=== PATIENT | female | born 1945 | race Caucasian/White ===

== ENCOUNTER 2017-05-07 08:05 | Inpatient (IN) | payer MEDICARE, BC ==
[~2017-05-07 08:05] MED LIST: LACTATED RINGERS 1,000 ML IV SCH; SODIUM CHLORIDE 0.9% 1,000 ML IV SCH
[2017-05-07] MEDS ORDERED: PROTAMINE SULFATE 10 MG/ML 5 ML VIAL IV ONE ×2 (09:32→13:15)
[2017-05-07] MEDS ORDERED: PROPOFOL 10 MG/ML 20 ML VIAL IV ONE (09:32)
[2017-05-07] MEDS ORDERED: HEPARIN SODIUM,PORCINE 10,000 UNIT/ML 1 ML VIAL ONE (09:32)
[2017-05-07] MEDS ORDERED: LIDOCAINE 1% INJ 10MG/ML (20 ML MDV) ONE (09:32)
[2017-05-07] MEDS ORDERED: SUCCINYLCHOLINE CHLORIDE VIAL 200 MG/10 ML VIAL IV ONE (09:32)
[2017-05-07] MEDS ORDERED: PHENYLEPHRINE-0.9% NACL SYG 1 MG/10 ML SYRINGE ONE (09:32)
[2017-05-07] MEDS ORDERED: ISOPROTERENOL 250 MCG/1.25 ML SYR IV ONE (09:32)
[2017-05-07] MEDS ORDERED: MIDAZOLAM 2 MG/2 ML VIAL ONE (09:32)
[2017-05-07] MEDS ORDERED: fentaNYL (PF) 50 MCG/ML 2 ML AMP ONE (09:32)
[2017-05-07] MEDS ORDERED: FUROSEMIDE 10 MG/ML 2 ML VIAL ONE (09:32)
[2017-05-07] MEDS ORDERED: LIDOCAINE 2% INJ 20 MG/ML SQ ONE (10:26)
[2017-05-07] MEDS ORDERED: HEPARIN SODIUM,PORCINE/D5W PMX 25,000 UNIT in DEXTROSE/WATER 1 500ML.BAG IV ONE (10:43)
[2017-05-07] MEDS ORDERED: ACETAMINOPHEN TAB 325 MG TAB PO PRN (13:10)
[2017-05-07] MEDS ORDERED: IOHEXOL 350 MG/ML 100 ML BOTTLE INJ ONE ×2 (13:19)
--- NOTE | 2017-05-07 13:22 | P.PCN ---
Preoperative Diagnosis: Procedures performed ([facility] - CRYO Ablation) Invasive hemodynamic monitoring while general anesthesia, right femoral arterial line for monitoring and sampling Comprehensive diagnostic EP study with attempted arrhythmia induction CS pacing and recording Drug infusion Catheter the mapping of the tachycardia (NOT 3D mapping) Intracardiac echocardiography Pulmonary vein isolation with transseptal and comprehensive EPS, [id number] Procedure details Patient was brought to the EP lab in a fasting state. Written informed consent was obtained prior to the procedure. Procedure performed under general anesthesia After initial muscle relaxant use, muscle relaxants were not given thereafter in order to assess phrenic nerve during procedure Patient prepped and draped as per protocol Full cryo-set up with standard preparation of the cryoablation tools done Femoral Venous access obtained on the right and left groins Sheaths placed Diagnostic catheters for the high right atrium, phrenic nerve stimulation and pacing, His bundle, RV and coronary sinus placed Intracardiac echo catheter placed Long sheath placed in the right atrium Left and right transseptal catheterization performed under intracardiac echo guidance Intravenous heparin with aCT above 300 Later, catheter positioning and balloon positioning under intracardiac echo Baseline measurements Sinus cycle length 880 ms, VA interval 176 ms, QRS 76, AH 120 ms, HV 52 ms Comprehensive diagnostic EP study with drug infusion Atrial pacing performed from the high right atrium and the coronary sinus Sinus node recovery time at 600 ms was 1113 ms. Corresponding corrected sinus node recovery time was within normal limits. AV node Wenckebach block 390 ms. VA Wenckebach block greater than 700 ms. AV node Wenckebach block from the Morales sinus 420 ms. Extra stimulation from the coronary sinus 600/310 ms, AV node ERP. No atrial fibrillation induced with Isuprel infusion. No other SVT was induced Transseptal catheterization performed RA pressure 11/5/9 LA pressure is 20/7/9 Transseptal catheterization performed with standard sheath. The cryoablation sheath was then placed with an over the wire exchange without any acute complications. All 4 pulmonary veins were isolated in the following sequence: Left superior followed by left inferior followed by right superior followed by right inferior The cryo-ablation balloon was placed at the os of each vein 1.5 mL of IV dye was injected to confirm an occluded vein Goal during cryoablation was to achieve -30C in the first 30 seconds. If not the balloon was repositioned to obtain this result After completion of Cryoblation with durations from 180-240 seconds, entrance block was confirmed with the Attain circular catheter in a roving fashion around the antrum of the pulmonary veins Phrenic nerve pacing was performed from the SVC, right innominate vein area and diaphragm voltage was monitored as well as manually Left superior pulmonary vein Successful isolation, to cry lesions 3 minutes each Left inferior pulmonary vein Successful isolation to cry lesions 3 minutes each Right superior pulmonary vein, during phrenic nerve pacing 1 cryoablation of 3 minutes complete isolation Right inferior pulmonary vein, during phrenic nerve pacing Total of 5 minutes of cryo, complete isolation, os of the right inferior vein very close to the superior vein but separate. 1 cryoablation was prematurely terminated at 95 seconds because of esophageal cooling down to 27.5C. Quick recovery. Inferior vein completely isolated At the end of the procedure the Achieve catheter was once again used to check for entrance block Phrenic nerve stimulation was performed to confirm diaphragmatic stimulation the end of the procedure Cine fluoroscopy was performed at the very end of the procedure to confirm movement of both diaphragms with inspiration and expiration At the end of the procedure the patient was extubated Heparin was reversed Venous sheaths were removed and hemostasis assured Result Successful pulmonary vein isolation using cryo-ablation Complete entrance block in all 4 veins confirmed No evidence for phrenic nerve injury Anesthesia: GETA Condition: stable Disposition: floor
[2017-05-07] MEDS ORDERED: SODIUM CHLORIDE 0.9% 1,000 ML IV ONE (13:28)
[2017-05-07] MEDS ORDERED: LACTATED RINGERS 1,000 ML IV ONE (13:28)
[2017-05-07] MEDS ORDERED: ACETAMINOPHEN IV (For NPO) 1,000 MG in EMPTY BAG 1 BAG IVPB ONE (14:00)
[2017-05-07 16:17] VITALS: BMI 30.8
[2017-05-07] MEDS: HYDROcodone/APAP 5-325MG 1 EACH TAB PO PRN (20:25)
[2017-05-07] MEDS ORDERED: ONDANSETRON 4 MG/2 ML VIAL IVP PRN (20:44)
[2017-05-07] MEDS: ATORVASTATIN 20 MG TAB PO SCH (21:24)
[2017-05-07] MEDS: RIVAROXABAN 10 MG TAB PO SCH (21:25)
[2017-05-07] MEDS: DULoxetine HCL 30 MG CAPSULE.DR PO SCH (21:25)
[2017-05-07] MEDS: TEMAZEPAM 15 MG CAP PO PRN (21:32)
[2017-05-07] MEDS: HYDROmorphone 1 MG/ML 1 ML SYRINGE IVP PRN (21:42)
[2017-05-08 05:51] LABS: Basophils % (A) 0 %; CH 31.2; CHCM 31.8; Eosinophils # (A) 0.2 k/uL (0-0.7); Eosinophils % (A) 2 %; HCT 37.7 % (34.0-46.0); HGB 12.2 gm/dL (11.4-16.0); Luc # (Auto) 0.28; Luc % (Auto) 3; Lymphocytes # (A) 0.8 k/uL (1.0-4.8); Lymphocytes % (A) 7 %; MCH 31.8 pg (25.0-35.0); MCHC 32.4 g/dL (31.0-37.0); MCV 98.3 fL (80.0-100.0); Mean Platelet Volume 7.6; Monocytes # (A) 0.7 k/uL (0-1.0); Monocytes % (A) 6 %; Neutrophils # (A) 9.5 k/uL (1.3-7.7); Neutrophils % (A) 83 %; RBC 3.83 m/uL (3.80-5.40); RDW 13.4 % (11.5-15.5); WBC 11.5 k/uL (3.8-10.6); WBC (Perox) 11.47
[2017-05-08 06:09] LABS: Calcium 9.1 mg/dL (8.4-10.2); Potassium 4.1 mmol/L (3.5-5.1)
[2017-05-08] MEDS: LEVOTHYROXINE 75 MCG TAB PO SCH (06:34)
[2017-05-08] MEDS: METOPROLOL SUCCINATE (ER) 50 MG TAB.ER.24H PO SCH (08:01)
[2017-05-08] MEDS: LISINOPRIL 2.5 MG TAB PO SCH (08:01)
[2017-05-08] MEDS: HYDROcodone/APAP 5-325MG 1 EACH TAB PO PRN ×2 (08:34→19:00)
[2017-05-08] MEDS ORDERED: FAMOTIDINE 20 MG TAB PO STA (15:11)
--- NOTE | 2017-05-08 20:33 | P.PN ---
Subjective Patient underwent cryoablation of the pulmonary veins successfully yesterday. Initially her groins are stable however at night last night she did have oozing and bleeding from the right groin but after holding manual compression and a FemoStop for a few hours she settled down and this morning she was ablating the hallways and a groin is fine without any hematoma or any further bleeding. She did complain of some pleuritic chest discomfort started her on colchicine 0.6 g twice daily along with Pepcid and no dizziness no lightheadedness she remains in sinus rhythm On examination, blood pressure is 132/58 mmHg and 120/50. His mercury heart rates in the 80s in the 1980s and 90s he is afebrile 97.9F Breath sounds are normal no rhonchi no crackles Heart sounds S1 and S2 are normal there is no rub no murmur Abdomen is soft nontender Extremities are warm no edema in the groins of healed well this no hematoma Impression Paroxysmal atrial fibrillation Status post pulmonary vein isolation Pleuritic chest discomfort, being treated with colchicine Dyslipidemia on statins Hypothyroidism on levothyroxine Hypertension on Zestril Plan Continue anticoagulation with Xarelto continue all other medications and discharge planning for tomorrow Labs are reviewed hemoglobin 12.2 electrolytes and normal BUN 19 creatinine 1.5 Objective - Vital Signs Vital signs: Vital Signs Temp 97.9 F 05/08/17 15:53 Pulse 90 05/08/17 15:59 Resp 18 05/08/17 15:59 BP 132/58 05/08/17 15:53 Pulse Ox 94 L 05/08/17 15:53 Intake & Output 05/08/17 05/08/17 05/09/17 06:59 18:59 06:59 Intake Total 1200 Output Total 1310 0 Balance -1310 1200 Weight 89.6 kg Intake: Oral 1200 Output: Urine 1310 0 Other: Voiding Method Indwelling Catheter # Voids 0 - Labs CBC & Chem 7: 05/08/17 05:37 05/08/17 05:37 Labs: Abnormal Lab Results - Last 24 Hours (Table) 05/08/17 05/08/17 Range/Units 05:37 05:37 WBC 11.5 H (3.8-10.6) k/uL Neutrophils # 9.5 H (1.3-7.7) k/uL Lymphocytes # 0.8 L (1.0-4.8) k/uL BUN 19 H (7-17) mg/dL Creatinine 1.50 H (0.52-1.04) mg/dL Glucose 127 H (74-99) mg/dL
[2017-05-08] MEDS: DULoxetine HCL 30 MG CAPSULE.DR PO SCH (21:15)
[2017-05-08] MEDS: ATORVASTATIN 20 MG TAB PO SCH (21:15)
[2017-05-08] MEDS: COLCHICINE 0.6 MG TAB PO SCH (21:16)
[2017-05-08] MEDS: RIVAROXABAN 10 MG TAB PO SCH (21:16)
[2017-05-08] MEDS: TEMAZEPAM 15 MG CAP PO PRN (21:29)
[2017-05-08] MEDS: HYDROmorphone 1 MG/ML 1 ML SYRINGE IVP PRN (21:29)
[2017-05-09 03:51] LABS: Glucose,Whole Blood 148 mg/dL (75-99)
--- NOTE | 2017-05-09 04:21 | CT ---
EXAM: CT Head Without Intravenous Contrast CLINICAL HISTORY: Reason: Stroke Symptoms TECHNIQUE: Axial computed tomography images of the head/brain without intravenous contrast. DLP is 1081.60 mGy-cm. This CT exam was performed using one or more of the following dose reduction techniques: automated exposure control, adjustment of the mA and/or kV according to patient size, and/or use of iterative reconstruction technique. COMPARISON: No relevant prior studies available. FINDINGS: Brain: Unremarkable. No hemorrhage. Minimal microangiopathy is likely present. No edema. Ventricles: Unremarkable. No ventriculomegaly. Bones/joints: Mild hyperostosis frontalis interna is seen. No acute fracture. Soft tissues: Unremarkable. Vasculature: Calcifications involving the bilateral carotid siphons are noted. Sinuses: 0.6 cm cyst mucous retention cyst versus polyp partially visualized involving the anterior right maxillary sinus. Mastoid air cells: Unremarkable as visualized. No mastoid effusion. IMPRESSION: No evidence of acute transcortical infarct or acute intracranial hemorrhage. Probable minimal microangiopathy. If there is further clinical concern, short-term interval repeat CT of the head versus MRI of the brain is recommended for follow-up. [employer] 05/09/17 04:23 Call Doctor Regarding Stroke, called Dr. Shah on 05/09 04:22 (-04:00)
[2017-05-09] MEDS ORDERED: SODIUM CHLORIDE 0.9% 250 ML IV ONE (04:51)
[2017-05-09 04:52] LABS: CH 31.2; CHCM 31.8; HDW 2.13; HGB 10.9 gm/dL (11.4-16.0); MCH 32.5 pg (25.0-35.0); MCHC 32.9 g/dL (31.0-37.0); MCV 98.7 fL (80.0-100.0); Mean Platelet Volume 7.7; RBC 3.34 m/uL (3.80-5.40); RDW 13.2 % (11.5-15.5)
[2017-05-09] MEDS ORDERED: SODIUM CHLORIDE 0.9% 1,000 ML IV SCH (05:00)
[2017-05-09 05:04] LABS: INR 1.3 (<1.2); Prothrombin Time 12.5 sec (9.0-12.0)
[2017-05-09 05:07] LABS: Potassium 3.7 mmol/L (3.5-5.1)
[2017-05-09] MEDS: LEVOTHYROXINE 75 MCG TAB PO SCH (06:06)
[2017-05-09] MEDS: METOPROLOL SUCCINATE (ER) 50 MG TAB.ER.24H PO SCH (08:19)
[2017-05-09] MEDS: COLCHICINE 0.6 MG TAB PO SCH (08:19)
[2017-05-09] MEDS: LISINOPRIL 2.5 MG TAB PO SCH (08:19)
[2017-05-09] MEDS ORDERED: FAMOTIDINE 20 MG TAB PO SCH (09:00)
[2017-05-09 09:24] VITALS: RESP 18
[2017-05-09] MEDS: HYDROcodone/APAP 5-325MG 1 EACH TAB PO PRN (10:26)
[2017-05-09 11:15] VITALS: PULSE 94; TEMP 96.9
[2017-05-09 11:44] VITALS: BP 98/54
--- NOTE | 2017-05-09 13:11 | P.DS ---
Providers Date of admission: 05/09/17 10:14 Attending physician: Lui Shah Primary care physician: Kylie Morrow [facility] Course: Patient is doing well. Last night she felt nauseous and sweaty and collapsed while coming out of the bathroom and it was thought that she may have had some left-sided weakness. Computed tomography scan did not show any abnormalities. I spoke to the radiologist. She received IV fluids and improved significantly. This morning she is doing well. I saw her early in the morning and then make him walk around. Stop IV fluids, got out of bed, incentive spirometry given did patient feels well now she really was to go home. She denies any chest discomfort no dizziness lightheadedness she does not feel weak when she is walking around. She does have a pruritic sensation of pain in the chest and I' m treating her with colchicine. She will continue all her medications as before without any changes including anticoagulation. I'm giving her colchicine and Pepcid for 3 days. I'm also giving her Saragosa for 5 days for pain control Vitals are stable blood pressure is normal she's afebrile 96.9F blood pressure is 98/54 mmHg and therefore I'm asking the patient to hold lisinopril to lisinopril again on the Breath sounds are reduced bilaterally but no rhonchi no crackles Heart sounds are normal normal S1 normal S2 no murmurs no gallops no rub Abdomen is soft nontender Extent is warm no edema Groin is healed well no hematoma mildly tender Impression Paroxysmal atrial fibrillation with RVR status post cryoablation Plan Continue anticoagulation Stop lisinopril until I see her continue all other medications as prescribed White count was reviewed she is afebrile now and if she has any problems she will call me. She is post ablation and low-grade fever and an mildly elevated white count is not uncommon on day 2 Patient Condition at Discharge: Stable Plan - Discharge Summary New Discharge Prescriptions: New Famotidine [Pepcid] 20 mg PO DAILY #7 tablet Colchicine [Colcrys] 0.6 mg PO BID #6 tablet HYDROcodone/APAP 5-325MG [Saragosa 5-325] 1 tab PO Q8H #15 tab No Action Raloxifene [Evista] 60 mg PO DAILY Levothyroxine Sodium [Synthroid] 150 mcg PO DAILY Multivitamins, Thera [Multivitamin (formulary)] 1 tab PO DAILY Cyanocobalamin [Vitamin B-12] 1,000 mcg PO DAILY Cholecalciferol [Vitamin D3] 2,000 unit PO DAILY DULoxetine HCL [Cymbalta] 90 mg PO HS Fiber Advance 2 cap PO DAILY Lisinopril [Zestril] 2.5 mg PO DAILY #30 tab Atorvastatin [Lipitor] 20 mg PO HS Folic Acid 1 mg PO DAILY@1200 #30 tab Metoprolol Succinate (ER) [Toprol XL] 50 mg PO DAILY Magnesium Chloride [Slow-Mag] 128 mg PO DAILY Rivaroxaban [Xarelto] 20 mg PO HS Discharge Medication List Raloxifene [Evista] 60 mg PO DAILY 02/27/15 [History] Cholecalciferol [Vitamin D3] 2,000 unit PO DAILY 06/26/15 [History] Cyanocobalamin [Vitamin B-12] 1,000 mcg PO DAILY 06/26/15 [History] DULoxetine HCL [Cymbalta] 90 mg PO HS 06/26/15 [History] Fiber Advance 2 cap PO DAILY 06/26/15 [History] Levothyroxine Sodium [Synthroid] 150 mcg PO DAILY 06/26/15 [History] Multivitamins, Thera [Multivitamin (formulary)] 1 tab PO DAILY 06/26/15 [History ] Lisinopril [Zestril] 2.5 mg PO DAILY #30 tab 07/03/15 [Rx] Atorvastatin [Lipitor] 20 mg PO HS 10/18/15 [History] Folic Acid 1 mg PO DAILY@1200 #30 tab 10/22/15 [Rx] Magnesium Chloride [Slow-Mag] 128 mg PO DAILY 05/04/17 [History] Metoprolol Succinate (ER) [Toprol XL] 50 mg PO DAILY 05/04/17 [History] Rivaroxaban [Xarelto] 20 mg PO HS 05/04/17 [History] Colchicine [Colcrys] 0.6 mg PO BID #6 tablet 05/09/17 [Rx] Famotidine [Pepcid] 20 mg PO DAILY #7 tablet 05/09/17 [Rx] HYDROcodone/APAP 5-325MG [Saragosa 5-325] 1 tab PO Q8H #15 tab 05/09/17 [Rx] Follow up Appointment(s)/Referral(s): Lui Shah MD [STAFF PHYSICIAN] - 05/16/17 6:30 pm Patient Instructions/Handouts: *Surgery [facility] - After Heart Catheterization - Tool Design Engineer Instructions, Atrial Fibrillation (DC), Cardiac Ablation (DC)
== END 2017-05-09 13:25 | disposition home or self-care (01) | DRG 274 ==
LOC: CATHEP 08:05 → 6SEL 13:16 → CATHEP 05-09 10:16
PROVIDERS: ADMIT Internal Medicine Clinical Cardiac Electrophysiology; ATTEND Internal Medicine Clinical Cardiac Electrophysiology
PROC: 4A023FZ Measurement of Cardiac Rhythm, Percutaneous Approach (ICD-10-PCS; principal; 2017-05-09)
PROC: 4A0234Z Measurement of Cardiac Electrical Activity, Percutaneous Approach (ICD-10-PCS; 2017-05-09)
DX: I48.0 Paroxysmal atrial fibrillation (principal); I10 Essential (primary) hypertension; E78.5 Hyperlipidemia, unspecified; E03.9 Hypothyroidism, unspecified; Z79.01 Long term (current) use of anticoagulants
CPT/HCPCS: 70450; 80048; 80051; 80061; 82550; 82565; 82947; 84520; 85025; 85027; 85347; 85610; 85730; 93609; 93623; 93656; 93662

== ENCOUNTER 2017-05-18 07:45 | Inpatient (IN) | payer MEDICARE, BC ==
[2017-05-18] MEDS ORDERED: SODIUM CHLORIDE 0.9% 1,000 ML IV STA (08:07)
[2017-05-18] MEDS ORDERED: ONDANSETRON 4 MG/2 ML VIAL IVP STA (08:07)
[2017-05-18] MEDS ORDERED: HYDROmorphone 1 MG/ML 1 ML SYRINGE IVP STA (08:07)
[2017-05-18] MEDS ORDERED: RX INFO: IV CONTRAST WAS GIVEN 1 EACH MISC MISCELLANE PRN ×2 (08:08→08:39)
--- NOTE | 2017-05-18 08:30 | ED ---
General Adult HPI <Merlin Guerra - Last Filed: 05/18/17 11:52> - General Source: patient, RN notes reviewed Mode of arrival: wheelchair Limitations: no limitations <Juliana Martinez - Last Filed: 05/18/17 12:05> - General Chief complaint: Recheck/Abnormal Lab/Rx Stated complaint: post op pain Time Seen by Provider: 05/18/17 08:00 - History of Present Illness Initial comments: 72-year-old female presents to the emergency department with a chief complaint of pain across the lower rib cage. Patient underwent an ablation a week ago Sunday. Patient states that she developed this pain on Sunday. Only 2 days ago. Patient states she did start taking those. Patient states that she has had no nausea or vomiting. The pain does radiate into the abdomen. It is just this constant pain. Patient states it hurts to touch her abdomen. Patient denies nausea vomiting or diarrhea. Patient is unable to characterize pain in any other way and states that she's not having any other symptoms with this.Patient denies any recent fever, chills, shortness of breath, chest pain, back pain, nausea vomiting, numbness or tingling, dysuria or hematuria, constipation or diarrhea, headaches or visual changes, or any other current symptoms. (Juliana Martinez) - Related Data Home Medications Medication Instructions Recorded Confirmed Raloxifene [Evista] 60 mg PO DAILY 02/27/15 05/18/17 Cholecalciferol [Vitamin D3] 2,000 unit PO DAILY 06/26/15 05/18/17 Cyanocobalamin [Vitamin B-12] 1,000 mcg PO DAILY 06/26/15 05/18/17 DULoxetine HCL [Cymbalta] 90 mg PO HS 06/26/15 05/18/17 Fiber Advance 2 cap PO DAILY 06/26/15 05/18/17 Levothyroxine Sodium [Synthroid] 150 mcg PO DAILY 06/26/15 05/18/17 Multivitamins, Thera [Multivitamin 1 tab PO DAILY 06/26/15 05/18/17 (formulary)] Atorvastatin [Lipitor] 20 mg PO HS 10/18/15 05/18/17 Magnesium Chloride [Slow-Mag] 128 mg PO DAILY 05/04/17 05/18/17 Rivaroxaban [Xarelto] 20 mg PO HS 05/04/17 05/18/17 Metoprolol Succinate [Toprol XL] 25 mg PO DAILY 05/18/17 05/18/17 Previous Rx's Medication Instructions Recorded Lisinopril [Zestril] 2.5 mg PO DAILY #30 tab 07/03/15 Folic Acid 1 mg PO DAILY@1200 #30 tab 10/22/15 Colchicine [Colcrys] 0.6 mg PO BID #6 tablet 05/09/17 Famotidine [Pepcid] 20 mg PO DAILY #7 tablet 05/09/17 HYDROcodone/APAP 5-325MG [[place]utton 1 tab PO Q8H #15 tab 05/09/17 5-325] Allergies Allergy/AdvReac Type Severity Reaction Status Date / Time paroxetine HCl [From Paxil] Allergy Hallucinati Verified 05/18/17 08:01 ons pregabalin [From Lyrica] Allergy Hallucinati Verified 05/18/17 08:01 ons Review of Systems ROS Other: All systems not noted in ROS Statement are negative. <Merlin Guerra - Last Filed: 05/18/17 11:52> ROS Other: All systems not noted in ROS Statement are negative. <Juliana Martinez - Last Filed: 05/18/17 12:05> ROS Statement: Those systems with pertinent positive or pertinent negative responses have been documented in the HPI. Past Medical History Past Medical History: Atrial Fibrillation, Cancer, Fibromyalgia, Hyperlipidemia , Hypertension, Thyroid Disorder Additional Past Medical History / Comment(s): lymphoma diagnosed fall 2014 with last chemo completed 05/21/15, systolic dysfunction-EF 40%,shingles fall 2014, anemia. History of Any Multi-Drug Resistant Organisms: None Reported Past Surgical History: Tonsillectomy Additional Past Surgical History / Comment(s): lymph node bx-forehead, hemorrhoids, left carotid endartectomy 2004, bilateral cataracts removed. COLONOSCOPY Past Anesthesia/Blood Transfusion Reactions: Previous Problems w/ Anesthesia Additional Past Anesthesia/Blood Transfusion Reaction / Comment(s): Patient states that anaesthesia wears off very slowly and she is drowsy for a while. Past Psychological History: No Psychological Hx Reported Smoking Status: Never smoker Past Alcohol Use History: None Reported Past Drug Use History: None Reported - Past Family History Sister(s) Family Medical History: Cancer Mother Family Medical History: Congestive Heart Failure (CHF), Coronary Artery Disease (CAD) Additional Family Medical History / Comment(s): Mother smoked. She at age 75 yrs. Father Family Medical History: Congestive Heart Failure (CHF), Coronary Artery Disease (CAD), Dementia Additional Family Medical History / Comment(s): Father smoked. He at age 75 yrs. <Juliana Martinez - Last Filed: 05/18/17 12:05> General Exam <Merlin Guerra - Last Filed: 05/18/17 11:52> Limitations: no limitations <Juliana Martinez - Last Filed: 05/18/17 12:05> - General Exam Comments Initial Comments: General: The patient is awake and alert, in no distress, and does not appear acutely ill. Eye: Pupils are equal, round and reactive to light, extra-ocular movements are intact; there is normal conjunctiva bilaterally. No signs of icterus. Ears, nose, mouth and throat: There are moist mucous membranes and no oral lesions. Neck: The neck is supple, there is no tenderness. Cardiovascular: There is a regular rate and rhythm. No murmur, rub or gallop is appreciated. Respiratory: Lungs are clear to auscultation, respirations are non-labored, breath sounds are equal. No wheezes, stridor, rales, or rhonchi. Gastrointestinal: Soft, distended, diffusely mildly tender abdomen without masses or organomegaly noted. There is no rebound or guarding present. No CVA tenderness. Bowel sounds are unremarkable. Back: There is no tenderness to palpation in the midline. There is no obvious deformity. No rashes noted. Musculoskeletal: Normal ROM, no tenderness, There is no pedal edema. There is no calf tenderness or swelling. Sensation intact. Pulses equal bilaterally 2+. Neurological: CN II-XII intact, There are no obvious motor or sensory deficits. Coordination appears grossly intact. Speech is normal. Skin: Skin is warm and dry and no rashes or lesions are noted. Psychiatric: Cooperative, appropriate mood & affect, normal judgment. (Juliana Martinez) Course <Merlin Guerra - Last Filed: 05/18/17 11:52> <Juliana Martinez - Last Filed: 05/18/17 12:05> Vital Signs 05/18/17 05/18/1705/18/17 07:49 08:49 11:06 Temperature 98.1 F 98.2 F Pulse Rate 108 H 114 H 113 H Respiratory 20 22 20 Rate Blood Pressure 108/52 133/60 143/60 O2 Sat by Pulse 95 90 L 90 L Oximetry 05/18/17 11:54 Temperature Pulse Rate 114 H Respiratory 18 Rate Blood Pressure 126/65 O2 Sat by Pulse 93 L Oximetry - Reevaluation(s) Reevaluation #1: 05/18/17 08:52 PA supervision: I did personally do a [id number] evaluation the patient she does demonstrate tenderness palpation over the abdomen in all quadrants. She also has increased tympany and percussion of the abdomen. She does states she did have diarrhea recently and is still passing flatus. She denies any fevers chills or sweats but she states she does have abdominal pain and right upper quadrant pain as well as right lower rib pain. The workup is in progress at this time. I do agree with the current assessment and plan. 05/18/17 11:25 Reassessment of the patient she still is awake alert oriented. She does have diminished breath sounds and somewhat distant heart sounds no JVD is noted. I did discuss the findings with her. (Merlin Guerra) Reevaluation #2: 05/18/17 11:53 I did discuss the case with Dr. Madeleine Monique and Dr. Galeas. The patient will be admitted to the telemetry floor reevaluation is awake alert oriented 3 in no distress at this time. She appears be hemodynamically stable. (Merlin Guerra) EKG Findings - EKG Comments: EKG Findings:: Sinus tachycardia with occasional premature ventricular complexes , 111 bpm, normal axis, no atopy, no S-T depressions or elevations, <Juliana Martinez - Last Filed: 05/18/17 12:05> Medical Decision Making - Lab Data Result diagrams: 05/18/17 08:40 05/18/17 08:40 <Merlin Guerra - Last Filed: 05/18/17 11:52> - Lab Data Result diagrams: 05/18/17 08:40 05/18/17 08:40 - Radiology Data Radiology results: report reviewed, image reviewed <Juliana Martinez - Last Filed: 09/29/17 12:05> - Medical Decision Making 72-year-old female presents for pain in the abdomen. Patient did have an ablation done about 9 days ago. At this time patient's lab work has been reviewed. At this time is that the leukocytosis is most likely reactive in her lactic is elevated due to fluid depletion. Patient's was given a liter to help correct this. Troponin is elevated however this could be related to the recent ablation. We will trend her troponins out. At this time we contacted cardiology as well as pulmonology regarding the patient's case. At this time we will admit the patient we did order an echo that they will follow up on. We did discuss this with the patient who is in agreement with this plan. (Juliana Martinez) - Lab Data Lab Results 05/18/17 05/18/17 05/18/17 Range/Units 08:40 08:40 08:40 WBC 21.3 H (3.8-10.6) k/uL RBC 3.35 L (3.80-5.40) m/uL Hgb 10.5 L (11.4-16.0) gm/dL Hct 32.8 L (34.0-46.0) % MCV 98.0 (80.0-100.0) fL MCH 31.3 (25.0-35.0) pg MCHC 31.9 (31.0-37.0) g/dL RDW 13.5 (11.5-15.5) % Plt Count 645 H D (150-450) k/uL Neutrophils % 93 % Lymphocytes % 3 % Monocytes % 3 % Eosinophils % 1 % Basophils % 0 % Neutrophils # 19.9 H (1.3-7.7) k/uL Lymphocytes # 0.5 L (1.0-4.8) k/uL Monocytes # 0.6 (0-1.0) k/uL Eosinophils # 0.2 (0-0.7) k/uL Basophils # 0.0 (0-0.2) k/uL PT (9.0-12.0) sec INR (<1.2) APTT (22.0-30.0) sec Sodium 136 L (137-145) mmol/L Potassium 3.4 L (3.5-5.1) mmol/L Chloride 98 (98-107) mmol/L Carbon Dioxide 25 (22-30) mmol/L Anion Gap 13 mmol/L BUN 12 (7-17) mg/dL Creatinine 1.00 (0.52-1.04) mg/dL Est GFR (MDRD) Af Amer >60 (>60 ml/min/1.73 sqM) Est GFR (MDRD) Non-Af 55 (>60 ml/min/1.73 sqM) Glucose 141 H (74-99) mg/dL Plasma Lactic Acid Brett (0.7-2.0) mmol/L Calcium 9.3 (8.4-10.2) mg/dL Phosphorus 3.9 (2.5-4.5) mg/dL Magnesium 1.7 (1.6-2.3) mg/dL Total Bilirubin 0.8 (0.2-1.3) mg/dL AST 23 (14-36) U/L ALT 35 (9-52) U/L Alkaline Phosphatase 126 (38-126) U/L Total Creatine Kinase (30-135) U/L Total Protein 5.6 L (6.3-8.2) g/dL Albumin 2.7 L (3.5-5.0) g/dL Amylase 30 (30-110) U/L Lipase 47 (23-300) U/L Urine Color Urine Appearance (Clear) Urine pH (5.0-8.0) Ur Specific [place] (1.001-1.035) Urine Protein (Negative) Urine Glucose (UA) (Negative) Urine Ketones (Negative) Urine Blood (Negative) Urine Nitrite (Negative) Urine Bilirubin (Negative) Urine Urobilinogen (<2.0) mg/dL Ur Leukocyte Esterase (Negative) Urine WBC (0-5) /hpf Ur Squamous Epith Cells (0-4) /hpf Hyaline Casts (0-2) /lpf Urine Mucus (None) /hpf 05/18/17 05/18/17 05/18/17 Range/Units 08:40 08:40 08:40 WBC (3.8-10.6) k/uL RBC (3.80-5.40) m/uL Hgb (11.4-16.0) gm/dL Hct (34.0-46.0) % MCV (80.0-100.0) fL MCH (25.0-35.0) pg MCHC (31.0-37.0) g/dL RDW (11.5-15.5) % Plt Count (150-450) k/uL Neutrophils % % Lymphocytes % % Monocytes % % Eosinophils % % Basophils % % Neutrophils # (1.3-7.7) k/uL Lymphocytes # (1.0-4.8) k/uL Monocytes # (0-1.0) k/uL Eosinophils # (0-0.7) k/uL Basophils # (0-0.2) k/uL PT 14.2 H (9.0-12.0) sec INR 1.5 H (<1.2) APTT 29.6 (22.0-30.0) sec Sodium (137-145) mmol/L Potassium (3.5-5.1) mmol/L Chloride (98-107) mmol/L Carbon Dioxide (22-30) mmol/L Anion Gap mmol/L BUN (7-17) mg/dL Creatinine (0.52-1.04) mg/dL Est GFR (MDRD) Af Amer (>60 ml/min/1.73 sqM) Est GFR (MDRD) Non-Af (>60 ml/min/1.73 sqM) Glucose (74-99) mg/dL Plasma Lactic Acid Brett 2.3 H* (0.7-2.0) mmol/L Calcium (8.4-10.2) mg/dL Phosphorus (2.5-4.5) mg/dL Magnesium (1.6-2.3) mg/dL Total Bilirubin (0.2-1.3) mg/dL AST (14-36) U/L ALT (9-52) U/L Alkaline Phosphatase (38-126) U/L Total Creatine Kinase (30-135) U/L Total Protein (6.3-8.2) g/dL Albumin (3.5-5.0) g/dL Amylase (30-110) U/L Lipase (23-300) U/L Urine Color Yellow Urine Appearance Cloudy H (Clear) Urine pH 5.5 (5.0-8.0) Ur Specific [place] 1.018 (1.001-1.035) Urine Protein 1+ H (Negative) Urine Glucose (UA) Negative (Negative) Urine Ketones Negative (Negative) Urine Blood Negative (Negative) Urine Nitrite Negative (Negative) Urine Bilirubin Negative (Negative) Urine Urobilinogen 2.0 (<2.0) mg/dL Ur Leukocyte Esterase Moderate H (Negative) Urine WBC 27 H (0-5) /hpf Ur Squamous Epith Cells 10 H (0-4) /hpf Hyaline Casts 14 H (0-2) /lpf Urine Mucus Occasional H (None) /hpf 05/18/17 Range/Units 08:40 WBC (3.8-10.6) k/uL RBC (3.80-5.40) m/uL Hgb (11.4-16.0) gm/dL Hct (34.0-46.0) % MCV (80.0-100.0) fL MCH (25.0-35.0) pg MCHC (31.0-37.0) g/dL RDW (11.5-15.5) % Plt Count (150-450) k/uL Neutrophils % % Lymphocytes % % Monocytes % % Eosinophils % % Basophils % % Neutrophils # (1.3-7.7) k/uL Lymphocytes # (1.0-4.8) k/uL Monocytes # (0-1.0) k/uL Eosinophils # (0-0.7) k/uL Basophils # (0-0.2) k/uL PT (9.0-12.0) sec INR (<1.2) APTT (22.0-30.0) sec Sodium (137-145) mmol/L Potassium (3.5-5.1) mmol/L Chloride (98-107) mmol/L Carbon Dioxide (22-30) mmol/L Anion Gap mmol/L BUN (7-17) mg/dL Creatinine (0.52-1.04) mg/dL Est GFR (MDRD) Af Amer (>60 ml/min/1.73 sqM) Est GFR (MDRD) Non-Af (>60 ml/min/1.73 sqM) Glucose (74-99) mg/dL Plasma Lactic Acid Brett (0.7-2.0) mmol/L Calcium (8.4-10.2) mg/dL Phosphorus (2.5-4.5) mg/dL Magnesium (1.6-2.3) mg/dL Total Bilirubin (0.2-1.3) mg/dL AST (14-36) U/L ALT (9-52) U/L Alkaline Phosphatase (38-126) U/L Total Creatine Kinase 37 (30-135) U/L Total Protein (6.3-8.2) g/dL Albumin (3.5-5.0) g/dL Amylase (30-110) U/L Lipase (23-300) U/L Urine Color Urine Appearance (Clear) Urine pH (5.0-8.0) Ur Specific [place] (1.001-1.035) Urine Protein (Negative) Urine Glucose (UA) (Negative) Urine Ketones (Negative) Urine Blood (Negative) Urine Nitrite (Negative) Urine Bilirubin (Negative) Urine Urobilinogen (<2.0) mg/dL Ur Leukocyte Esterase (Negative) Urine WBC (0-5) /hpf Ur Squamous Epith Cells (0-4) /hpf Hyaline Casts (0-2) /lpf Urine Mucus (None) /hpf Disposition <Merlin Guerra - Last Filed: 05/18/17 11:52> Decision Date: 05/18/17 Decision Time: 12:05 <Juliana Martinez - Last Filed: 05/18/17 12:05> Clinical Impression: Pleural effusion, Pericardial effusion, Dehydration, Elevated troponin Disposition: ADMITTED IP TO THIS [facility] Condition: Fair Referrals: Kylie Bernal III, MD [Primary Care Provider] - 1-2 days
[2017-05-18 09:00] LABS: Magnesium 1.7 mg/dL (1.6-2.3); Phosphorus 3.9 mg/dL (2.5-4.5)
[2017-05-18 09:15] LABS: Appearance,Urine Cloudy (Clear); Basophils % (A) 0 %; Bilirubin,Urine Negative (Negative); CH 31.2; Eosinophils # (A) 0.2 k/uL (0-0.7); Eosinophils % (A) 1 %; Glucose,Urine (UA) Negative (Negative); HCT 32.8 % (34.0-46.0); HDW 2.36; HGB 10.5 gm/dL (11.4-16.0); Ketones,Urine Negative (Negative); Leukocyte Esterase,Urine Moderate (Negative); Luc # (Auto) 0.15; Luc % (Auto) 1; Lymphocytes # (A) 0.5 k/uL (1.0-4.8); Lymphocytes % (A) 3 %; MCH 31.3 pg (25.0-35.0); MCHC 31.9 g/dL (31.0-37.0); Mean Platelet Volume 7.3; Monocytes # (A) 0.6 k/uL (0-1.0); Monocytes % (A) 3 %; Mucus,Urine Occasional /hpf; Neutrophils # (A) 19.9 k/uL (1.3-7.7); Neutrophils % (A) 93 %; Nitrite,Urine Negative (Negative); PH, Urine 5.5 (5.0-8.0); Particle Count 12000; Protein,Urine 1+ (Negative); RBC 3.35 m/uL (3.80-5.40); RDW 13.5 % (11.5-15.5); Specific Gravity,Urine 1.018 (1.001-1.035); Squamous Epithelial Cell,Urine 10 /hpf (0-4); UA Billing (MACRO vs. MICRO) MICRO; WBC 21.3 k/uL (3.8-10.6); WBC (Perox) 21.63; WBC,Urine 27 /hpf (0-5)
[2017-05-18 09:19] LABS: INR 1.5 (<1.2); Partial Thromboplastin Time 29.6 sec (22.0-30.0); Prothrombin Time 14.2 sec (9.0-12.0)
[2017-05-18 09:44] LABS: ALT 35 U/L (9-52); AST 23 U/L (14-36); Alkaline Phosphatase 126 U/L (38-126); Amylase 30 U/L (30-110); Anion Gap 13 mmol/L; Blood Urea Nitrogen 12 mg/dL (7-17); Calcium 9.3 mg/dL (8.4-10.2); Carbon Dioxide 25 mmol/L (22-30); Chloride 98 mmol/L (98-107); Glucose 141 mg/dL (74-99); Non-African American GFR(MDRD) 55 (>60 ml/min/1.73 sqM); Potassium 3.4 mmol/L (3.5-5.1); Sodium 136 mmol/L (137-145); Total Bilirubin 0.8 mg/dL (0.2-1.3); Total Protein 5.6 g/dL (6.3-8.2)
--- NOTE | 2017-05-18 11:02 | CT ---
CT CHEST FOR PULMONARY EMBOLISM. EXAMINATION TYPE: CT angio chest DATE OF EXAM: 05/18/2017 INDICATION: cardiac ablation this wk. pain rt side ribs/sob CT DLP: 299.0 mGycm, Automated exposure control for dose reduction was used. CONTRAST: Patient injected with 80 mL of Visipaque 320. COMPARISON: 12/29/2014 TECHNIQUE: CT of the chest is performed on a spiral scan at 2 mm thick sections. Study is performed with intravenous contrast timed for evaluation for pulmonary embolism. This will limit additional po rtions of the evaluation. 3-D MIP images reconstructed by the technologist are reviewed on the compu ter in the coronal and sagittal planes. FINDINGS: No persistent filling defects are evident to suggest an acute pulmonary embolism.. The images are jenny ewhat grainy causing mild limitation. No mediastinal or hilar adenopathy enlarged by CT criteria is evident. The ascending aorta diameter at the level of the main pulmonary artery is 3.4 cm. The main pulmonary artery diameter at the bifur cation is 2.6 cm. There is a moderate left and small right pleural effusion. A moderately large pericardial effusion is present. Compressive atelectasis at the left base with some mild compressive atelectasis at the right base. Very Limited CT section through the upper abdomen are unremarkable. IMPRESSIONS: 1. No acute pulmonary embolism. 2. Moderate left small right pleural effusion. 3. Moderately large pericardial effusion. Report was called to the emergency room physician by Dr. Lee by telephone at the time of interpretation.
--- NOTE | 2017-05-18 11:09 | CT ---
EXAMINATION TYPE: CT abdomen pelvis w con DATE OF EXAM: 05/18/2017 COMPARISON: 05/05/2015 INDICATION: cardiac ablation this wk. pain rt side ribs/sob DLP: 1476.80 mGycm, Automated exposure control for dose reduction was used. CONTRAST: 80 mL of Visipaque 320. Study performed without Oral Contrast TECHNIQUE: Axial images were obtained from above the diaphragm to the pubic rami in the axial plane a t 5 mm thick sections. Reconstructed images are reviewed on the computer in the coronal plane. FINDINGS: Limited CT sections are obtained the lung bases. The pleural effusions and pericardial effusion are again evident. Please see CTA chest of same date. CT ABDOMEN: Liver: Normal Spleen: Calcified splenic granuloma are present. Pancreas: Normal Adrenal glands: The adrenal glands are normal. Gallbladder: Normal Kidneys: No masses are evident. No hydronephrosis is present. No cysts are present. Delayed images were obtained through the kidneys, which remain unremarkable. Aorta: Vascular calcification is within the aorta. Inferior vena cava: Normal. CT PELVIS: Loops of bowel within the abdomen and pelvis are normal. Study is performed without oral contrast . Appendix: Not visualized Urinary bladder: Small amount of air is within urinary bladder. Correlate for recent instrumentation or cystitis. Genitourinary structures: Uterus is unremarkable. Adnexal regions are clear. Osseous structures: No suspicious lytic or sclerotic lesions. Facet degenerative changes are in the l ower lumbar spine. IMPRESSIONS: 1. Bilateral pleural effusions and a moderately large pericardial effusion. 2. Small amount of air within urinary bladder. This could be related to instrumentation or cystitis.
[2017-05-18 11:46] LABS: Creatine Kinase MB 0.4 ng/mL (0.0-2.4)
[2017-05-18] MEDS ORDERED: ONDANSETRON 4 MG/2 ML VIAL IVP PRN (11:48)
[2017-05-18] MEDS ORDERED: NALOXONE 0.4 MG/ML 1 ML VIAL IV PRN (11:48)
[2017-05-18] MEDS ORDERED: COLCHICINE 0.6 MG TAB PO STA (11:58)
[2017-05-18] MEDS ORDERED: [UNRECOGNIZED DRUG - REMARK] MISCELLANE PRN (12:00)
[2017-05-18] MEDS ORDERED: FAMOTIDINE 20 MG TAB PO STA (12:01)
[2017-05-18 12:02] LABS: Troponin I 0.044 ng/mL (0.000-0.034)
--- NOTE | 2017-05-18 12:29 | ECHOF ---
Referral Reason:pericardial effusion MEASUREMENTS -------- HEIGHT: 172.7 cm WEIGHT: 88.5 kg BP: 126/65 RVIDd: 2.7 cm (< 3.3) IVSd: 1.4 cm (0.6 - 1.1) LVIDd: 3.6 cm (3.9 - 5.3) LVPWd: 1.3 cm (0.6 - 1.1) IVSs: 1.7 cm LVIDs: 2.0 cm LVPWs: 1.6 cm LA Diam: 3.4 cm (2.7 - 3.8) LAESV Index (A-L): 18.92 ml/m Ao Diam: 3.8 cm (2.0 - 3.7) AV Cusp: 2.2 cm (1.5 - 2.6) MV EXCURSION: 15.271 mm (> 18.000) MV EF SLOPE: 47 mm/s (70 - 150) EPSS: 0.4 cm MV E Reynaldo: 0.98 m/s MV DecT: 185 ms MV A Reynaldo: 1.08 m/s MV E/A Ratio: 0.91 RAP: 5.00 mmHg RVSP: 51.40 mmHg FINDINGS -------- Resting tachycardia (HR>100bpm). This was a technically adequate study. The left ventricular size is normal. There is moderate concentric left ventricular hypertrophy. Left ventricular systolic function is hyperdynamic with an estimated EF of >70%. There is septal flattening in diastole and systole which is consistent with right ventricular pressure and volume overload. The right ventricle is normal in size. Normal LA size by volume 22+/-6 ml/m2. The right atrium was not well visualized. The aortic valve is trileaflet and appears structurally normal. Mild mitral annular calcification present. Mild tricuspid regurgitation present. There is moderate pulmonary hypertension. The right ventricular systolic pressure, as measured by Doppler, is 51.40mmHg. Trace/mild (physiologic) pulmonic regurgitation. The aortic root size is normal. IVC Not well visulized. There is a moderate pericardial effusion located near the left ventricle. CONCLUSIONS -------- 1. Resting tachycardia (HR>100bpm). 2. The aortic valve is trileaflet and appears structurally normal. 3. Mild mitral annular calcification present. 4. Mild tricuspid regurgitation present. 5. There is moderate pulmonary hypertension. 6. The right ventricular systolic pressure, as measured by Doppler, is 51.40mmHg. 7. Trace/mild (physiologic) pulmonic regurgitation. 8. The aortic root size is normal. 9. IVC Not well visulized. 10. There is a moderate pericardial effusion located near the left ventricle. 11. This was a technically adequate study. 12. The left ventricular size is normal. 13. There is moderate concentric left ventricular hypertrophy. 14. Left ventricular systolic function is hyperdynamic with an estimated EF of >70%. 15. There is septal flattening in diastole and systole which is consistent with right ventricular pressure and volume overload. 16. The right ventricle is normal in size. 17. Normal LA size by volume 22+/-6 ml/m2. 18. The right atrium was not well visualized. AD SETTER: Camille King RDCS
[2017-05-18] MEDS: HYDROcodone/APAP 5-325MG 1 EACH TAB PO SCH ×2 (12:35→21:39)
[2017-05-18] MEDS: SODIUM CHLORIDE 0.9% 1,000 ML IV SCH ×3 (12:41→23:47)
[2017-05-18] MEDS ORDERED: POTASSIUM CHLORIDE ER 20 MEQ TAB.ER PO STA (14:35)
--- NOTE | 2017-05-18 14:57 | P.CRDCN ---
History of Present Illness Consult date: 05/18/17 Chief complaint: Chest discomfort History of present illness: This is a pleasant 72-year-old female patient who sees Dr. Shah in on regular basis who just underwent an A. fib ablation last week and she was discharged from the hospital in stable medical condition and she was seen by Dr. Shah dysplastic used in the office and she was doing well at that time. Over the last 2 days she has been experiencing chest discomfort, in the mid of the chest, as a sharp kind of discomfort clearly worse with deep breath and cough and better with sitting and leaning forward. Denies having any fever or chills. Denies having any recent history of upper respiratory infection. She underwent a computed tomography scan of the chest which showed moderate pericardial effusion I subsequently the echocardiogram showed moderate pericardial effusion without any tamponade physiology. Beside that the WBC came in to be alleviated. The sed rate came in to be elevated as well. It seems that the patient has an acute pericarditis after ablation. She was started on colchicine. She has been maintaining sinus rhythm was sinus tachycardia. Past Medical History Past Medical History: Atrial Fibrillation, Cancer, Fibromyalgia, Hyperlipidemia , Hypertension, Thyroid Disorder Additional Past Medical History / Comment(s): Pt recently admitted to [facility] -had cardiac ablation. Other hx: AFib/RVR/tachycardia, lymphoma diagnosed fall 2014 with with abdominal mass- last chemo completed 05/21/15 and mass is gone per pt, has periods of weakness ever since cancer diagnosis, shingles fall 2014, anemia, essential tremors, hypothyroid, uti, skin cancer with removal. History of Any Multi-Drug Resistant Organisms: None Reported Past Surgical History: Cardiac Ablation, Tonsillectomy Additional Past Surgical History / Comment(s): lymph node bx-forehead, hemorrhoids, left carotid endartectomy 2004, bilateral cataracts removed with lens implants, COLONOSCOPY, basal cell skin cancer removed from abdomin, colonoscopy Past Anesthesia/Blood Transfusion Reactions: Previous Problems w/ Anesthesia Additional Past Anesthesia/Blood Transfusion Reaction / Comment(s): Patient states that anaesthesia wears off very slowly and she is drowsy for a while. Smoking Status: Never smoker - Past Family History Sister(s) Family Medical History: Cancer Mother Family Medical History: Congestive Heart Failure (CHF), Coronary Artery Disease (CAD) Additional Family Medical History / Comment(s): Mother smoked. She at age 75 yrs. Father Family Medical History: Congestive Heart Failure (CHF), Coronary Artery Disease (CAD), Dementia Additional Family Medical History / Comment(s): Father smoked. He at age 75 yrs. Medications and Allergies Home Medications Medication Instructions Recorded Confirmed Type Raloxifene [Evista] 60 mg PO DAILY 02/27/15 05/18/17 History Cholecalciferol [Vitamin D3] 2,000 unit PO DAILY 06/26/15 05/18/17 History Cyanocobalamin [Vitamin B-12] 1,000 mcg PO DAILY 06/26/15 05/18/17 History DULoxetine HCL [Cymbalta] 90 mg PO HS 06/26/15 05/18/17 History Fiber Advance 2 cap PO DAILY 06/26/15 05/18/17 History Levothyroxine Sodium [Synthroid] 150 mcg PO DAILY 06/26/15 05/18/17 History Multivitamins, Thera [Multivitamin 1 tab PO DAILY 06/26/15 05/18/17 History (formulary)] Lisinopril [Zestril] 2.5 mg PO DAILY #30 tab 07/03/15 05/18/17 Rx Atorvastatin [Lipitor] 20 mg PO HS 10/18/15 05/18/17 History Folic Acid 1 mg PO DAILY@1200 #30 tab 10/22/15 05/18/17 Rx Magnesium Chloride [Slow-Mag] 128 mg PO DAILY 05/04/17 05/18/17 History Rivaroxaban [Xarelto] 20 mg PO HS 05/04/17 05/18/17 History Colchicine [Colcrys] 0.6 mg PO BID #6 tablet 05/09/17 05/18/17 Rx Famotidine [Pepcid] 20 mg PO DAILY #7 tablet 05/09/17 05/18/17 Rx HYDROcodone/APAP 5-325MG [[place] 1 tab PO Q8H #15 tab 05/09/17 05/18/17 Rx 5-325] Metoprolol Succinate [Toprol XL] 25 mg PO DAILY 05/18/17 05/18/17 History Allergies Allergy/AdvReac Type Severity Reaction Status Date / Time paroxetine HCl [From Paxil] Allergy Hallucinati Verified 05/18/17 08:01 ons pregabalin [From Lyrica] Allergy Hallucinati Verified 05/18/17 08:01 ons Physical Exam Vitals: Vital Signs Temp Pulse Resp BP Pulse Ox 05/18/17 14:25 98.7 F 108 H 20 138/72 99 05/18/17 13:07 97.4 F L 111 H 17 119/57 96 05/18/17 12:41 116 H 22 142/62 95 05/18/17 11:54 114 H 18 126/65 93 L 05/18/17 11:06 113 H 20 143/60 90 L 05/18/17 08:49 98.2 F 114 H 22 133/60 90 L 05/18/17 07:49 98.1 F 108 H 20 108/52 95 Intake and Output 05/17/17 05/18/17 05/18/17 22:59 06:59 14:59 Other: Weight 88.451 kg Patient Weight 05/19/17 06:59 Weight 88.451 kg - Constitutional General appearance: no acute distress - Respiratory Respiratory: bilateral: CTA - Cardiovascular Rhythm: regular Heart sounds: normal: S1, S2 Results 05/18/17 08:40 05/18/17 08:40 Cardiac Enzymes 05/18/17 05/18/17 Range/Units 08:40 08:40 AST 23 (14-36) U/L CK-MB (CK-2) 0.4 (0.0-2.4) ng/mL Troponin I 0.044 H* (0.000-0.034) ng/mL Coagulation 05/18/17 Range/Units 08:40 PT 14.2 H (9.0-12.0) sec APTT 29.6 (22.0-30.0) sec CBC 05/18/17 Range/Units 08:40 WBC 21.3 H (3.8-10.6) k/uL RBC 3.35 L (3.80-5.40) m/uL Hgb 10.5 L (11.4-16.0) gm/dL Hct 32.8 L (34.0-46.0) % Plt Count 645 H D (150-450) k/uL Comprehensive Metabolic Panel 05/18/17 Range/Units 08:40 Sodium 136 L (137-145) mmol/L Potassium 3.4 L (3.5-5.1) mmol/L Chloride 98 (98-107) mmol/L Carbon Dioxide 25 (22-30) mmol/L BUN 12 (7-17) mg/dL Creatinine 1.00 (0.52-1.04) mg/dL Glucose 141 H (74-99) mg/dL Calcium 9.3 (8.4-10.2) mg/dL AST 23 (14-36) U/L ALT 35 (9-52) U/L Alkaline Phosphatase 126 (38-126) U/L Total Protein 5.6 L (6.3-8.2) g/dL Albumin 2.7 L (3.5-5.0) g/dL Current Medications Generic Name Dose Route Start Last Admin Trade Name Freq PRN Reason Stop Dose Admin Hydrocodone Bitart/Acetaminophen 1 each 05/18/17 12:00 05/18/17 12:35 [place] 5-325 PO 1 each Q8H ASHELY Administration Atorvastatin Calcium 20 mg 05/18/17 21:00 Lipitor PO HS [facility] Cholecalciferol 2,000 unit 05/19/17 09:00 Vitamin D3 PO DAILY [facility] Colchicine 0.6 mg 05/18/17 21:00 Colcrys PO BID [facility] Cyanocobalamin 1,000 mcg 05/19/17 09:00 Vitamin B-12 PO DAILY [facility] Duloxetine HCl 90 mg 05/18/17 21:00 Cymbalta PO HS [facility] Famotidine 20 mg 05/19/17 09:00 Pepcid PO DAILY [facility] Folic Acid 1 mg 05/18/17 14:00 Folic Acid PO DAILY@1200 [facility] Hydromorphone HCl 1 mg 05/18/17 11:48 Dilaudid IV Q3HR PRN Severe Pain Sodium Chloride 1,000 mls @ 80 mls/hr 05/18/17 12:00 05/18/17 12:41 Saline 0.9% IV 80 mls/hr .[id number] ASHELY Administration Levothyroxine Sodium 150 mcg 05/19/17 06:30 Synthroid PO DAILY@0630 [facility] Lisinopril 2.5 mg 05/19/17 09:00 Zestril PO DAILY [facility] Magnesium Oxide 400 mg 05/19/17 09:00 Mag-Ox PO DAILY [facility] Metoprolol Succinate 25 mg 05/19/17 09:00 Toprol Xl PO DAILY [facility] Miscellaneous Information 1 each 05/18/17 08:08 Rx Info: Iv Contrast Was Given MISCELLANE 05/20/17 08:08 DAILY PRN Per Protocol Miscellaneous Information 1 each 05/18/17 08:39 Rx Info: Iv Contrast Was Given MISCELLANE 05/20/17 08:39 DAILY PRN Per Protocol Miscellaneous Information 0 each 05/18/17 12:00 No Steroids MISCELLANE DIRECTED PRN FOR INFORMATION ONLY Multivitamins 1 each 05/19/17 12:00 Theragran PO DAILY@1200 [facility] Naloxone HCl 0.2 mg 05/18/17 11:48 Narcan IV Q2M PRN Opioid Reversal Ondansetron HCl 4 mg 05/18/17 11:48 Zofran IVP Q8HR PRN Nausea And Vomiting Raloxifene HCl 60 mg 05/19/17 09:00 Evista PO DAILY [facility] Rivaroxaban 20 mg 05/19/17 18:00 Xarelto PO DAILY@1800 [facility] Intake and Output 05/17/17 05/18/17 05/18/17 22:59 06:59 14:59 Other: Weight 88.451 kg Patient Weight 05/19/17 06:59 Weight 88.451 kg 05/18/17 08:40 05/18/17 08:40 Assessment and Plan Plan: This is a pleasant 72-year-old female patient was status post A. fib ablation presented to the hospital with pleuritic chest discomfort. The echocardiogram showed moderate pericardial effusion. The sed rate is elevated. We will continue the current medical treatment with colchicine. Probably repeat the echocardiogram in 48-72 hours to see the amount of pericardial effusion. Continue the current medical treatment for the A. fib was beta ashwini and anticoagulation. Follow-up with the patient.
[2017-05-18 15:19] LABS: Creatine Kinase MB 0.5 ng/mL (0.0-2.4)
[2017-05-18] MEDS: FOLIC ACID 1 MG TAB PO SCH (15:33)
[2017-05-18 15:41] LABS: Troponin I 0.037 ng/mL (0.000-0.034)
--- NOTE | 2017-05-18 16:05 | US ---
EXAMINATION TYPE: US chest DATE OF EXAM: 05/18/2017 COMPARISON: CLINICAL HISTORY: bilat pleural effusions. EXAM MEASUREMENTS: Right Pleural Effusion fluid pocket: 5.0 cm Right skin to fluid thickness: 3.2 cm Left Pleural Effusion fluid pocket: 5.2 cm Left skin to fluid thickness: 2.9 cm Right side marked for possible thoracentesis outside the dept. Left side marked for possible thoracentesis outside the dept. Pulmonologists are able to review the images in the patient?s EMR. IMPRESSIONS: 1. Bilateral pleural effusions.
[2017-05-18] MEDS: HYDROmorphone 1 MG/ML 1 ML SYRINGE IV PRN ×2 (17:37→21:52)
[2017-05-18 18:54] LABS: Basophils % (A) 0 %; CH 31.3; CHCM 31.3; Eosinophils # (A) 0.4 k/uL (0-0.7); Eosinophils % (A) 2 %; HGB 9.7 gm/dL (11.4-16.0); Hypochromasia Slight; Luc # (Auto) 0.18; Luc % (Auto) 1; Lymphocytes # (A) 0.6 k/uL (1.0-4.8); Lymphocytes % (A) 3 %; MCH 31.6 pg (25.0-35.0); MCHC 31.5 g/dL (31.0-37.0); MCV 100.4 fL (80.0-100.0); Macrocytosis Slight; Mean Platelet Volume 7.5; Monocytes # (A) 0.7 k/uL (0-1.0); Monocytes % (A) 4 %; Neutrophils # (A) 17.3 k/uL (1.3-7.7); Neutrophils % (A) 90 %; RBC 3.08 m/uL (3.80-5.40); RDW 13.9 % (11.5-15.5); WBC 19.1 k/uL (3.8-10.6); WBC (Perox) 21.03
--- NOTE | 2017-05-18 18:55 | P.CNPUL ---
History of Present Illness Consult date: 05/18/17 Requesting physician: Jun Monique Reason for consult: pleural effusion Chief complaint: Chest pain History of present illness: This is a 72-year-old female who underwent ablation by Dr. Shah and for chronic atrial fibrillation. This was done about a week ago. Sunday. Patient was discharged home from the hospital in stable condition. She was seen in the office on outpatient basis, and she was doing well. However over the last 2 days, the patient has been experiencing chest discomfort in the mid chest area described as sharp kind of discomfort worse on taking a deep breath, and worse with coughing or leaning forward. No fever no chills, no significant shortness of breath. Upon presentation, the patient was noted to have a moderate-sized pericardial effusion, and she was also noted to have bilateral pleural effusions. Her ESR was also noted to be elevated. Patient is now on colchicine, she is being treated for possible pericarditis, after ablation. Patient denies any cough, no wheezing, no fever, no chills, no hemoptysis. Denies any headaches no blurred vision no dizziness. No nausea no vomiting no abdominal pain. No dysuria frequency or urgency. Ultrasound of the chest clearly showed bilateral pleural effusions, in the meantime the patient was just started on colchicine by cardiology today. She is also on beta blockers and anticoagulation therapy, and plans are being made for possibly repeating echocardiogram in the next 24-48 hours. I reviewed the ultrasound of the chest and the CT of the chest, and felt it would be best to wait for now, may have to consider thoracentesis. Review of Systems 14 point review of system that or obtained, please refer to pertinent positives in HPI otherwise remaining systems are negative. Past Medical History Past Medical History: Atrial Fibrillation, Cancer, Fibromyalgia, Hyperlipidemia , Hypertension, Thyroid Disorder Additional Past Medical History / Comment(s): Pt recently admitted to [facility] -had cardiac ablation. Other hx: AFib/RVR/tachycardia, lymphoma diagnosed fall 2014 with with abdominal mass- last chemo completed 05/21/15 and mass is gone per pt, has periods of weakness ever since cancer diagnosis, shingles fall 2014, anemia, essential tremors, hypothyroid, uti, skin cancer with removal. History of Any Multi-Drug Resistant Organisms: None Reported Past Surgical History: Cardiac Ablation, Tonsillectomy Additional Past Surgical History / Comment(s): lymph node bx-forehead, hemorrhoids, left carotid endartectomy 2005, bilateral cataracts removed with lens implants, COLONOSCOPY, basal cell skin cancer removed from abdomin, colonoscopy Past Anesthesia/Blood Transfusion Reactions: Previous Problems w/ Anesthesia Additional Past Anesthesia/Blood Transfusion Reaction / Comment(s): Patient states that anaesthesia wears off very slowly and she is drowsy for a while. Smoking Status: Never smoker - Past Family History Sister(s) Family Medical History: Cancer Mother Family Medical History: Congestive Heart Failure (CHF), Coronary Artery Disease (CAD) Additional Family Medical History / Comment(s): Mother smoked. She at age 75 yrs. Father Family Medical History: Congestive Heart Failure (CHF), Coronary Artery Disease (CAD), Dementia Additional Family Medical History / Comment(s): Father smoked. He at age 75 yrs. Medications and Allergies Home Medications Medication Instructions Recorded Confirmed Type Raloxifene [Evista] 60 mg PO DAILY 02/27/15 05/18/17 History Cholecalciferol [Vitamin D3] 2,000 unit PO DAILY 06/26/15 05/18/17 History Cyanocobalamin [Vitamin B-12] 1,000 mcg PO DAILY 06/26/15 05/18/17 History DULoxetine HCL [Cymbalta] 90 mg PO HS 06/26/15 05/18/17 History Fiber Advance 2 cap PO DAILY 06/26/15 05/18/17 History Levothyroxine Sodium [Synthroid] 150 mcg PO DAILY 06/26/15 05/18/17 History Multivitamins, Thera [Multivitamin 1 tab PO DAILY 06/26/15 05/18/17 History (formulary)] Lisinopril [Zestril] 2.5 mg PO DAILY #30 tab 07/03/15 05/18/17 Rx Atorvastatin [Lipitor] 20 mg PO HS 10/18/15 05/18/17 History Folic Acid 1 mg PO DAILY@1200 #30 tab 10/22/15 05/18/17 Rx Magnesium Chloride [Slow-Mag] 128 mg PO DAILY 05/04/17 05/18/17 History Rivaroxaban [Xarelto] 20 mg PO HS 05/04/17 05/18/17 History Colchicine [Colcrys] 0.6 mg PO BID #6 tablet 05/09/17 05/18/17 Rx Famotidine [Pepcid] 20 mg PO DAILY #7 tablet 05/09/17 05/18/17 Rx HYDROcodone/APAP 5-325MG [[place] 1 tab PO Q8H #15 tab 05/09/17 05/18/17 Rx 5-325] Metoprolol Succinate [Toprol XL] 25 mg PO DAILY 05/18/17 05/18/17 History Allergies Allergy/AdvReac Type Severity Reaction Status Date / Time paroxetine HCl [From Paxil] Allergy Hallucinati Verified 05/18/17 08:01 ons pregabalin [From Lyrica] Allergy Hallucinati Verified 05/18/17 08:01 ons Physical Exam Vitals: Vital Signs Temp Pulse Pulse Resp BP BP Pulse Ox 05/18/17 15:00 97.3 F L 99 18 91/59 93 L 05/18/17 14:25 98.7 F 108 H 20 138/72 99 05/18/17 13:07 97.4 F L 111 H 17 119/57 96 05/18/17 12:41 116 H 22 142/62 95 05/18/17 11:54 114 H 18 126/65 93 L 05/18/17 11:06 113 H 20 143/60 90 L 05/18/17 08:49 98.2 F 114 H 22 133/60 90 L 05/18/17 07:49 98.1 F 108 H 20 108/52 95 Intake and Output 05/18/17 05/18/17 05/18/17 06:59 14:59 22:59 Intake Total 120 Balance 120 Intake: Oral 120 Other: Weight 88.451 kg Patient Weight 05/19/17 06:59 Weight 88.451 kg General: Revealed a 72-year-old female in no distress. Eye: PERRLA, EOMI, no icterus.. Ears, nose, mouth and throat: Moist mucous membranes including nasal mouth and throat no exudates noted.. Neck: No neck masses, neck is supple, no lymphadenopathy no thyromegaly. Cardiovascular: Regular rate and rhythm, no S3 gallop, no rubs appreciated. Respiratory: Diminished breath sounds bilaterally especially at the left base, no crackles or rhonchi or wheezes. Gastrointestinal: Obese, soft, nontender, no megaly, no rebound no guarding. Minimal tenderness noted in the epigastric region and in the left upper quadrant just below the left costal margin. Musculoskeletal: Normal ROM, no tenderness, Extremities: No clubbing edema or cyanosis.. Neurological: CN II-XII intact, no gross focal neurologic deficit Skin: No rashes, no ulcerations. Psychiatric: Normal affect, normal mood. Slightly anxious. Results - Laboratory Findings CBC and BMP: 05/18/17 08:40 05/18/17 08:40 PT/INR, D-dimer PT 14.2 sec (9.0-12.0) H 05/18/17 08:40 INR 1.5 (<1.2) H 05/18/17 08:40 Abnormal lab findings: Abnormal Labs 05/18/17 05/18/17 05/18/17 08:40 08:40 08:40 WBC 21.3 H RBC 3.35 L Hgb 10.5 L Hct 32.8 L Plt Count 645 H D Neutrophils # 19.9 H Lymphocytes # 0.5 L ESR PT 14.2 H INR 1.5 H Sodium 136 L Potassium 3.4 L Glucose 141 H Plasma Lactic Acid Brett Troponin I Total Protein 5.6 L Albumin 2.7 L Urine Appearance Urine Protein Ur Leukocyte Esterase Urine WBC Ur Squamous Epith Cells Hyaline Casts Urine Mucus 05/18/17 05/18/17 05/18/17 08:40 08:40 08:40 WBC RBC Hgb Hct Plt Count Neutrophils # Lymphocytes # ESR PT INR Sodium Potassium Glucose Plasma Lactic Acid Brett 2.3 H* Troponin I 0.044 H* Total Protein Albumin Urine Appearance Cloudy H Urine Protein 1+ H Ur Leukocyte Esterase Moderate H Urine WBC 27 H Ur Squamous Epith Cells 10 H Hyaline Casts 14 H Urine Mucus Occasional H 05/18/17 05/18/17 08:40 14:01 WBC RBC Hgb Hct Plt Count Neutrophils # Lymphocytes # ESR 108 H PT INR Sodium Potassium Glucose Plasma Lactic Acid Brett Troponin I 0.037 H* Total Protein Albumin Urine Appearance Urine Protein Ur Leukocyte Esterase Urine WBC Ur Squamous Epith Cells Hyaline Casts Urine Mucus - Diagnostic Findings Additional studies: Ultrasound of the chest was reviewed. CT of the chest was also reviewed. 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 2 history of atrial fibrillation and recent ablation therapy. 3 history of multiple comorbidities including fibromyalgia hypertension hyperlipidemia hypothyroidism and history of lymphoma, in remission. Recommendation: Continue treatment plan as per cardiology, if her pleural effusion does not improve with colchicine, may consider thoracentesis in the next couple of days. Time with Patient: Greater than 30
[2017-05-18 19:07] LABS: Calcium 8.9 mg/dL (8.4-10.2); Potassium 3.8 mmol/L (3.5-5.1)
[2017-05-18 21:30] LABS: Creatine Kinase MB 0.5 ng/mL (0.0-2.4)
[2017-05-18 21:33] LABS: Troponin I 0.038 ng/mL (0.000-0.034)
[2017-05-18] MEDS: COLCHICINE 0.6 MG TAB PO SCH (21:39)
[2017-05-18] MEDS: ATORVASTATIN 20 MG TAB PO SCH (21:39)
[2017-05-18] MEDS: DULoxetine HCL 30 MG CAPSULE.DR PO SCH (21:42)
--- NOTE | 2017-05-18 21:47 | HP ---
HISTORY AND PHYSICAL DATE OF SERVICE: 05/18/2017 CHIEF COMPLAINT: Chest pain. HISTORY OF PRESENT ILLNESS: This 72-year-old woman with a past medical history of multiple medical problems, including fibromyalgia, hypertension, hyperlipidemia, had a recent cardiac ablation for atrial fibrillation. Patient went home. Patient was doing fine. Patient had a followup appointment also, but subsequently patient was noted to have chest pain with bilateral chest pain, left more than the right; the pain was increasing on inspiration. The patient also had tremors, which worsened. She had shortness of breath and was concerned. The patient came to [facility] and was admitted for further evaluation and treatment. On evaluation, multiple abnormalities were noted. Troponin was 0.044, lactic acid 2.3, and the white count was elevated at 21.3. The patient was admitted for further evaluation and treatment. There is no history of any fever, rigor or chills. No history of headache, loss of consciousness, seizures. CT scan of the abdomen and pelvis was done which showed bilateral pleural effusion and moderately large pericardial effusion. A chest CT was also done which as a part of ruling out pulmonary embolism which confirmed moderate large pericardial effusion, moderate left and small right pleural effusion also. Chest ultrasound was done. Patient was seen by Dr. Solorzano as well as Dr. Galeas. Recommend a conservative line of management. PAST MEDICAL HISTORY: 1. History of recent cardiac ablation. 2. History of fibromyalgia. 3. Hypertension. 4. Hyperlipidemia. HOME MEDICATIONS: 1. Xarelto 20 mg at bedtime. 2. Evista 60 mg p.o. daily. 3. Multivitamins 1 p.o. daily. 4. Toprol XL 25 mg daily. 5. Slow-Mag 128 mg p.o. daily. 6. Zestril 2.5 mg daily. 7. Synthroid 150 mcg p.o. daily. 8. Hydrocodone 5 mg q.8 p.r.n. 9. Folic acid 1 mg daily. 10.Fiber. 11.Pepcid 20 mg p.o. daily. 12.Cymbalta 90 mg at bedtime. 13.Vitamin B12 1000 mcg p.o. daily. 14.Colcrys 0.6 p.o. b.i.d. 15.Vitamin D3 2000 daily. 16.Lipitor 20 mg at bedtime. ALLERGIES: 1. PAXIL. 2. LYRICA. FAMILY HISTORY: 1. History of CHF and CAD. SOCIAL HISTORY: No history of smoking. No history of alcohol. REVIEW OF SYSTEMS: ENT: No diminished hearing. No diminished vision. CARDIOVASCULAR SYSTEM: As mentioned earlier. RESPIRATORY SYSTEM: As mentioned earlier. GI: No nausea, vomiting. : No dysuria or retention. NERVOUS SYSTEM: As mentioned earlier. ALLERGY/IMMUNOLOGY: No asthma, hayfever. MUSCULOSKELETAL: As mentioned earlier. HEMATOLOGY/ONCOLOGY: No history of anemia. ENDOCRINE: Hypothyroidism. CONSTITUTIONAL: As mentioned earlier. DERMATOLOGY: Negative. RHEUMATOLOGY: Gout. PSYCHIATRY: As mentioned earlier. PHYSICAL EXAMINATION: Patient is alert, oriented x3. Pulse 99, blood pressure 91/59, respiration 18, temperature 97.6, pulse ox 97% on 3 L. HEENT: Conjunctivae normal. Oral mucosa moist. NECK: No jugular venous distention. No carotid bruit. No lymph node enlargement. CARDIOVASCULAR: S1, S2 muffled. No S3. No S4. RESPIRATORY: Breath sounds diminished at the bases. A few scattered rhonchi and crackles. ABDOMEN: Soft, nontender. No mass palpable. Mild diffuse distention. LEGS: No edema. No swelling. NERVOUS SYSTEM: Higher functions as mentioned earlier. Moves all 4 limbs. No focal motor or sensory deficit. LYMPHATICS: No lymph node palpable in neck, axillae or groin. SKIN: No ulcer, rash, bleeding. LABS AT THIS TIME: WBC 21.3, hemoglobin 10.5, INR 1.5. Sodium 136, potassium 3.4. Plasma lactic acid was is 2.3, improved to 1.8 after hydration. Troponin 0.044. ASSESSMENT: 1. Bilateral chest pains secondary to pleural effusion and pericardial effusion secondary to cardiac ablation, possibly secondary to pleural pericarditis. 2. Increased white count. 3. Anemia. 4. Increased MCV. 5. Increased platelets. 6. Hyponatremia. 7. Hypokalemia. 8. Increased plasma lactic acid. 9. Troponin 0.044, indeterminate. 10.History of atrial fibrillation. 11.History of fibromyalgia. 12.Hypertension. 13.Hyperlipidemia. 14.Hypothyroidism. 15.History of lymphoma, status post chemotherapy. 16.Familial tremors, history. 17.FULL CODE. RECOMMENDATIONS AND DISCUSSION: In this 72-year-old woman who presented with multiple complex medical issues, we will we will monitor the patient closely, continue the current medications, continue with symptomatic treatment. Resume the home medications. Colchicine has been initiated. Otherwise, continue to monitor along with Dr. Galeas. If the pleural effusion is not improving, recommended pleural tap. Overall prognosis extremely guarded because of multiple complex medical issues. Further recommendations to follow. A copy of this dictation is being forwarded to Dr. Bernal, who is the primary physician. MMODL / IJN: [id number] /
[2017-05-18] MEDS: DILTIAZEM 125 MG in SODIUM CHLORIDE 0.9% 100 ML IV SCH (22:11)
[2017-05-18] MEDS ORDERED: DILTIAZEM 5 MG/ML 5 ML VIAL IVP STA (23:42)
[2017-05-18] MEDS: METOPROLOL TARTRATE 25 MG TAB PO SCH (23:49)
[2017-05-19] MEDS: HYDROcodone/APAP 5-325MG 1 EACH TAB PO SCH ×3 (03:46→20:27)
[2017-05-19] MEDS: LEVOTHYROXINE 75 MCG TAB PO SCH (06:23)
[2017-05-19] MEDS: HYDROmorphone 1 MG/ML 1 ML SYRINGE IV PRN (06:34)
[2017-05-19 06:36] LABS: Basophils % (A) 0 %; CHCM 30.4; Eosinophils # (A) 0.2 k/uL (0-0.7); Eosinophils % (A) 1 %; HCT 31.5 % (34.0-46.0); HGB 9.8 gm/dL (11.4-16.0); Hypochromasia Slight; Luc # (Auto) 0.21; Luc % (Auto) 1; Lymphocytes # (A) 0.4 k/uL (1.0-4.8); Lymphocytes % (A) 2 %; MCHC 31.2 g/dL (31.0-37.0); MCV 102.6 fL (80.0-100.0); Macrocytosis Slight; Mean Platelet Volume 7.5; Monocytes # (A) 0.8 k/uL (0-1.0); Monocytes % (A) 4 %; Neutrophils # (A) 17.7 k/uL (1.3-7.7); Neutrophils % (A) 91 %; RBC 3.07 m/uL (3.80-5.40); RDW 13.9 % (11.5-15.5); WBC 19.3 k/uL (3.8-10.6); WBC (Perox) 20.11
[2017-05-19 06:55] LABS: Potassium 4.3 mmol/L (3.5-5.1)
[2017-05-19] MEDS: CYANOCOBALAMIN 500 MCG TAB PO SCH (08:07)
[2017-05-19] MEDS: FAMOTIDINE 20 MG TAB PO SCH (08:07)
[2017-05-19] MEDS: CHOLECALCIFEROL 1,000 UNIT TAB PO SCH (08:07)
[2017-05-19] MEDS: MAGNESIUM OXIDE 400 MG TAB PO SCH (08:07)
[2017-05-19] MEDS: COLCHICINE 0.6 MG TAB PO SCH ×2 (08:08→20:27)
[2017-05-19] MEDS: RALOXIFENE 60 MG TAB PO SCH (08:11)
--- NOTE | 2017-05-19 08:27 | XR ---
EXAMINATION TYPE: XR chest 1V portable DATE OF EXAM: 05/19/2017 HISTORY: bilat pleural effusions. REFERENCE: Previous study dated 10/22/2014. FINDINGS: The heart is enlarged. There are bilateral effusions. There is associated relaxation atelec tasis or consolidation. Pulmonary vasculature is normal. IMPRESSION: 1. CARDIOMEGALY. 2. BILATERAL EFFUSIONS. 3. BIBASILAR AIRSPACE DISEASE.
[2017-05-19 08:44] LABS: Glucose,Whole Blood 144 mg/dL (75-99)
[2017-05-19] MEDS ORDERED: LISINOPRIL 2.5 MG TAB PO SCH (09:00)
[2017-05-19] MEDS ORDERED: METOPROLOL SUCCINATE (ER) 25 MG TAB.ER.24H PO SCH (09:00)
[2017-05-19] MEDS ORDERED: FUROSEMIDE 10 MG/ML 4 ML VIAL IV STA (10:06)
--- NOTE | 2017-05-19 10:06 | PN ---
PROGRESS NOTE Mrs. Soares is a 72-year-old female who had an atrial fibrillation ablation recently presented with symptoms of progressive dyspnea and lower chest discomfort, was found to have significant pleural and pericardial effusion. During the night, she went into atrial fibrillation and was started on IV Cardizem. She is back in sinus mechanism at this time. She is feeling dyspneic and she is somewhat cold and clammy. She had a transient episode of hypotension that resolved with IV fluids. She had an echocardiogram yesterday that revealed moderate pericardial effusion, but she had no evidence of clear tamponade. She continues to be in sinus mechanism this morning. She continues to be on IV Cardizem, metoprolol tartrate 25 mg twice a day, Xarelto, lisinopril 2.5 mg daily, levothyroxine 0.15 mg daily, Evista and colchicine. PHYSICAL EXAMINATION: Blood pressure 127/80 with a heart rate in 90s. I am unable to evaluate the jugular venous pressure. LUNGS: With decreased breath sounds at the bases. HEART: Regular rate and rhythm. S1, S2. No rub appreciated with a soft systolic murmur, ejection type at the base. ABDOMEN: Soft, nontender. Positive bowel sounds. EXTREMITIES: No edema. LAB DATA: Lab data revealed BUN and creatinine of 22 and 1.83. Her hemoglobin 9.8, white blood cell of 19.3. Her troponin 0.037 and 0.038. Her chest x-ray is consistent with pleural effusion. IMPRESSION: 1. Pericardial and pleural effusion, most likely suggestive of a procedure related complication, most likely a small perforation especially with the patient being on anticoagulation. At this time, she has no clear tamponade, but she is showing signs of hypoperfusion with the worsening of the renal function as well as the fact that she was hypotensive earlier. The fact that she is back in sinus mechanism is a good sign. 2. Atrial fibrillation, back in sinus mechanism. 3. Worsening renal function related to hypoperfusion. 4. History of hypertension. 5. History of hyperlipidemia. RECOMMENDATION: I will stop her anticoagulation and her lisinopril. She will continue on the IV fluid as present. Repeat echocardiogram revealed moderate pericardial effusion. There is no clear evidence of tamponade, but there is what appears to be fibrinous material in the effusion. I discussed her case with Dr. Shah who is her primary hospital social worker and she will be kept n.p.o. for possible pericardiocentesis or pericardial window. I have discussed these findings with the patient and her family. KELLE / YO: [id number] / ALEXANDER
--- NOTE | 2017-05-19 10:17 | ECHOF ---
Referral Reason:pericardial effusion MEASUREMENTS -------- HEIGHT: 172.7 cm WEIGHT: 93.4 kg BP: 127/82 RVIDd: 2.8 cm (< 3.3) RAP: 5.00 mmHg RVSP: 42.91 mmHg FINDINGS -------- Sinus rhythm. Limited Study Overall left ventricular systolic function is normal with, an EF between 65 - 70 %. Mild tricuspid regurgitation present. There is mild pulmonary hypertension. There is a moderate pericardial effusion located near the left ventricle. There is no evidence of cardiac tamponade. CONCLUSIONS -------- 1. Sinus rhythm. 2. Limited Study 3. Overall left ventricular systolic function is normal with, an EF between 65 - 70 %. 4. Mild tricuspid regurgitation present. 5. There is mild pulmonary hypertension. 6. There is a moderate pericardial effusion located near the left ventricle. 7. There is no evidence of cardiac tamponade. RECORD PRESSMAN: Camille King RD
[2017-05-19] MEDS: METOPROLOL TARTRATE 25 MG TAB PO SCH ×2 (10:56→20:27)
[2017-05-19] MEDS: SODIUM CHLORIDE 0.9% 1,000 ML IV SCH ×2 (11:03→20:28)
--- NOTE | 2017-05-19 11:15 | P.PN ---
Subjective Principal diagnosis: Acute pericardial effusion and pleural effusions and left more so than right. This is a 72-year-old female who underwent ablation by Dr. Shah and for chronic atrial fibrillation. This was done about a week ago. Sunday. Patient was discharged home from the hospital in stable condition. She was seen in the office on outpatient basis, and she was doing well. However over the last 2 days, the patient has been experiencing chest discomfort in the mid chest area described as sharp kind of discomfort worse on taking a deep breath, and worse with coughing or leaning forward. No fever no chills, no significant shortness of breath. Upon presentation, the patient was noted to have a moderate-sized pericardial effusion, and she was also noted to have bilateral pleural effusions. Her ESR was also noted to be elevated. Patient is now on colchicine, she is being treated for possible pericarditis, after ablation. Patient denies any cough, no wheezing, no fever, no chills, no hemoptysis. Denies any headaches no blurred vision no dizziness. No nausea no vomiting no abdominal pain. No dysuria frequency or urgency. Ultrasound of the chest clearly showed bilateral pleural effusions, in the meantime the patient was just started on colchicine by cardiology today. She is also on beta blockers and anticoagulation therapy, and plans are being made for possibly repeating echocardiogram in the next 24-48 hours. I reviewed the ultrasound of the chest and the CT of the chest, and felt it would be best to wait for now, may have to consider thoracentesis. Patient was reevaluated today on 05/19/2017, patient is basically about the same as yesterday, her chest x-ray shows worsening left-sided pleural effusion, patient remains on heparin and she seems to be developing slight worsening of shortness of breath. Patient is also on colchicine, pain seems to be a bit improved. However I'm not certain at this point whether her pericardial effusion is getting any worse. Her renal profile seems to be worsening, and her creatinine is up to 1.83 from 1.13 yesterday. After evaluating the patient , I'm almost certain the patient will need to have eventual thoracentesis, however I'm reluctant to hold her anticoagulation therapy which was ordered by cardiology. And they may have to repeat her echocardiogram as her pericardial effusion may be getting worse. And she may need a pericardial window. Considering the worsening of her renal profile, and a bit concerned that she may be hypoperfusing her kidneys. Although her initial echocardiogram showed excellent LV function. The worsening renal function could also be related to nephrotoxicity from colchicine. Objective - Vital Signs Vital signs: Vital Signs Temp 96.4 F L 05/19/17 08:21 Pulse 97 05/19/17 08:21 Resp 20 05/19/17 08:21 BP 127/82 05/19/17 08:21 Pulse Ox 97 05/19/17 08:21 Intake & Output 05/18/17 05/19/17 05/19/17 18:59 06:59 18:59 Intake Total 120 963.0 118 Output Total 250 Balance 120 713.0 118 Weight 88.451 kg 93.5 kg Intake: IV 880 Sodium Chloride 0.9% 1, 880 000 ml @ 100 mls/hr IV . Q10H ASHELY Rx#:[id number] Intake, IV Titration 83.0 Amount Diltiazem 125 mg In 83.0 Sodium Chloride 0.9% 100 ml @ 10 MG/HR 10 mls/hr IV .[id number] ASHELY Rx#: [id number] Oral 120 118 Output: Urine 250 Other: Voiding Method Bedpan Bedpan # Voids 0 - Exam General: Revealed a 72-year-old female in no distress. Eye: PERRLA, EOMI, no icterus.. Ears, nose, mouth and throat: Moist mucous membranes including nasal mouth and throat no exudates noted.. Neck: No neck masses, neck is supple, no lymphadenopathy no thyromegaly. Cardiovascular: Distant S1 and S2, Regular rate and rhythm, no S3 gallop, no rubs appreciated. Respiratory: Diminished breath sounds bilaterally especially at the left base, no crackles or rhonchi or wheezes. Gastrointestinal: Obese, soft, nontender, no megaly, no rebound no guarding. Minimal tenderness noted in the epigastric region and in the left upper quadrant just below the left costal margin. Musculoskeletal: Normal ROM, no tenderness, Extremities: No clubbing edema or cyanosis.. Neurological: CN II-XII intact, no gross focal neurologic deficit Skin: No rashes, no ulcerations. Psychiatric: Normal affect, normal mood. Slightly anxious. - Labs CBC & Chem 7: 05/19/17 06:20 05/19/17 06:20 Labs: Abnormal Lab Results - Last 24 Hours (Table) 05/18/17 05/18/17 05/18/17 Range/Units 08:40 08:40 14:01 WBC (3.8-10.6) k/uL RBC (3.80-5.40) m/uL Hgb (11.4-16.0) gm/dL Hct (34.0-46.0) % MCV (80.0-100.0) fL Plt Count (150-450) k/uL Neutrophils # (1.3-7.7) k/uL Lymphocytes # (1.0-4.8) k/uL ESR 108 H (0-20) mm/hr BUN (7-17) mg/dL Creatinine (0.52-1.04) mg/dL Glucose (74-99) mg/dL POC Glucose (mg/dL) (75-99) mg/dL Troponin I 0.044 H* 0.037 H* (0.000-0.034) ng/mL 05/18/17 05/18/17 05/18/17 Range/Units 18:47 18:47 20:26 WBC 19.1 H (3.8-10.6) k/uL RBC 3.08 L (3.80-5.40) m/uL Hgb 9.7 L (11.4-16.0) gm/dL Hct 31.0 L (34.0-46.0) % MCV 100.4 H (80.0-100.0) fL Plt Count 605 H (150-450) k/uL Neutrophils # 17.3 H (1.3-7.7) k/uL Lymphocytes # 0.6 L (1.0-4.8) k/uL ESR (0-20) mm/hr BUN (7-17) mg/dL Creatinine 1.13 H (0.52-1.04) mg/dL Glucose 123 H (74-99) mg/dL POC Glucose (mg/dL) (75-99) mg/dL Troponin I 0.038 H* (0.000-0.034) ng/mL 05/19/17 05/19/17 05/19/17 Range/Units 06:20 06:20 08:42 WBC 19.3 H (3.8-10.6) k/uL RBC 3.07 L (3.80-5.40) m/uL Hgb 9.8 L (11.4-16.0) gm/dL Hct 31.5 L (34.0-46.0) % MCV 102.6 H (80.0-100.0) fL Plt Count 635 H (150-450) k/uL Neutrophils # 17.7 H (1.3-7.7) k/uL Lymphocytes # 0.4 L (1.0-4.8) k/uL ESR (0-20) mm/hr BUN 22 H (7-17) mg/dL Creatinine 1.83 H (0.52-1.04) mg/dL Glucose 125 H (74-99) mg/dL POC Glucose (mg/dL) 144 H (75-99) mg/dL Troponin I (0.000-0.034) ng/mL Assessment and Plan Plan: Impression: 1 acute pericardial effusion and acute bilateral pleural effusions, and 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 2 history of atrial fibrillation and recent ablation therapy. 3 history of multiple comorbidities including fibromyalgia hypertension hyperlipidemia hypothyroidism and history of lymphoma, in remission. 4 acute kidney injury could be related to her underlying cardiac condition could also be related to nephro toxicity from colchicine. Recommendation: Considering the worsening left pleural effusion, I believe that is most likely worsening pericardial effusion, I would recommend repeating echocardiogram in the next 24 hours or sooner if the patient develops any worsening hemodynamic status. If cardiology decides to hold heparin, I would definitely arrange for left-sided thoracentesis. Time with Patient: Less than 30
[2017-05-19] MEDS: FOLIC ACID 1 MG TAB PO SCH (11:23)
[2017-05-19] MEDS: MULTIVITAMINS, THERA 1 EACH TAB PO SCH (11:24)
[2017-05-19 11:29] LABS: Glucose,Whole Blood 127 mg/dL (75-99)
[2017-05-19] MEDS ORDERED: HYDROmorphone 1 MG/ML 1 ML SYRINGE IV PRN (12:42)
--- NOTE | 2017-05-19 13:07 | P.CRDCN ---
History of Present Illness History of present illness: Patient interviewed and examined. Admitted with chest discomfort and shortness of breath CT of the chest revealed bilateral pleural effusions left greater than right hand pericardial effusion 2-D echo performed showed moderate pericardial effusion at best more so over the left ventricle laterally and posteriorly than anteriorly Absence of RA collapse Admitting blood pressure 108/52 and 133/16 143/60 mmHg, afebrile, sinus tachycardia heart rate 108 114 bpm pulse ox 95% on room air, afebrile 98.1F Started on colchicine 0.6 mg twice daily along with Pepcid Overnight she had an episode of atrial fibrillation with hypertension. Atrial fibrillation self terminated and blood pressure became normal She was treated with IV Cardizem which is being discontinued she is in sinus rhythm at this time Vitals reviewed, sinus tachycardia, blood pressure 106/75 mmHg Heart sounds are soft no rub. Reduced breath sounds in the right base and egophony in the mid left, posteriorly consistent with a large pleural effusion on the left side No JVD Patient lying flat in bed mildly short of breath Pulsus paradoxus of about 15 mmm hg, however patient was on IV Cardizem at this time which it did not realize Repeat 2-D echo today shows a slight improvement in the pericardial effusion but there is a 24% variation in the mitral inflow E wave peak velocity Review of labs Elevated white count initially 21,000 now at 19,000, elevated platelet count greater than 600,000, normal electrolytes, BUN 22, creatinine 1.13 and subsequently 1.83, borderline troponins ESR greater than 100 Impression Paroxysmal atrial fibrillation very symptomatic, normal LV function normal RV function Status post cryoablation of the pulmonary veins, successful on May 07 Seen in the office earlier this week, stable with minimal discomfort localized in the left pectoral area On this admission, Delayed onset Pleuropericarditis with bilateral pleural effusions left greater than right and moderate pericardial effusion, elevated white count, very high ESR him a elevated platelet count consistent with a post ablation inflammatory response, similar to Abdon syndrome. Patient presented with worsening chest pain and shortness of breath Differential diagnosis considered including small perforation with pericardial fluid ( but this diagnosis does not explain the bilateral pleural effusion of this degree and the labs consistent with an inflammatory response) History of hypertension, hypothyroidism and lymphoma which is in remission since 2014 Acute kidney injury possibly related to the hypertension she experienced last night and will continue to follow and continue with IV hydration Plan Continue colchicine 0.6 g twice daily and I will give her an extra 1.2 mg dose today. Hold off on steroids for today Pepcid by mouth Discontinue IV Cardizem continue low-dose beta blockers, IV fluids 100 mL an hour Flecainide 100 mg twice daily for suppression of any atrial fibrillation during this acute phase of inflammation Management of pleural effusion deferred to pulmonary medicine Discussed case with CT surgery Dr. Herbert, who felt this was an inflammatory response post-ablation. He reviewed the CT films and the 2-D echo as well as the laboratory data Dr. Phillip is integration lead today and I will also speak to him later At this point I would treat with IV fluids and would not perform any surgical intervention. It'll be important for the inflammation to settle down before making a final decision on any pericardial intervention, as long as her vitals and her blood pressure remained stable. If there is any change then I will call CT surgery back from intervention/pericardial window at this point we'll treat her conservatively with medical treatment Type and screen sent Minimize opiates Xarelto is on hold DVT prophylaxis with sequential compression Past Medical History Past Medical History: Atrial Fibrillation, Cancer, Fibromyalgia, Hyperlipidemia , Hypertension, Thyroid Disorder Additional Past Medical History / Comment(s): Pt recently admitted to [facility] -had cardiac ablation. Other hx: AFib/RVR/tachycardia, lymphoma diagnosed fall 2014 with with abdominal mass- last chemo completed 05/21/15 and mass is gone per pt, has periods of weakness ever since cancer diagnosis, shingles fall 2014, anemia, essential tremors, hypothyroid, uti, skin cancer with removal. History of Any Multi-Drug Resistant Organisms: None Reported Past Surgical History: Cardiac Ablation, Tonsillectomy Additional Past Surgical History / Comment(s): lymph node bx-forehead, hemorrhoids, left carotid endartectomy 2004, bilateral cataracts removed with lens implants, COLONOSCOPY, basal cell skin cancer removed from abdomin, colonoscopy Past Anesthesia/Blood Transfusion Reactions: Previous Problems w/ Anesthesia Additional Past Anesthesia/Blood Transfusion Reaction / Comment(s): Patient states that anaesthesia wears off very slowly and she is drowsy for a while. Smoking Status: Never smoker - Past Family History Sister(s) Family Medical History: Cancer Mother Family Medical History: Congestive Heart Failure (CHF), Coronary Artery Disease (CAD) Additional Family Medical History / Comment(s): Mother smoked. She at age 75 yrs. Father Family Medical History: Congestive Heart Failure (CHF), Coronary Artery Disease (CAD), Dementia Additional Family Medical History / Comment(s): Father smoked. He at age 75 yrs. Medications and Allergies Home Medications Medication Instructions Recorded Confirmed Type RX: Raloxifene [Evista] 60 mg PO DAILY 02/27/15 05/18/17 History Fiber Advance 2 cap PO DAILY 06/26/15 05/18/17 History RX: Cholecalciferol [Vitamin D3] 2,000 unit PO DAILY 06/26/15 05/18/17 History RX: Cyanocobalamin [Vitamin B-12] 1,000 mcg PO DAILY 06/26/15 05/18/17 History RX: DULoxetine HCL [Cymbalta] 90 mg PO HS 06/26/15 05/18/17 History RX: Levothyroxine Sodium 150 mcg PO DAILY 06/26/15 05/18/17 History [Synthroid] RX: Multivitamins, Thera 1 tab PO DAILY 06/26/15 05/18/17 History [Multivitamin (formulary)] RX: Lisinopril [Zestril] 2.5 mg PO DAILY #30 tab 07/03/15 05/18/17 Rx RX: Atorvastatin [Lipitor] 20 mg PO HS 10/18/15 05/18/17 History RX: Folic Acid 1 mg PO DAILY@1200 #30 tab 10/22/15 05/18/17 Rx RX: Magnesium Chloride [Slow-Mag] 128 mg PO DAILY 05/04/17 05/18/17 History Rivaroxaban [Xarelto] 20 mg PO HS 05/04/17 05/18/17 History Famotidine [Pepcid] 20 mg PO DAILY #7 tablet 05/09/17 05/18/17 Rx HYDROcodone/APAP 5-325MG [[place] 1 tab PO Q8H #15 tab 05/09/17 05/18/17 Rx 5-325] RX: Colchicine [Colcrys] 0.6 mg PO BID #6 tablet 05/09/17 05/18/17 Rx Metoprolol Succinate [Toprol XL] 25 mg PO DAILY 05/18/17 05/18/17 History Allergies Allergy/AdvReac Type Severity Reaction Status Date / Time paroxetine HCl [From Paxil] Allergy Hallucinati Verified 05/18/17 08:01 ons pregabalin [From Lyrica] Allergy Hallucinati Verified 05/18/17 08:01 ons Physical Exam Vitals: Vital Signs Temp Pulse Pulse Resp BP BP Pulse Ox 05/19/17 12:20 97.7 F 88 18 100/64 97 05/19/17 08:21 96.4 F L 92 20 127/82 97 05/19/17 04:00 98.5 F 97 18 111/63 95 05/19/17 00:00 98.7 F 126 H 18 99/52 93 L 05/18/17 22:20 135 H 106/75 05/18/17 22:15 151 H 104/79 05/18/17 22:12 138 H 135/80 05/18/17 22:10 179 H 20 122/67 94 L 05/18/17 20:00 98.7 F 119 H 20 117/64 96 05/18/17 15:00 97.3 F L 99 18 91/59 93 L 05/18/17 14:25 98.7 F 108 H 20 138/72 99 Intake and Output 05/18/17 05/19/17 05/19/17 22:59 06:59 14:59 Intake Total 400.5 682.5 118 Output Total 250 Balance 400.5 432.5 118 Intake: IV 280 600 Sodium Chloride 0.9% 1, 280 600 000 ml @ 100 mls/hr IV . Q10H ASHELY Rx#:[id number] Intake, IV Titration 0.5 82.5 Amount Diltiazem 125 mg In 0.5 82.5 Sodium Chloride 0.9% 100 ml @ 10 MG/HR 10 mls/hr IV .[id number] ASHELY Rx#: [id number] Oral 120 118 Output: Urine 250 Other: Voiding Method Bedpan Bedpan Bedpan # Voids 0 Weight 93.5 kg Results 05/19/17 06:20 05/19/17 06:20 Cardiac Enzymes 05/18/17 05/18/17 Range/Units 14:01 20:26 CK-MB (CK-2) 0.5 0.5 (0.0-2.4) ng/mL Troponin I 0.037 H* 0.038 H* (0.000-0.034) ng/mL CBC 05/18/17 05/19/17 Range/Units 18:47 06:20 WBC 19.1 H 19.3 H (3.8-10.6) k/uL RBC 3.08 L 3.07 L (3.80-5.40) m/uL Hgb 9.7 L 9.8 L (11.4-16.0) gm/dL Hct 31.0 L 31.5 L (34.0-46.0) % Plt Count 605 H 635 H (150-450) k/uL Comprehensive Metabolic Panel 05/18/17 05/19/17 Range/Units 18:47 06:20 Sodium 137 141 (137-145) mmol/L Potassium 3.8 4.3 (3.5-5.1) mmol/L Chloride 102 105 (98-107) mmol/L Carbon Dioxide 24 25 (22-30) mmol/L BUN 16 22 H (7-17) mg/dL Creatinine 1.13 H 1.83 H (0.52-1.04) mg/dL Glucose 123 H 125 H (74-99) mg/dL Calcium 8.9 9.0 (8.4-10.2) mg/dL Current Medications Generic Name Dose Route Start Last Admin Trade Name Freq PRN Reason Stop Dose Admin Hydrocodone Bitart/Acetaminophen 1 each 05/18/17 12:00 05/19/17 11:23 [place] 5-325 PO Not Given Q8H ASHELY Atorvastatin Calcium 20 mg 05/18/17 21:00 05/18/17 21:39 Lipitor PO 20 mg HS ASHELY Administration Cholecalciferol 2,000 unit 05/19/17 09:00 05/19/17 08:07 Vitamin D3 PO 2,000 unit DAILY ASHELY Administration Colchicine 0.6 mg 05/18/17 21:00 05/19/17 08:08 Colcrys PO 0.6 mg BID ASHELY Administration Cyanocobalamin 1,000 mcg 05/19/17 09:00 05/19/17 08:07 Vitamin B-12 PO 1,000 mcg DAILY ASHELY Administration Duloxetine HCl 90 mg 05/18/17 21:00 05/18/17 21:42 Cymbalta PO 90 mg HS ASHELY Administration Famotidine 20 mg 05/19/17 09:00 05/19/17 08:07 Pepcid PO 20 mg DAILY ASHELY Administration Flecainide Acetate 100 mg 05/19/17 12:45 Tambocor PO Q12HR ASHELY Folic Acid 1 mg 05/18/17 14:00 05/19/17 11:23 Folic Acid PO Not Given DAILY@1200 [facility] Hydromorphone HCl 1 mg 05/19/17 12:42 Dilaudid IV Q6H PRN Severe Pain Sodium Chloride 1,000 mls @ 100 mls/hr 05/18/17 12:00 05/19/17 11:03 Saline 0.9% IV Not Given .Q10H [facility] Levothyroxine Sodium 150 mcg 05/19/17 06:30 05/19/17 06:23 Synthroid PO 150 mcg DAILY@0630 [facility] Administration Magnesium Oxide 400 mg 05/19/17 09:00 05/19/17 08:07 Mag-Ox PO 400 mg DAILY [facility] Administration Metoprolol Tartrate 25 mg 05/18/17 23:45 05/19/17 10:56 Lopressor PO Not Given BID [facility] Miscellaneous Information 1 each 05/18/17 08:08 Rx Info: Iv Contrast Was Given MISCELLANE 05/20/17 08:08 DAILY PRN Per Protocol Miscellaneous Information 1 each 05/18/17 08:39 Rx Info: Iv Contrast Was Given MISCELLANE 05/20/17 08:39 DAILY PRN Per Protocol Miscellaneous Information 0 each 05/18/17 12:00 No Steroids MISCELLANE DIRECTED PRN FOR INFORMATION ONLY Multivitamins 1 each 05/19/17 12:00 05/19/17 11:24 Theragran PO Not Given DAILY@1200 [facility] Naloxone HCl 0.2 mg 05/18/17 11:48 Narcan IV Q2M PRN Opioid Reversal Ondansetron HCl 4 mg 05/18/17 11:48 Zofran IVP Q8HR PRN Nausea And Vomiting Raloxifene HCl 60 mg 05/19/17 09:00 05/19/17 08:11 Evista PO 60 mg DAILY [facility] Administration Intake and Output 05/18/17 05/19/17 05/19/17 22:59 06:59 14:59 Intake Total 400.5 682.5 118 Output Total 250 Balance 400.5 432.5 118 Intake: IV 280 600 Sodium Chloride 0.9% 1, 280 600 000 ml @ 100 mls/hr IV . Q10H ASHELY Rx#:[id number] Intake, IV Titration 0.5 82.5 Amount Diltiazem 125 mg In 0.5 82.5 Sodium Chloride 0.9% 100 ml @ 10 MG/HR 10 mls/hr IV .[id number] ASHELY Rx#: [id number] Oral 120 118 Output: Urine 250 Other: Voiding Method Bedpan Bedpan Bedpan # Voids 0 Weight 93.5 kg 05/19/17 06:20 05/19/17 06:20
[2017-05-19] MEDS: COLCHICINE 0.6 MG TAB PO STA ×2 (13:18→13:22)
[2017-05-19] MEDS ORDERED: LIDOCAINE 2% INJ 20 MG/ML (20 ML MDV) ONE (14:05)
[2017-05-19] MEDS: FLECAINIDE 50 MG TAB PO SCH ×2 (14:39→22:14)
--- NOTE | 2017-05-19 16:15 | XR ---
EXAMINATION TYPE: XR chest 1V portable DATE OF EXAM: 05/19/2017 COMPARISON: 05/19/2017 INDICATION: Postthoracentesis TECHNIQUE: Single frontal view of the chest is obtained. FINDINGS: The heart size is enlarged. The pulmonary vasculature is normal. Minimal right and small left pleural effusion is present. The left pleural effusion is diminished fro m comparison. IMPRESSION: 1. Diminished left pleural effusion. 2. Residual small right pleural effusion. 3. Cardiomegaly. 4. No pneumothorax postthoracentesis
--- NOTE | 2017-05-19 16:36 | PN ---
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 The patient is on colchicine. Multiple consultants seen the patient including Cardiology, Pulmonology, Cardiothoracic Surgery is following the patient closely. There is no evidence of tamponade. The patient is still complaining of chest pain. Pulmonary is planning possible thoracocentesis. PAST MEDICAL HISTORY: Reviewed. REVIEW OF SYSTEMS: CARDIOVASCULAR SYSTEM: As mentioned earlier. RESPIRATORY SYSTEM: As mentioned earlier. GI: No nausea. : No dysuria. NERVOUS SYSTEM: As mentioned earlier. MEDICATIONS: Current medications are: 1. [place] 5 mg q.8 p.r.n. 2. Lipitor 20 mg q.h.s. 3. Vitamin D3, 2000 daily. 4. Colcrys 0.6 p.o. b.i.d. 5. Vitamin B12, 1000 daily. 6. Cymbalta 90 mg q.h.s. 7. Pepcid 20 mg daily. 8. Tambocor 00 mg b.i.d. 9. Folic acid 1 mg p.o. daily. 10.Dilaudid 1 mg q.6 p.r.n. 11.Synthroid 150 mcg daily. 12.Magnesium oxide. 13.Lopressor 25 mg p.o. b.i.d. 14.Multivitamins 1 p.o. daily. 15.Narcan 0.2 q.2 p.r.n. 16.Zofran. 17.Evista. PHYSICAL EXAM: Patient is alert and oriented x3. Pulse 92, blood pressure 127/82, respirations 20, temperature 96.4, pulse ox 97% on 15 L high-flow. HEENT: Conjunctivae normal. Oral mucosa moist. Neck is no jugular venous distention. No carotid bruit. No lymph node enlargement. CARDIOVASCULAR: S1, S2 muffled. No S3. No S4. RESPIRATORY: Breath sounds diminished at the bases. Scattered rhonchi and crackles and some egophony also present in the back suggestive of atelectasis secondary to pleural effusion. ABDOMEN: Soft, nontender. No mass palpable. LEGS: No edema, no swelling. NERVOUS SYSTEM: No focal deficits. LABS: WBC 19.3. Hemoglobin 9.8. Creatinine is 1.83. ASSESSMENT: 1. 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 No evidence of tamponade currently. 2. Increased WBC. 3. Anemia. 4. Increased MCV. 5. Increased platelets. 6. Hyponatremia. 7. Hypokalemia. 8. Increased plasma lactic acid. 9. Mild acute renal failure, possible multifactorial. 10.Troponin 0.044. indeterminate. 11.History atrial fibrillation. 12.History of fibromyalgia. 13.Hypertension. 14.Hyperlipidemia. 15.Hypothyroidism. 16.History of lymphoma, status post chemotherapy. 17.Familial tremors, history. 18.FULL CODE. RECOMMENDATIONS AND DISCUSSION: Recommend to continue current medications, continue symptomatic treatment. Otherwise continue with current medications and closely follow with Dr. Galeas regarding thoracocentesis as well as Cardiology and Cardiothoracic Surgery. Prognosis guarded because of multiple complex medical issues. See orders for details. I would also recommend repeat labs tomorrow as well. Further recommendations to follow. MMODL / IJN: [id number] /
[2017-05-19 16:47] LABS: Glucose,Whole Blood 324 mg/dL (75-99)
[2017-05-19] MEDS: DILTIAZEM 125 MG in SODIUM CHLORIDE 0.9% 100 ML IV SCH (17:12)
[2017-05-19] MEDS ORDERED: RIVAROXABAN 10 MG TAB PO SCH (18:00)
--- NOTE | 2017-05-19 19:54 | PN ---
PROGRESS NOTE OPERATIVE REPORT: Left-sided thoracentesis. PREOPERATIVE DIAGNOSIS: Large left pleural effusion. POSTOPERATIVE DIAGNOSIS: Large left pleural effusion. ANESTHESIA USED: 4 mL of 1% lidocaine. PROCEDURE: The patient was placed in a sitting upright position, the area below the left scapula was prepared in a sterile fashion and drapes were applied. The area was localized yesterday by ultrasound guidance. After adequate local anesthesia given at that tip of the scapula and 8th intercostal space, a 26-gauge needle was inserted into that space and advanced until the fluid was localized. Then a stab wound was made with a size 11 scalpel, and the thoracentesis catheter and needle were advanced into the pleural space until the fluid was obtained. Then the catheter was advanced over the needle into the pleural space and the needle was pulled out. The fluid was drained, was bloody/serosanguineous, and slightly turbid in color. Drained a total of 750 mL of fluid from the left pleural space until no more fluid could be obtained. Even with advancing and the catheter back and forth, no more fluid was obtained. The procedure was well tolerated, no evidence of any immediate complications. Chest x-ray showed no complications post thoracentesis. MMODL / IJN: [id number] /
[2017-05-19] MEDS: DULoxetine HCL 30 MG CAPSULE.DR PO SCH (20:27)
[2017-05-19] MEDS: ATORVASTATIN 20 MG TAB PO SCH (20:27)
[2017-05-19 21:16] LABS: Glucose,Whole Blood 136 mg/dL (75-99)
[2017-05-20 02:33] LABS: RBC, Body Fluid 3175 /uL
[2017-05-20] MEDS ORDERED: IPRATROPIUM-ALBUTEROL 3 ML NEB INHALATION PRN (05:21)
[2017-05-20 05:47] LABS: CH 29.9; CHCM 28.9; HCT 29.7 % (34.0-46.0); HDW 2.32; HGB 8.8 gm/dL (11.4-16.0); Hypochromasia Marked; MCH 30.9 pg (25.0-35.0); MCHC 29.8 g/dL (31.0-37.0); MCV 103.8 fL (80.0-100.0); Macrocytosis Slight; Mean Platelet Volume 8.5; RBC 2.86 m/uL (3.80-5.40); RDW 13.4 % (11.5-15.5); WBC (Perox) 16.39
[2017-05-20 05:56] LABS: Calcium 8.8 mg/dL (8.4-10.2); Potassium 4.3 mmol/L (3.5-5.1)
[2017-05-20] MEDS: SODIUM CHLORIDE 0.9% 1,000 ML IV SCH (05:56)
[2017-05-20 06:21] LABS: Add Differential Manual Differential
[2017-05-20 06:23] LABS: Manual Review Performed; Nucleated Red Blood Cells 0 /100 WBC (0-0); Total Cells Counted 100
[2017-05-20 06:24] LABS: Polychromasia Present
[2017-05-20] MEDS: HYDROcodone/APAP 5-325MG 1 EACH TAB PO SCH ×2 (07:03→08:29)
[2017-05-20] MEDS: LEVOTHYROXINE 75 MCG TAB PO SCH (07:05)
--- NOTE | 2017-05-20 07:20 | XR ---
EXAMINATION TYPE: XR chest 1V portable DATE OF EXAM: 05/20/2017 HISTORY: bilat effusions. REFERENCE: Previous study dated 05/19/2017. FINDINGS: There are bilateral effusions, greater on the left than the right. There is vascular conges tion and pulmonary edema. The heart is mildly enlarged. IMPRESSION: WORSENING CHANGES OF HEART FAILURE.
[2017-05-20] MEDS: IPRATROPIUM-ALBUTEROL 3 ML NEB INHALATION SCH ×4 (08:15→20:24)
[2017-05-20] MEDS: COLCHICINE 0.6 MG TAB PO SCH (08:29)
[2017-05-20] MEDS: RALOXIFENE 60 MG TAB PO SCH (08:29)
[2017-05-20] MEDS: MAGNESIUM OXIDE 400 MG TAB PO SCH (08:29)
[2017-05-20] MEDS: CHOLECALCIFEROL 1,000 UNIT TAB PO SCH (08:29)
[2017-05-20] MEDS: FLECAINIDE 50 MG TAB PO SCH ×2 (08:29→21:18)
[2017-05-20] MEDS: CYANOCOBALAMIN 500 MCG TAB PO SCH (08:29)
[2017-05-20] MEDS: FAMOTIDINE 20 MG TAB PO SCH (08:29)
[2017-05-20] MEDS: METOPROLOL TARTRATE 25 MG TAB PO SCH ×2 (08:29→21:19)
--- NOTE | 2017-05-20 09:44 | P.GSCN ---
<Gabriella Choi - Last Filed: 05/20/17 09:24> History of Present Illness Consult date: 05/19/17 Reason for Consult: Pericardial effusion, treatment recommendations Requesting physician: Lui Shah History of present illness: This 72-year-old female presented to the emergency room on May 18 with complaints of chest pain primarily located beneath her rib cage. She did state the pain radiated her abdomen and was constant, she denied any fever or chills , shortness of breath, back pain, nausea, or vomiting. Of note she is status post ablation from May 07. CTs done in the emergency room demonstrated bilateral pleural effusions as well as a moderately large pericardial effusion. Echocardiogram performed on May 18 demonstrated a moderate pericardial effusion near the left ventricle with hyperdynamic ejection fraction greater than 70%, moderate pulmonary hypertension, and mild tricuspid regurgitation. She was admitted to [address] [place] [address] for workup. Repeat echocardiogram on May 19 demonstrated ejection fraction 65-70%, mild pulmonary hypertension , and continued moderate pericardial effusion near the left ventricle without tamponade physiology. She did have an episode of paroxysmal atrial fibrillation which did resolve with Cardizem. She had a left thoracentesis performed by Dr. Galeas on May 19 evacuating 750 mL pleural fluid. Colchicine was initiated per cardiology. Thoracic surgery was consulted regarding recommendations of conservative medical treatment versus pericardial drain/pericardial window. Dr. Herbert reviewed her CAT scan films and echo on May 19, felt this was an inflammatory response post-ablation. Review of Systems 14 point review systems was completed and was negative except as noted. - Cardiovascular Reports as per HPI, Reports chest pain - Respiratory Reports as per HPI - Gastrointestinal Reports as per HPI, Reports abdominal pain - Psychiatric Psychiatric Comment(s): States she is a little confused Past Medical History Past Medical History: Atrial Fibrillation, Cancer, Fibromyalgia, Hyperlipidemia , Hypertension, Thyroid Disorder Additional Past Medical History / Comment(s): Pt recently admitted to [facility] -had cardiac ablation. Other hx: AFib/RVR/tachycardia, lymphoma diagnosed fall 2014 with with abdominal mass- last chemo completed 05/21/15 and mass is gone per pt, has periods of weakness ever since cancer diagnosis, shingles fall 2014, anemia, essential tremors, hypothyroid, uti, skin cancer with removal. History of Any Multi-Drug Resistant Organisms: None Reported Past Surgical History: Cardiac Ablation, Tonsillectomy Additional Past Surgical History / Comment(s): lymph node bx-forehead, hemorrhoids, left carotid endartectomy 2005, bilateral cataracts removed with lens implants, COLONOSCOPY, basal cell skin cancer removed from abdomin, colonoscopy Past Anesthesia/Blood Transfusion Reactions: Previous Problems w/ Anesthesia Additional Past Anesthesia/Blood Transfusion Reaction / Comm: Patient states that anaesthesia wears off very slowly and she is drowsy for a while. Smoking Status: Never smoker - Past Family History Sister(s) Family Medical History: Cancer Mother Family Medical History: Congestive Heart Failure (CHF), Coronary Artery Disease (CAD) Additional Family Medical History / Comment(s): Mother smoked. She at age 75 yrs. Father Family Medical History: Congestive Heart Failure (CHF), Coronary Artery Disease (CAD), Dementia Additional Family Medical History / Comment(s): Father smoked. He at age 75 yrs. Medications and Allergies Home Medications Medication Instructions Recorded Confirmed Type Raloxifene [Evista] 60 mg PO DAILY 02/27/15 05/18/17 History Cholecalciferol [Vitamin D3] 2,000 unit PO DAILY 06/26/15 05/18/17 History Cyanocobalamin [Vitamin B-12] 1,000 mcg PO DAILY 06/26/15 05/18/17 History DULoxetine HCL [Cymbalta] 90 mg PO HS 06/26/15 05/18/17 History Fiber Advance 2 cap PO DAILY 06/26/15 05/18/17 History Levothyroxine Sodium [Synthroid] 150 mcg PO DAILY 06/26/15 05/18/17 History Multivitamins, Thera [Multivitamin 1 tab PO DAILY 06/26/15 05/18/17 History (formulary)] Lisinopril [Zestril] 2.5 mg PO DAILY #30 tab 07/03/15 05/18/17 Rx Atorvastatin [Lipitor] 20 mg PO HS 10/18/15 05/18/17 History Folic Acid 1 mg PO DAILY@1200 #30 tab 10/22/15 05/18/17 Rx Magnesium Chloride [Slow-Mag] 128 mg PO DAILY 05/04/17 05/18/17 History Rivaroxaban [Xarelto] 20 mg PO HS 05/04/17 05/18/17 History Colchicine [Colcrys] 0.6 mg PO BID #6 tablet 05/09/17 05/18/17 Rx Famotidine [Pepcid] 20 mg PO DAILY #7 tablet 05/09/17 05/18/17 Rx HYDROcodone/APAP 5-325MG [[place] 1 tab PO Q8H #15 tab 05/09/17 05/18/17 Rx 5-325] Metoprolol Succinate [Toprol XL] 25 mg PO DAILY 05/18/17 05/18/17 History Allergies Allergy/AdvReac Type Severity Reaction Status Date / Time paroxetine HCl [From Paxil] Allergy Hallucinati Verified 05/18/17 08:01 ons pregabalin [From Lyrica] Allergy Hallucinati Verified 05/18/17 08:01 ons Surgical - Exam Vital Signs Temp Pulse Resp BP Pulse Ox 98.1 F 108 H 20 108/52 95 05/18/17 07:49 05/18/17 07:49 05/18/17 07:49 05/18/17 07:49 05/18/17 07:49 - General well developed, well nourished, moderate pain, obese - Eyes PERRL, normal ocular movement - ENT no hearing loss - Neck no masses, trachea midline - Respiratory Lungs sounds diminished bilaterally with expiratory wheezes present. Respirations even, nonlabored. Currently on 2 L nasal cannula with oxygen saturation 92%. Only able to achieve 500 mL on her incentive spirometry. - Cardiovascular S1, S2 present. Regular rate and rhythm currently sinus rhythm on telemetry. Palpable radial, DP, PT pulses bilaterally. Trace bilateral lower extremity edema present. - Abdomen Abdomen slightly distended. Active bowel sounds present 4 quadrants. Abdomen: soft, non tender - Genitourinary Deferred - Rectum Deferred - Integumentary no rash, no growths - Neurologic normal sensation - Psychiatric oriented to time, oriented to person, oriented to place, speech is normal Results - Labs 05/20/17 05:32 05/20/17 05:32 Abnormal Lab Results - Last 24 Hours (Table) 05/19/17 05/19/17 05/19/17 Range/Units 11:27 16:24 21:06 WBC (3.8-10.6) k/uL RBC (3.80-5.40) m/uL Hgb (11.4-16.0) gm/dL Hct (34.0-46.0) % MCV (80.0-100.0) fL MCHC (31.0-37.0) g/dL Plt Count (150-450) k/uL Neutrophils # (Manual) (1.3-7.7) k/uL Lymphocytes # (Manual) (1.0-4.8) k/uL Sodium (137-145) mmol/L BUN (7-17) mg/dL Creatinine (0.52-1.04) mg/dL Glucose (74-99) mg/dL POC Glucose (mg/dL) 127 H 324 H 136 H (75-99) mg/dL 05/20/17 05/20/17 Range/Units 05:32 05:32 WBC 15.0 H (3.8-10.6) k/uL RBC 2.86 L (3.80-5.40) m/uL Hgb 8.8 L (11.4-16.0) gm/dL Hct 29.7 L (34.0-46.0) % MCV 103.8 H (80.0-100.0) fL MCHC 29.8 L (31.0-37.0) g/dL Plt Count 659 H (150-450) k/uL Neutrophils # (Manual) 13.65 H (1.3-7.7) k/uL Lymphocytes # (Manual) 0.30 L (1.0-4.8) k/uL Sodium 136 L (137-145) mmol/L BUN 22 H (7-17) mg/dL Creatinine 1.20 H (0.52-1.04) mg/dL Glucose 113 H (74-99) mg/dL POC Glucose (mg/dL) (75-99) mg/dL Microbiology - Last 24 Hours (Table) 05/19/17 04:30 Urine Culture - Preliminary Urine,Voided 05/18/17 08:40 Blood Culture - Preliminary Blood No Growth after 24 hours Diabetes panel 05/20/17 Range/Units 05:32 Sodium 136 L (137-145) mmol/L Potassium 4.3 (3.5-5.1) mmol/L Chloride 107 (98-107) mmol/L Carbon Dioxide 22 (22-30) mmol/L BUN 22 H (7-17) mg/dL Creatinine 1.20 H (0.52-1.04) mg/dL Glucose 113 H (74-99) mg/dL Calcium 8.8 (8.4-10.2) mg/dL Calcium panel 05/20/17 Range/Units 05:32 Calcium 8.8 (8.4-10.2) mg/dL Pituitary panel 05/20/17 Range/Units 05:32 Sodium 136 L (137-145) mmol/L Potassium 4.3 (3.5-5.1) mmol/L Chloride 107 (98-107) mmol/L Carbon Dioxide 22 (22-30) mmol/L BUN 22 H (7-17) mg/dL Creatinine 1.20 H (0.52-1.04) mg/dL Glucose 113 H (74-99) mg/dL Calcium 8.8 (8.4-10.2) mg/dL Adrenal panel 05/20/17 Range/Units 05:32 Sodium 136 L (137-145) mmol/L Potassium 4.3 (3.5-5.1) mmol/L Chloride 107 (98-107) mmol/L Carbon Dioxide 22 (22-30) mmol/L BUN 22 H (7-17) mg/dL Creatinine 1.20 H (0.52-1.04) mg/dL Glucose 113 H (74-99) mg/dL Calcium 8.8 (8.4-10.2) mg/dL - Imaging Chest x-ray: report reviewed, image reviewed CT scan - abdomen: report reviewed, image reviewed CT scan - chest: report reviewed, image reviewed CT scan - pelvis: report reviewed, image reviewed EKG: image reviewed Additional studies: Echo results from May 18 and May 19 reviewed. Assessment and Plan (1) Status post thoracentesis Status: Acute (2) Status post ablation of atrial fibrillation Status: Acute (3) Dehydration Status: Acute (4) Pericardial effusion Status: Acute (5) Pleural effusion Status: Acute (6) HTN (hypertension) Status: Acute (7) Systolic CHF, acute on chronic Status: Acute Plan: The patient was seen and examined at the bedside. Chart/diagnostics were reviewed. Case was discussed between Dr. Shah and Dr. Herbert on May 19. Plan at that time was to treat medically as long as patient is stable. Patient appears in minimal to no distress at this time. Currently sinus rhythm. Vital signs are stable. Case discussed with Dr. Palmer. Will discuss with Dr. Phillip and further treatment recommendations will be forthcoming. Thank you Dr. Shah for this consult. We look forward to working with you in the care of your patient. Time with Patient: Greater than 30 <Vimal Phillip - Last Filed: 05/20/17 12:12> Surgical - Exam Vital Signs Temp Pulse Resp BP Pulse Ox 98.1 F 108 H 20 108/52 95 05/18/17 07:49 05/18/17 07:49 05/18/17 07:49 05/18/17 07:49 05/18/17 07:49 Results - Labs 05/20/17 05:32 05/20/17 05:32 Abnormal Lab Results - Last 24 Hours (Table) 05/19/17 05/19/17 05/20/17 Range/Units 16:24 21:06 05:32 WBC 15.0 H (3.8-10.6) k/uL RBC 2.86 L (3.80-5.40) m/uL Hgb 8.8 L (11.4-16.0) gm/dL Hct 29.7 L (34.0-46.0) % MCV 103.8 H (80.0-100.0) fL MCHC 29.8 L (31.0-37.0) g/dL Plt Count 659 H (150-450) k/uL Neutrophils # (Manual) 13.65 H (1.3-7.7) k/uL Lymphocytes # (Manual) 0.30 L (1.0-4.8) k/uL Sodium (137-145) mmol/L BUN (7-17) mg/dL Creatinine (0.52-1.04) mg/dL Glucose (74-99) mg/dL POC Glucose (mg/dL) 324 H 136 H (75-99) mg/dL 05/20/17 Range/Units 05:32 WBC (3.8-10.6) k/uL RBC (3.80-5.40) m/uL Hgb (11.4-16.0) gm/dL Hct (34.0-46.0) % MCV (80.0-100.0) fL MCHC (31.0-37.0) g/dL Plt Count (150-450) k/uL Neutrophils # (Manual) (1.3-7.7) k/uL Lymphocytes # (Manual) (1.0-4.8) k/uL Sodium 136 L (137-145) mmol/L BUN 22 H (7-17) mg/dL Creatinine 1.20 H (0.52-1.04) mg/dL Glucose 113 H (74-99) mg/dL POC Glucose (mg/dL) (75-99) mg/dL Microbiology - Last 24 Hours (Table) 05/18/17 08:40 Blood Culture - Preliminary Blood No Growth after 48 hours 05/19/17 15:20 Body Fluid Culture - Preliminary Pleural Fluid 05/19/17 15:20 Acid Fast Bacilli Culture - Preliminary Pleural Fluid 05/19/17 04:30 Urine Culture - Preliminary Urine,Voided Diabetes panel 05/20/17 Range/Units 05:32 Sodium 136 L (137-145) mmol/L Potassium 4.3 (3.5-5.1) mmol/L Chloride 107 (98-107) mmol/L Carbon Dioxide 22 (22-30) mmol/L BUN 22 H (7-17) mg/dL Creatinine 1.20 H (0.52-1.04) mg/dL Glucose 113 H (74-99) mg/dL Calcium 8.8 (8.4-10.2) mg/dL Calcium panel 05/20/17 Range/Units 05:32 Calcium 8.8 (8.4-10.2) mg/dL Pituitary panel 05/20/17 Range/Units 05:32 Sodium 136 L (137-145) mmol/L Potassium 4.3 (3.5-5.1) mmol/L Chloride 107 (98-107) mmol/L Carbon Dioxide 22 (22-30) mmol/L BUN 22 H (7-17) mg/dL Creatinine 1.20 H (0.52-1.04) mg/dL Glucose 113 H (74-99) mg/dL Calcium 8.8 (8.4-10.2) mg/dL Adrenal panel 05/20/17 Range/Units 05:32 Sodium 136 L (137-145) mmol/L Potassium 4.3 (3.5-5.1) mmol/L Chloride 107 (98-107) mmol/L Carbon Dioxide 22 (22-30) mmol/L BUN 22 H (7-17) mg/dL Creatinine 1.20 H (0.52-1.04) mg/dL Glucose 113 H (74-99) mg/dL Calcium 8.8 (8.4-10.2) mg/dL Assessment and Plan Plan: The patient was seen and examined. I agree with the above assessment and plan. Patient was admitted to the hospital a few days ago following an ablation procedure performed by Dr. Shah. Her echocardiogram reveals a moderate pericardial effusion with no evidence of tamponade. She remains hemodynamically stable. At this point we will continue with observation. She will likely get a repeat echocardiogram in the morning. We will continue to follow along with you and intervene if pericardial window is indicated.
--- NOTE | 2017-05-20 10:19 | PN ---
PROGRESS NOTE Mrs. Soares a 72-year-old female who presented with symptoms of dyspnea and chest discomfort, underwent a left thoracentesis yesterday by Dr. Galeas and had blood-tinged fluid. She is feeling slightly better today. She still has some dyspnea. No significant chest pain. She continues to be in sinus mechanism. She has no dizziness or palpitation and no syncope. She has no nausea. Her blood pressure has been under reasonable control. She continues to be on the Lipitor 20 mg daily, colchicine 0.6 mg twice a day, Pepcid 20 mg daily, flecainide 100 mg twice a day, metoprolol tartrate 25 mg twice a day and [place]. PHYSICAL EXAMINATION: Blood pressure running in the 130s to 140s with a heart in 90. LUNGS: With decreased breath sounds in both bases. HEART: Regular rate and rhythm. S1, S2. No rub or gallop appreciated. ABDOMEN: Soft, nontender. EXTREMITIES: No edema. LAB DATA: Revealed a hemoglobin of 8.8, on the she [place] 10[place] [address]. Her BUN and creatinine 22 and 1.2, that has improved and her potassium 4.3. The fluid appearance was bloody according to the analysis. IMPRESSION: 1. Pericardial and pleural effusion. The finding could be representing a small perforations that has sealed. At this time there is no evidence of tamponade physiology. She seems to be stabilizing. 2. Atrial fibrillation status post ablation back in sinus mechanism at this time. 3. Renal failure, improved. Those findings are suggestive of hypoperfusion that improved. 4. Anemia. RECOMMENDATION: From the cardiac standpoint, we will continue clinical observation. Her anticoagulation is on hold. I will obtain a repeat echocardiogram and renal function tomorrow and if there is worsening in the pericardial fluid or change in her hemodynamic then a pericardial window to be needed. I have discussed those findings with the patient and her family. MMODL / IJN: [id number] /
[2017-05-20 10:59] LABS: LDH, Body Fluid Source Pleural Fluid; T. Protein, Body Fluid Source Pleural Fluid; Total Protein, Body Fluid 4000 mg/dL
--- NOTE | 2017-05-20 11:07 | P.PN ---
Subjective Principal diagnosis: Acute pericardial effusion and pleural effusions and left more so than right. This is a 72-year-old female who underwent ablation by Dr. Shah and for chronic atrial fibrillation. This was done about a week ago. Sunday. Patient was discharged home from the hospital in stable condition. She was seen in the office on outpatient basis, and she was doing well. However over the last 2 days, the patient has been experiencing chest discomfort in the mid chest area described as sharp kind of discomfort worse on taking a deep breath, and worse with coughing or leaning forward. No fever no chills, no significant shortness of breath. Upon presentation, the patient was noted to have a moderate-sized pericardial effusion, and she was also noted to have bilateral pleural effusions. Her ESR was also noted to be elevated. Patient is now on colchicine, she is being treated for possible pericarditis, after ablation. Patient denies any cough, no wheezing, no fever, no chills, no hemoptysis. Denies any headaches no blurred vision no dizziness. No nausea no vomiting no abdominal pain. No dysuria frequency or urgency. Ultrasound of the chest clearly showed bilateral pleural effusions, in the meantime the patient was just started on colchicine by cardiology today. She is also on beta blockers and anticoagulation therapy, and plans are being made for possibly repeating echocardiogram in the next 24-48 hours. I reviewed the ultrasound of the chest and the CT of the chest, and felt it would be best to wait for now, may have to consider thoracentesis. Patient was reevaluated today on 05/19/2017, patient is basically about the same as yesterday, her chest x-ray shows worsening left-sided pleural effusion, patient remains on heparin and she seems to be developing slight worsening of shortness of breath. Patient is also on colchicine, pain seems to be a bit improved. However I'm not certain at this point whether her pericardial effusion is getting any worse. Her renal profile seems to be worsening, and her creatinine is up to 1.83 from 1.13 yesterday. After evaluating the patient , I'm almost certain the patient will need to have eventual thoracentesis, however I'm reluctant to hold her anticoagulation therapy which was ordered by cardiology. And they may have to repeat her echocardiogram as her pericardial effusion may be getting worse. And she may need a pericardial window. Considering the worsening of her renal profile, and a bit concerned that she may be hypoperfusing her kidneys. Although her initial echocardiogram showed excellent LV function. The worsening renal function could also be related to nephrotoxicity from colchicine. Patient was reevaluated today on 05/20/2017, she is doing better, she had her thoracentesis done yesterday, and 750 mL of fluid was drained, slightly serosanguineous, no postoperative complications. Patient is feeling less short of breath today, and her kidney functioning seems to be improving. I discussed her condition with Dr. Palmer, and we both felt that this patient had more of pre-temp without physiology to explain the whole picture of pericardial effusion , pleural effusion, and worsening renal perfusion. This is more of a possible perforation than actual Abdon's syndrome. Labs were reviewed today, her renal functioning is much better creatinine is down to 1.20. CBC is about the same, WBC count is 15.0 hemoglobin is 8.8. Chest x-ray was also reviewed, there is minimal left basilar atelectasis, doubt any effusion since I have drained it completely yesterday. Objective - Vital Signs Vital signs: Vital Signs Temp 97.7 F 05/20/17 08:32 Pulse 93 05/20/17 08:32 Resp 20 05/20/17 08:32 BP 149/66 05/20/17 08:32 Pulse Ox 92 L 05/20/17 08:32 Intake & Output 05/19/17 05/20/17 05/20/17 18:59 06:59 18:59 Intake Total 498 200 Output Total 800 200 Balance -302 -200 200 Weight 96 kg Intake: Oral 498 200 Output: Urine 800 200 Other: Voiding Method Bedpan Bedpan Bedpan # Voids 0 1 2 - Exam General: Revealed a 72-year-old female in no distress. Eye: PERRLA, EOMI, no icterus.. Ears, nose, mouth and throat: Moist mucous membranes including nasal mouth and throat no exudates noted.. Neck: No neck masses, neck is supple, no lymphadenopathy no thyromegaly. Cardiovascular: Distant S1 and S2, Regular rate and rhythm, no S3 gallop, no rubs appreciated. Respiratory: Good breath sounds bilaterally, slightly diminished at the left base, but much improved compared to baseline. No chest wall tenderness. No crackles nor rhonchi no wheezes. Gastrointestinal: Obese, soft, nontender, no megaly, no rebound no guarding. Minimal tenderness noted in the epigastric region and in the left upper quadrant just below the left costal margin. Musculoskeletal: Normal ROM, no tenderness, Extremities: No clubbing edema or cyanosis.. Neurological: CN II-XII intact, no gross focal neurologic deficit Skin: No rashes, no ulcerations. Psychiatric: Normal affect, normal mood. Slightly anxious. - Labs CBC & Chem 7: 05/20/17 05:32 05/20/17 05:32 Labs: Abnormal Lab Results - Last 24 Hours (Table) 05/19/17 05/19/17 05/19/17 Range/Units 11:27 16:24 21:06 WBC (3.8-10.6) k/uL RBC (3.80-5.40) m/uL Hgb (11.4-16.0) gm/dL Hct (34.0-46.0) % MCV (80.0-100.0) fL MCHC (31.0-37.0) g/dL Plt Count (150-450) k/uL Neutrophils # (Manual) (1.3-7.7) k/uL Lymphocytes # (Manual) (1.0-4.8) k/uL Sodium (137-145) mmol/L BUN (7-17) mg/dL Creatinine (0.52-1.04) mg/dL Glucose (74-99) mg/dL POC Glucose (mg/dL) 127 H 324 H 136 H (75-99) mg/dL 05/20/17 05/20/17 Range/Units 05:32 05:32 WBC 15.0 H (3.8-10.6) k/uL RBC 2.86 L (3.80-5.40) m/uL Hgb 8.8 L (11.4-16.0) gm/dL Hct 29.7 L (34.0-46.0) % MCV 103.8 H (80.0-100.0) fL MCHC 29.8 L (31.0-37.0) g/dL Plt Count 659 H (150-450) k/uL Neutrophils # (Manual) 13.65 H (1.3-7.7) k/uL Lymphocytes # (Manual) 0.30 L (1.0-4.8) k/uL Sodium 136 L (137-145) mmol/L BUN 22 H (7-17) mg/dL Creatinine 1.20 H (0.52-1.04) mg/dL Glucose 113 H (74-99) mg/dL POC Glucose (mg/dL) (75-99) mg/dL Microbiology - Last 24 Hours (Table) 05/19/17 15:20 Body Fluid Culture - Preliminary Pleural Fluid 05/19/17 15:20 Acid Fast Bacilli Culture - Preliminary Pleural Fluid 05/19/17 04:30 Urine Culture - Preliminary Urine,Voided 05/18/17 08:40 Blood Culture - Preliminary Blood No Growth after 24 hours Assessment and Plan Plan: Impression: 1 acute pericardial effusion and acute bilateral pleural effusions, most likely related to her recent ablation and possible perforation. Abdon syndrome was in the differential, but now it's felt to be less likely. 2 history of atrial fibrillation and recent ablation therapy. 3 history of multiple comorbidities including fibromyalgia hypertension hyperlipidemia hypothyroidism and history of lymphoma, in remission. 4 acute kidney injury could be related poor cardiac perfusion to the kidneys, and pre temponade presentation. Significantly improved today. Recommendation: Continue present treatment plan, no pulmonary issues today to be addressed, discussed her condition with the hotel room attendant, and plans are being made for repeat echocardiogram to address the pericardial effusion again tomorrow. Time with Patient: Less than 30
[2017-05-20] MEDS: FOLIC ACID 1 MG TAB PO SCH (11:52)
[2017-05-20] MEDS: MULTIVITAMINS, THERA 1 EACH TAB PO SCH (11:52)
[2017-05-20] MEDS ORDERED: HYDROmorphone 0.5 MG/0.5 ML SYRINGE IVP PRN (13:31)
[2017-05-20] MEDS ORDERED: HYDROcodone/APAP 5-325MG 1 EACH TAB PO PRN (13:31)
[2017-05-20] MEDS ORDERED: FUROSEMIDE 40 MG TAB PO STA (13:51)
--- NOTE | 2017-05-20 13:53 | P.PN ---
Subjective Patient is doing a lot better today, remains afebrile. Pulse rate in the 80s and 90s, sinus rhythm Set up in a chair. Systolic blood pressure 110 mmHg, no JVD, breath sounds were improved Pulses paradoxus of 5 mm only today which represents an improvement since yesterday. It was 15 mmHg yesterday Yesterday she underwent thoracentesis on the left side and about 700 mL of thick fluid was removed., Obviously inflammatory not a transudate. No pericardial rub at this point Inflammatory markers have improved. White count is 15,000. Neutrophil count 13 ,000. BUN and creatinine have also improved after receiving IV hydration Pleural fluid was orange and serosanguineous Her was by her bedside and I explained to him that this was a post ablation inflammatory reaction of the pleura and pericardium, inflammatory, effusive polyserositis resulting in her symptoms She improved after the thoracentesis which was needed because the left pleural fluid was quite substantial in volume Today the pericardial fluid clinically seems to have improved because of reduction in the pulses paradoxus Labs are reviewed. Blood culture, no growth after 48 hours Impression Post cryoablation (of the pulmonary veins) Inflammatory, effusive polyserositis with a significant left-sided pleural effusion, smaller right-sided pleural effusion and moderate pericardial effusion following ablation with elevated inflammatory markers such as elevated ESR of 106, elevated white count and elevated platelets This cannot be explained by cardiac perforation. The left-sided pleural fluid was quite substantial and exudative in nature, requiring thoracentesis and cannot be explained by a cardiac perforation Pleural fluid was serosanguineous with nucleated cells 7838 and RBCs 3175, consistent with inflammation/exudative nature Clinically her pulses paradoxus has reduced from 15 mmHg about 5 mmHg today. Inflammatory markers are improving Suggest Up in a chair Sit by the age of the bed Reduce colchicine to once daily Continue Pepcid Stop IV fluids Oral fluids ad gagan. Regular meals Tomorrow if she is better I will restart her anticoagulation after speaking to pulmonology Objective - Vital Signs Vital signs: Vital Signs Temp 97.8 F 05/20/17 11:28 Pulse 80 05/20/17 11:31 Resp 20 05/20/17 11:28 BP 110/62 05/20/17 11:28 Pulse Ox 97 05/20/17 11:28 Intake & Output 05/19/17 05/20/17 05/20/17 18:59 06:59 18:59 Intake Total 498 200 Output Total 800 200 Balance -302 -200 200 Weight 96 kg Intake: Oral 498 200 Output: Urine 800 200 Other: Voiding Method Bedpan Bedpan Bedpan # Voids 0 1 2 - Labs CBC & Chem 7: 05/20/17 05:32 05/20/17 05:32 Labs: Abnormal Lab Results - Last 24 Hours (Table) 05/19/17 05/19/17 05/20/17 Range/Units 16:24 21:06 05:32 WBC 15.0 H (3.8-10.6) k/uL RBC 2.86 L (3.80-5.40) m/uL Hgb 8.8 L (11.4-16.0) gm/dL Hct 29.7 L (34.0-46.0) % MCV 103.8 H (80.0-100.0) fL MCHC 29.8 L (31.0-37.0) g/dL Plt Count 659 H (150-450) k/uL Neutrophils # (Manual) 13.65 H (1.3-7.7) k/uL Lymphocytes # (Manual) 0.30 L (1.0-4.8) k/uL Sodium (137-145) mmol/L BUN (7-17) mg/dL Creatinine (0.52-1.04) mg/dL Glucose (74-99) mg/dL POC Glucose (mg/dL) 324 H 136 H (75-99) mg/dL 05/20/17 Range/Units 05:32 WBC (3.8-10.6) k/uL RBC (3.80-5.40) m/uL Hgb (11.4-16.0) gm/dL Hct (34.0-46.0) % MCV (80.0-100.0) fL MCHC (31.0-37.0) g/dL Plt Count (150-450) k/uL Neutrophils # (Manual) (1.3-7.7) k/uL Lymphocytes # (Manual) (1.0-4.8) k/uL Sodium 136 L (137-145) mmol/L BUN 22 H (7-17) mg/dL Creatinine 1.20 H (0.52-1.04) mg/dL Glucose 113 H (74-99) mg/dL POC Glucose (mg/dL) (75-99) mg/dL Microbiology - Last 24 Hours (Table) 05/19/17 04:30 Urine Culture - Final Urine,Voided 05/18/17 08:40 Blood Culture - Preliminary Blood No Growth after 48 hours 05/19/17 15:20 Body Fluid Culture - Preliminary Pleural Fluid 05/19/17 15:20 Acid Fast Bacilli Culture - Preliminary Pleural Fluid
[2017-05-20 14:22] LABS: Cholesterol,BF Source Pleural Fluid; Glucose, BF Source Pleural Fluid
[2017-05-20] MEDS: DULoxetine HCL 30 MG CAPSULE.DR PO SCH (21:18)
[2017-05-20] MEDS: ATORVASTATIN 20 MG TAB PO SCH (21:18)
[2017-05-21] MEDS: HYDROcodone/APAP 5-325MG 1 EACH TAB PO SCH (04:56)
[2017-05-21] MEDS: LEVOTHYROXINE 75 MCG TAB PO SCH (06:08)
[2017-05-21 06:27] LABS: Basophils % (A) 0 %; CH 30.1; CHCM 30.1; Eosinophils # (A) 0.3 k/uL (0-0.7); Eosinophils % (A) 3 %; HCT 29.5 % (34.0-46.0); HDW 2.47; HGB 8.9 gm/dL (11.4-16.0); Hypochromasia Moderate; Luc # (Auto) 0.14; Luc % (Auto) 1; Lymphocytes # (A) 0.4 k/uL (1.0-4.8); Lymphocytes % (A) 4 %; MCH 30.2 pg (25.0-35.0); MCHC 30.1 g/dL (31.0-37.0); MCV 100.2 fL (80.0-100.0); Monocytes # (A) 0.4 k/uL (0-1.0); Monocytes % (A) 4 %; Neutrophils # (A) 8.6 k/uL (1.3-7.7); Neutrophils % (A) 87 %; RBC 2.94 m/uL (3.80-5.40); RDW 13.7 % (11.5-15.5); WBC (Perox) 10.71
[2017-05-21 06:36] LABS: Anion Gap 6 mmol/L; Blood Urea Nitrogen 16 mg/dL (7-17); Carbon Dioxide 26 mmol/L (22-30); Chloride 106 mmol/L (98-107); Glucose 102 mg/dL (74-99); Non-African American GFR(MDRD) >60 (>60 ml/min/1.73 sqM); Potassium 4.1 mmol/L (3.5-5.1); Sodium 138 mmol/L (137-145)
[2017-05-21] MEDS: MAGNESIUM OXIDE 400 MG TAB PO SCH (08:49)
[2017-05-21] MEDS: CYANOCOBALAMIN 500 MCG TAB PO SCH (08:49)
[2017-05-21] MEDS: FAMOTIDINE 20 MG TAB PO SCH (08:49)
[2017-05-21] MEDS: CHOLECALCIFEROL 1,000 UNIT TAB PO SCH (08:49)
[2017-05-21] MEDS: FLECAINIDE 50 MG TAB PO SCH ×2 (08:50→22:36)
[2017-05-21] MEDS: COLCHICINE 0.6 MG TAB PO SCH (08:50)
[2017-05-21] MEDS: METOPROLOL TARTRATE 25 MG TAB PO SCH ×2 (08:51→22:37)
[2017-05-21] MEDS: RALOXIFENE 60 MG TAB PO SCH (08:53)
--- NOTE | 2017-05-21 10:53 | PN ---
PROGRESS NOTE Mrs. Soares is a 72-year-old female who presented with symptoms of progressive dyspnea and chest discomfort. She has underwent an atrial fibrillation ablation. She had episode of confusion earlier. She appears to be better. She was dyspneic during the night. She denies any chest pain. She is sitting up. She has underwent thoracentesis of 750 mL of serosanguineous fluid on the left side on Sunday. She continued to be in sinus mechanism and has no episode of palpitation or dizziness. She has continued to be at this time on Lipitor 20 mg daily, colchicine 0.6 mg daily, flecainide 100 mg twice a day, metoprolol tartrate 25 mg twice a day, magnesium and Evista 60 mg daily. PHYSICAL EXAMINATION: Blood pressure 145/70 with the heart rate in the 90s. LUNGS: With decreased air exchange bilaterally, more noted bilaterally with a few crackles. HEART: Regular rate and rhythm. S1, S2. No S3. I am not able to appreciate any gallop. ABDOMEN: Soft, nontender. Positive bowel sounds. No organomegaly. EXTREMITIES: No significant edema. LAB DATA: Lab data revealed a BUN and creatinine of 16 and 0.9. Potassium 4.1. Her hemoglobin is 8.9. Her white blood cells are down to 10,000. IMPRESSION: 1. Postprocedure pericardial effusion and pleural effusion with pre-tamponade symptoms that appear to be improving. 2. Status post ablation of atrial fibrillation, remains in sinus mechanism at this point. 3. Renal failure, improved, probably related to hypoperfusion. 4. Episode of confusion and hallucination, could be related to the hypoperfusion. RECOMMENDATION: I will review the results of her echocardiogram today and will obtain a chest x-ray and depending on that, further recommendation will be made. I spoke with the in detail and he is quite anxious to see if she can go home. MMODL / IJN: [id number] /
--- NOTE | 2017-05-21 10:54 | ECHOF ---
Referral Reason:effusion MEASUREMENTS -------- HEIGHT: 172.7 cm WEIGHT: 95.7 kg BP: 145/72 RAP: 5.00 mmHg RVSP: 41.69 mmHg FINDINGS -------- Limited Study Overall left ventricular systolic function is normal with, an EF between 60 - 65 %. Mild tricuspid regurgitation present. There is mild pulmonary hypertension. There is a small pericardial effusion located near the left ventricle. There is no evidence of cardiac tamponade. Small Pleural Effusion. CONCLUSIONS -------- 1. Limited Study 2. Overall left ventricular systolic function is normal with, an EF between 60 - 65 %. 3. Mild tricuspid regurgitation present. 4. There is mild pulmonary hypertension. 5. There is a small pericardial effusion located near the left ventricle. 6. There is no evidence of cardiac tamponade. 7. Small Pleural Effusion. LOGISTICS PLANNING ENGINEER: Camille King RDCS
[2017-05-21] MEDS: IPRATROPIUM-ALBUTEROL 3 ML NEB INHALATION SCH ×4 (10:59→20:05)
--- NOTE | 2017-05-21 11:34 | CDI ---
In responding to this query, please exercise your independent professional judgment. The [facility] Coding Staff and Clinical Documentation Specialists appreciate your assistance in clarifying documentation, maintaining compliance with coding guidelines, accurately documenting patients condition and capturing severity of illness. The fact that a question is asked does not imply that any particular answer is desired or expected. Communication forms are a method of clarifying documentation and are not made part of the Legal Health Record. Thank you in advance for your clarification. Last Revision, June 2015 Ronit Hickey [address] [facility] [facility] [place] [address] Documentation Clarification Form Date: 05/21/2017 11:22:00 AM From: Katelynn Montero RN, CCDS Admit Date: 05/18/2017 11:52:00 AM Patient Name: Ana Soares Visit Number: [id number] Dr. Jun Monique A diagnosis of anemia lacks specificity to accurately reflect your patients severity of condition and clarification is needed. Patient history/risk factors: Pt came in s/p ablation with pericardial and pleural effusion, anemia Clinical Indicators: Hemoglobin: 9.7/9.8/8.8/8.9 Hematocrit: 31/31.5/29.7/29.5 Xarelto 20 mg PO QD Treatment: B-12 PO QD, Folic Acid PO, Vitamin D3 IVF Bolus In order to capture the severity of condition, please clarify the type of anemia and etiology if known: Acute blood loss anemia Acute on chronic blood loss anemia Chronic blood loss anemia Iron deficiency anemia Hemolytic anemia Drug induced anemia Anemia due to malignancy Nutritional anemia Anemia of chronic kidney disease Unable to determine Other, please specify Please document in your progress notes and discharge summary in order to capture severity of illness and risk of mortality. Include clinical findings that support your diagnosis. FYI: Press F11 to launch patient chart. ALEXANDER
--- NOTE | 2017-05-21 11:44 | XR ---
EXAMINATION TYPE: XR chest 2V DATE OF EXAM: 05/21/2017 COMPARISON: 05/20/17 HISTORY: Shortness of breath FINDINGS: Noted is progressive pulmonary venous congestion with scattered infiltrates. There is also cardiomegaly and small effusions. IMPRESSION: Findings compatible with congestive failure. Infiltrates of other etiology are not excluded. Clinical correlation and progress studies are recommended.
[2017-05-21] MEDS: MULTIVITAMINS, THERA 1 EACH TAB PO SCH (11:47)
[2017-05-21] MEDS: FOLIC ACID 1 MG TAB PO SCH (11:47)
[2017-05-21] MEDS: FUROSEMIDE 40 MG TAB PO SCH (14:18)
--- NOTE | 2017-05-21 14:42 | P.PN ---
Subjective Patient is stable. She is lying comfortably in bed. She did get up and sit in the chair today. The mental status is unchanged she is alert and oriented and recognizes me and gives me a full history. She denies any chest discomfort no undue shortness of breath she was really weak this morning when he tried to walk her but she did sit in the chair. No fever no chills no cough or expectoration On examination decreased air entry bilaterally at the bases No pericardial rub no S3 gallop Abdomen soft nontender No JVD 2-D echo shows preserved LV systolic function Small pericardial effusion, significant improvement since Sunday Impression Inflammatory pleuropericarditis following cryoablation with an ESR of 106, white count of 21,000, elevated neutral count and platelet counts greater than 600,000, afebrile Large pleural effusion on the left side, smaller pleural effusion on the right side, moderate pericardial effusion on Sunday with subtle tamponade physiology with a pulsus paradoxus of 15 mmHg and a mitral inflow E-wave peak velocity variation of about 24% Yesterday improvement in pulsus paradoxus to 5 mmHg and improvement in inflammatory parameters Significant improvement in pericardial effusion today on 2-D echo, progressive improvement in white count and neutrophil count Status post thoracentesis yesterday on the left side, exudative fluid Suggest Continue anticoagulation. I will restart Rivaroxaban today 20 mg by mouth daily. Continue flecainide 100 mg twice daily, continue beta blockers Daily Lasix 40 mg by mouth daily DVT prophylaxis ongoing with sequentials Back on Rivaroxaban Colchicine 0.6 mg by mouth daily along with Pepcid If she remains stable then she should be able to go home in the next 24-48 hours Up in a chair Incentive spirometer, encourage greater use DVT prophylaxis Physical therapy Encourage ambulation Encourage sitting up in a chair and at the edge of the bed Objective - Vital Signs Vital signs: Vital Signs Temp 97.6 F 05/21/17 12:00 Pulse 91 05/21/17 12:00 Resp 18 05/21/17 12:00 BP 158/91 05/21/17 12:00 Pulse Ox 93 L 05/21/17 12:00 Intake & Output 05/20/17 05/21/17 05/21/17 18:59 06:59 18:59 Intake Total 500 190 Output Total 600 350 Balance -100 -160 Weight 93.5 kg Intake: IV 10 .9 10 Oral 500 180 Output: Urine 600 350 Other: Voiding Method Bedpan Bedpan # Voids 2 1 # Bowel Movements 1 - Labs CBC & Chem 7: 05/21/17 06:09 05/21/17 06:09 Labs: Abnormal Lab Results - Last 24 Hours (Table) 05/21/17 05/21/17 Range/Units 06:09 06:09 RBC 2.94 L (3.80-5.40) m/uL Hgb 8.9 L (11.4-16.0) gm/dL Hct 29.5 L (34.0-46.0) % MCV 100.2 H (80.0-100.0) fL MCHC 30.1 L (31.0-37.0) g/dL Plt Count 749 H (150-450) k/uL Neutrophils # 8.6 H (1.3-7.7) k/uL Lymphocytes # 0.4 L (1.0-4.8) k/uL Glucose 102 H (74-99) mg/dL Microbiology - Last 24 Hours (Table) 05/18/17 08:40 Blood Culture - Preliminary Blood No Growth after 72 hours 05/19/17 15:20 Gram Stain - Preliminary Pleural Fluid Body Fluid Culture - Preliminary 05/19/17 04:30 Urine Culture - Final Urine,Voided
[2017-05-21 15:08] LABS: CHCM 29.6; HCT 29.7 % (34.0-46.0); HDW 2.73; HGB 9.3 gm/dL (11.4-16.0); Hypochromasia Marked; MCH 31.8 pg (25.0-35.0); MCHC 31.3 g/dL (31.0-37.0); MCV 101.5 fL (80.0-100.0); Macrocytosis Slight; RBC 2.92 m/uL (3.80-5.40); RDW 13.7 % (11.5-15.5); WBC 11.7 k/uL (3.8-10.6)
--- NOTE | 2017-05-21 15:15 | P.PN ---
Subjective Progress note dated 05/21/2017 72-year-old female who had a thoracentesis performed by my partner. 750 mL of fluid was drained. She was feeling better. The patient's chest x-ray my opinion still does show fluid overload. The patient's currently being evaluated and treated for a Abdon syndrome. The patient sitting up in bed. Feeling less short of breath. Denies any chest pain or chest discomfort. No fever or chills. No chest pain. No cough or phlegm production. The patient's pericardial effusion and bilateral pleural effusions is thought to be 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 She does have a history of atrial fibrillation status post recent ablation and also suffers from fibromyalgia hypertension hyperlipidemia hypothyroidism lymphoma. Objective - Vital Signs Vital signs: Vital Signs Temp 97.6 F 05/21/17 12:00 Pulse 91 05/21/17 12:00 Resp 18 05/21/17 12:00 BP 158/91 05/21/17 12:00 Pulse Ox 93 L 05/21/17 12:00 Intake & Output 05/20/17 05/21/17 05/21/17 18:59 06:59 18:59 Intake Total 500 190 500 Output Total 600 350 200 Balance -100 -160 300 Weight 93.5 kg Intake: IV 10 .9 10 Oral 500 180 500 Output: Urine 600 350 200 Other: Voiding Method Bedpan Bedpan # Voids 2 1 3 # Bowel Movements 1 - Exam No acute distress, oriented 3. HEENT examination is grossly unremarkable. Mucous membranes are moist. No oral lesions. Neck supple. Full range of motion. No adenopathy or thyromegaly. Cardiovascular examination reveals distant heart sounds. S1-S2 normal. No S3- S4. No distinct murmur noted. Lungs reveal bibasilar crackles. There is dullness at the bases. Breath sounds in the upper lobes appear normal. No rhonchi. No wheezes. Abdomen soft bowel sounds are heard. Extremities are intact. No cyanosis clubbing. Slight edema. Skin is without rash. Neurologic examination is nonfocal. - Labs CBC & Chem 7: 05/21/17 14:32 05/21/17 06:09 Labs: Abnormal Lab Results - Last 24 Hours (Table) 05/21/17 05/21/17 05/21/17 Range/Units 06:09 06:09 14:32 WBC 11.7 H (3.8-10.6) k/uL RBC 2.94 L 2.92 L (3.80-5.40) m/uL Hgb 8.9 L 9.3 L (11.4-16.0) gm/dL Hct 29.5 L 29.7 L (34.0-46.0) % MCV 100.2 H 101.5 H (80.0-100.0) fL MCHC 30.1 L (31.0-37.0) g/dL Plt Count 749 H 695 H (150-450) k/uL Neutrophils # 8.6 H (1.3-7.7) k/uL Lymphocytes # 0.4 L (1.0-4.8) k/uL Glucose 102 H (74-99) mg/dL Microbiology - Last 24 Hours (Table) 05/18/17 08:40 Blood Culture - Preliminary Blood No Growth after 72 hours 05/19/17 15:20 Gram Stain - Preliminary Pleural Fluid Body Fluid Culture - Preliminary 05/19/17 04:30 Urine Culture - Final Urine,Voided Assessment and Plan (1) Elevated troponin Status: Acute (2) Pericardial effusion Status: Acute (3) Pleural effusion Status: Acute (4) Status post ablation of atrial fibrillation Status: Acute (5) Status post thoracentesis Status: Acute (6) Acute exacerbation of CHF (congestive heart failure) Status: Acute (7) Atrial fibrillation with rapid ventricular response Status: Acute (8) Congestive heart failure Status: Acute (9) HTN (hypertension) Status: Acute (10) Lymphoma Status: Acute Plan: Plan The patient seems be doing better from the breathing standpoint. Seems to have benefited by my partners thoracentesis which removed roughly 750 mL of fluid from the pleural space. The patient will have a repeat echocardiogram. Additional recommendations and suggestions are forthcoming. Time with Patient: Less than 30
--- NOTE | 2017-05-21 17:05 | PN ---
PROGRESS NOTE DATE OF SERVICE: 05/20/2017 This 72-year-old woman was admitted with bilateral chest pain and pericardial effusion. She is being closely monitored at this time. The patient was started on colchicine. The patient has significantly improved. She is confused at this time. Multiple consultants are following the patient closely, including Cardiology and Cardiothoracic Surgery. Large pleural effusion on the left side is noted and the patient underwent a repeat 2D echo today. Past medical history reviewed. REVIEW OF SYSTEMS: CARDIOVASCULAR SYSTEM: As mentioned earlier. RESPIRATORY SYSTEM: As mentioned earlier. GI: As mentioned earlier. : No dysuria or retention. NERVOUS SYSTEM: No numbness, weakness. CURRENT MEDICATIONS: Current medications are reviewed and include: 1. [place] 5 mg q.6 p.r.n. 2. DuoNeb q.i.d. and p.r.n. 3. Lipitor 20 mg at bedtime. 4. Vitamin D3. 5. Vitamin B12. 6. Pepcid. 7. Tambocor. 8. Folic acid. 9. Lasix. 10.Dilaudid. 11.Synthroid. 12.Magnesium oxide. 13.Lopressor. 14.Multivitamins. 15.Evista. 16.Xarelto. PHYSICAL EXAMINATION: Patient is alert and oriented x3. Pulse 91, blood pressure 135/80, respirations 16, temperature 97.6, pulse ox 96% on 2 L. HEENT: Conjunctivae normal. Oral mucosa moist. NECK: No jugular venous distention. No carotid bruit. No lymph node enlargement. CARDIOVASCULAR: S1, S2 muffled. RESPIRATORY: Breath sounds diminished at the bases. A few scattered rhonchi. No crackles. ABDOMEN: Soft, nontender. LEGS: No edema. No swelling. NERVOUS SYSTEM: No focal deficit. LABS: Labs at this time show WBC 15, hemoglobin 8.8, sodium 136, creatinine 1.20. ASSESSMENT: 1. 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 No evidence tamponade currently. 2. Increased white count. 3. Anemia. 4. Increased mean corpuscular volume. 5. Increased platelets. 6. Hyponatremia. 7. Hypokalemia. 8. Increased plasma lactic acid. 9. Gait dysfunction. 10.Mild acute renal failure, possibly multifactorial. 11.Troponin 0.044, indeterminate. 12.History of atrial fibrillation. 13.History of fibromyalgia. 14.Hypertension. 15.Hyperlipidemia. 16.Hypothyroidism. 17.History of lymphoma, status post chemotherapy. 18.Familial tremors, history. 19.Anemia of chronic disease. 20.FULL CODE. RECOMMENDATIONS AND DISCUSSION: I recommend to continue current medication, continue with the monitoring, symptomatic treatment. Otherwise at this time I recommend continuing with the current medications. Continue with symptomatic treatment. Continue to monitor. Further recommendations to follow. MMODL / IJN: [id number] /
[2017-05-21] MEDS ORDERED: RIVAROXABAN 10 MG TAB PO SCH (17:30)
[2017-05-21] MEDS: DULoxetine HCL 30 MG CAPSULE.DR PO SCH (22:36)
[2017-05-21] MEDS: ATORVASTATIN 20 MG TAB PO SCH (22:37)
--- NOTE | 2017-05-22 05:17 | PN ---
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 The patient was started on colchicine. Patient improving significantly. stent was considered. Patient also had creatinine improved from 1.2 to 0.90. Hemoglobin was 9.3. PHYSICAL EXAM: On exam, alert, oriented x3. Pulse 94, blood pressure 150/77, respiration 18, temperature 97.6, pulse ox 93% on 2 L. HEENT: Conjunctivae normal. Oral mucosa moist. Neck is no jugular venous distention. No carotid bruit. No lymph node enlargement. CARDIOVASCULAR: S1 and S2 muffled. RESPIRATORY: Diminished breath sounds at the bases. A few rhonchi. No crackles. ABDOMEN: Soft, nontender. LEGS: No edema, no swelling. NERVOUS SYSTEM: No focal deficits. LABS: WBC 11.7, hemoglobin 9.3. ASSESSMENT: 1. 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 No evidence of tamponade . 2. Increased WBC. 3. Anemia normocytic anemia of chronic disease. 4. Increased MCV. 5. Increased platelets. 6. Hyponatremia. 7. Hypokalemia. 8. Increased plasma lactic acid. 9. Mild acute renal failure possibly multifactorial. RECOMMENDATIONS AND DISCUSSION: Recommend to continue current medication. Continue symptomatic treatment. Otherwise at this time I would recommend continue with current medications. Continue with colchicine. Guarded prognosis because of multiple complex medical issues. Further recommendations to follow. MMODL / IJN: [id number] / MTDD
[2017-05-22 06:18] LABS: Basophils % (A) 0 %; CH 30.3; CHCM 30.8; Eosinophils # (A) 0.2 k/uL (0-0.7); Eosinophils % (A) 2 %; HCT 28.7 % (34.0-46.0); HDW 2.52; HGB 8.8 gm/dL (11.4-16.0); Hypochromasia Slight; Luc # (Auto) 0.21; Luc % (Auto) 2; Lymphocytes # (A) 0.4 k/uL (1.0-4.8); Lymphocytes % (A) 4 %; MCH 30.2 pg (25.0-35.0); MCHC 30.7 g/dL (31.0-37.0); MCV 98.6 fL (80.0-100.0); Mean Platelet Volume 6.8; Monocytes # (A) 0.5 k/uL (0-1.0); Monocytes % (A) 5 %; Neutrophils # (A) 8.3 k/uL (1.3-7.7); Neutrophils % (A) 86 %; RBC 2.91 m/uL (3.80-5.40); RDW 13.7 % (11.5-15.5); WBC 9.7 k/uL (3.8-10.6); WBC (Perox) 10.23
[2017-05-22 06:24] LABS: Anion Gap 8 mmol/L; Blood Urea Nitrogen 12 mg/dL (7-17); Calcium 8.9 mg/dL (8.4-10.2); Carbon Dioxide 26 mmol/L (22-30); Chloride 102 mmol/L (98-107); Glucose 121 mg/dL (74-99); Non-African American GFR(MDRD) >60 (>60 ml/min/1.73 sqM); Potassium 3.7 mmol/L (3.5-5.1); Sodium 136 mmol/L (137-145)
[2017-05-22] MEDS: LEVOTHYROXINE 75 MCG TAB PO SCH (06:31)
[2017-05-22] MEDS: IPRATROPIUM-ALBUTEROL 3 ML NEB INHALATION SCH ×3 (08:46→15:41)
[2017-05-22] MEDS: CHOLECALCIFEROL 1,000 UNIT TAB PO SCH (09:10)
[2017-05-22] MEDS: CYANOCOBALAMIN 500 MCG TAB PO SCH (09:10)
[2017-05-22] MEDS: FLECAINIDE 50 MG TAB PO SCH (09:10)
[2017-05-22] MEDS: FUROSEMIDE 40 MG TAB PO SCH (09:10)
[2017-05-22] MEDS: COLCHICINE 0.6 MG TAB PO SCH (09:10)
[2017-05-22] MEDS: MAGNESIUM OXIDE 400 MG TAB PO SCH (09:11)
[2017-05-22] MEDS: METOPROLOL TARTRATE 25 MG TAB PO SCH (09:11)
[2017-05-22] MEDS: FAMOTIDINE 20 MG TAB PO SCH (09:11)
[2017-05-22] MEDS: RALOXIFENE 60 MG TAB PO SCH (09:11)
--- NOTE | 2017-05-22 10:21 | PN ---
PROGRESS NOTE Mrs. Soares is a 72-year-old female with a history of atrial fibrillation, status post ablation, who was readmitted to the hospital with symptoms of dyspnea and chest discomfort, was noted to have a pericardial and pleural effusion. She has underwent left pleural thoracentesis. She is in sinus mechanism, feeling well. She is denying any chest pain. Her energy is better. She denies any dizziness palpitation. She denies any nausea. She continued to be on Lipitor 20 mg daily, colchicine 0.6 mg daily, flecainide 100 mg twice a day, furosemide 40 mg daily, metoprolol tartrate 25 mg twice a day, and Xarelto 20 mg daily. PHYSICAL EXAMINATION: Blood pressure 150/70 with the heart rate in the 90s. LUNGS: With mild decrease in breath sounds at the bases. No wheezes. HEART: Regular rate rhythm. S1, S2. No S3. No rub. ABDOMEN: Soft, nontender. EXTREMITIES: No edema. LAB DATA: Lab data revealed hemoglobin of 8.8. BUN and creatinine of 12 and 0.8. Potassium 3.7. IMPRESSION: 1. Status post atrial fibrillation ablation. 2. Postprocedure pericardial and pleural effusion, stable. No evidence of tamponade at this time. 3. Acute renal failure, resolved. 4. Episode of confusion, resolved. RECOMMENDATION: From the cardiac standpoint, she is stable to be discharged home today and follow up on a regular basis with Dr. Shah. MMZOEYL / NICOLEN: [id number] /
[2017-05-22 11:59] VITALS: BP 136/79; RESP 24; TEMP 98.2
--- NOTE | 2017-05-22 12:13 | P.PN ---
Subjective Progress note dated 05/21/2017 72-year-old female who had a thoracentesis performed by my partner. 750 mL of fluid was drained. She was feeling better. The patient's chest x-ray my opinion still does show fluid overload. The patient's currently being evaluated and treated for a Abdon syndrome. The patient sitting up in bed. Feeling less short of breath. Denies any chest pain or chest discomfort. No fever or chills. No chest pain. No cough or phlegm production. The patient's pericardial effusion and bilateral pleural effusions is thought to be 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 She does have a history of atrial fibrillation status post recent ablation and also suffers from fibromyalgia hypertension hyperlipidemia hypothyroidism lymphoma. Progress note dated 05/22/2017 72-year-old female with a history of atrial fibrillation status post recent ablation fibromyalgia hypertension hyperlipidemia hypothyroidism and lymphoma. The patient was admitted with a diagnosis of difficulty breathing. In part is related to pericardial effusion and a pleural effusion. My partner did a left thoracentesis over the weekend. 750 mL of fluid was removed. Path and most of the chemistry is still pending. She's feeling better. She apparently is possibly be discharged home today. The patient really has no major complaints other than feeling profoundly weak. The patient will have follow-up with Dr. Bro in the office. Objective - Vital Signs Vital signs: Vital Signs Temp 98.2 F 05/22/17 11:58 Pulse 85 05/22/17 11:58 Resp 24 05/22/17 11:58 BP 136/79 05/22/17 11:58 Pulse Ox 94 L 05/22/17 11:58 Intake & Output 05/21/17 05/22/17 05/22/17 18:59 06:59 18:59 Intake Total 800 480 Output Total 200 Balance 600 480 Weight 94.5 kg Intake: Oral 800 480 Output: Urine 200 Other: Voiding Method Bedside Commode Toilet Toilet # Voids 1 1 1 - Exam No acute distress, oriented 3. HEENT examination is grossly unremarkable. Mucous membranes are moist. No oral lesions. Neck supple. Full range of motion. No adenopathy or thyromegaly. Cardiovascular examination reveals distant heart sounds. S1-S2 normal. No S3- S4. No distinct murmur noted. Lungs reveal bibasilar crackles. There is dullness at the bases. Breath sounds in the upper lobes appear normal. No rhonchi. No wheezes. Abdomen soft bowel sounds are heard. Extremities are intact. No cyanosis clubbing. Slight edema. Skin is without rash. Neurologic examination is nonfocal. - Labs CBC & Chem 7: 05/22/17 05:48 05/22/17 05:48 Labs: Abnormal Lab Results - Last 24 Hours (Table) 05/21/17 05/22/17 05/22/17 Range/Units 14:32 05:48 05:48 WBC 11.7 H (3.8-10.6) k/uL RBC 2.92 L 2.91 L (3.80-5.40) m/uL Hgb 9.3 L 8.8 L (11.4-16.0) gm/dL Hct 29.7 L 28.7 L (34.0-46.0) % MCV 101.5 H (80.0-100.0) fL MCHC 30.7 L (31.0-37.0) g/dL Plt Count 695 H 756 H (150-450) k/uL Neutrophils # 8.3 H (1.3-7.7) k/uL Lymphocytes # 0.4 L (1.0-4.8) k/uL Sodium 136 L (137-145) mmol/L Glucose 121 H (74-99) mg/dL Microbiology - Last 24 Hours (Table) 05/18/17 08:40 Blood Culture - Preliminary Blood No Growth after 96 hours 05/19/17 15:20 Acid Fast Bacilli Smear - Final Pleural Fluid Acid Fast Bacilli Culture - Preliminary 05/19/17 15:20 Gram Stain - Preliminary Pleural Fluid Body Fluid Culture - Preliminary Assessment and Plan (1) Elevated troponin Status: Acute (2) Pericardial effusion Status: Acute (3) Pleural effusion Status: Acute (4) Status post ablation of atrial fibrillation Status: Acute (5) Status post thoracentesis Status: Acute (6) Acute exacerbation of CHF (congestive heart failure) Status: Acute (7) Atrial fibrillation with rapid ventricular response Status: Acute (8) Congestive heart failure Status: Acute (9) HTN (hypertension) Status: Acute (10) Lymphoma Status: Acute Plan: Plan The patient seems be doing better from the breathing standpoint. Seems to have benefited by my partners thoracentesis which removed roughly 750 mL of fluid from the pleural space. The patient will have a repeat echocardiogram. Additional recommendations and suggestions are forthcoming. Plan dated 05/22/2017 The patient will possibly be discharged home today. The patient has follow-up appointment with my partner in the office. Should the patient's chest x-ray show recurrent or enlarging pleural effusion, she may benefit again from another thoracentesis. Apparently cardiology is cleared her without the need for pericardiocentesis. Additional recommendations suggestions are forthcoming. Prognosis is guarded. Time with Patient: Less than 30
--- NOTE | 2017-05-22 12:33 | P.PN ---
Subjective Principal diagnosis: Patient is doing better did she is sitting up in a chair. She is using the incentive spirometer. She is able to take a fairly good deep breath in, inspiration and hold it. She does not have any chest discomfort no dizziness lightheadedness. She has been ambulating in the guevara and has gone to the bathroom walking. She's afebrile. Blood pressure is 136/79 mmHg, afebrile 98.2 F, pulse rate in the 80s sinus rhythm On examination her breath sounds are reduced only at the bases air entry is fair bilaterally. Heart sounds S1 and S2 are normal no rub no gallop Abdomen soft nontender Extremities are warm no edema, no JVD Impression Patient admitted with inflammatory pleuropericarditis secondary to cryoablation , about 8-10 days after the procedure. Left thoracentesis successful. Pericardial effusion resolved with anti-inflammatory medications and observation. Improvement in inflammatory markers. White count has normalized neutrophil count has normalized Renal function is improved and normalized Paroxysmal atrial fibrillation status post cryoablation with complete isolation of all 4 pulmonary veins Hypertension Anticoagulation begun yesterday and remained stable Plan From a cardiac standpoint patient may go home and follow-up with me this Sunday. I made the appointment Continue anticoagulation with xarelto No changes in home medications New medications added include Colchicine 0.6 mg once daily for a week along with Pepcid 20 mg once daily for a week Lasix 20 mg by mouth daily for one month and flecainide 50 g twice daily for one month These medications will be discontinued at the appropriate times Later follow-up Holter monitor in about 6-8 weeks Objective - Vital Signs Vital signs: Vital Signs Temp 98.2 F 05/22/17 11:58 Pulse 85 05/22/17 11:58 Resp 24 05/22/17 11:58 BP 136/79 05/22/17 11:58 Pulse Ox 94 L 05/22/17 11:58 Intake & Output 05/21/17 05/22/17 05/22/17 18:59 06:59 18:59 Intake Total 800 480 180 Output Total 200 Balance 600 480 180 Weight 94.5 kg Intake: Oral 800 480 180 Output: Urine 200 Other: Voiding Method Bedside Commode Toilet Toilet # Voids 1 1 1 - Labs CBC & Chem 7: 05/22/17 05:48 05/22/17 05:48 Labs: Abnormal Lab Results - Last 24 Hours (Table) 05/21/17 05/22/17 05/22/17 Range/Units 14:32 05:48 05:48 WBC 11.7 H (3.8-10.6) k/uL RBC 2.92 L 2.91 L (3.80-5.40) m/uL Hgb 9.3 L 8.8 L (11.4-16.0) gm/dL Hct 29.7 L 28.7 L (34.0-46.0) % MCV 101.5 H (80.0-100.0) fL MCHC 30.7 L (31.0-37.0) g/dL Plt Count 695 H 756 H (150-450) k/uL Neutrophils # 8.3 H (1.3-7.7) k/uL Lymphocytes # 0.4 L (1.0-4.8) k/uL Sodium 136 L (137-145) mmol/L Glucose 121 H (74-99) mg/dL Microbiology - Last 24 Hours (Table) 05/18/17 08:40 Blood Culture - Preliminary Blood No Growth after 96 hours 05/19/17 15:20 Acid Fast Bacilli Smear - Final Pleural Fluid Acid Fast Bacilli Culture - Preliminary 05/19/17 15:20 Gram Stain - Preliminary Pleural Fluid Body Fluid Culture - Preliminary
[2017-05-22 12:35] VITALS: PULSE 84
[2017-05-22] MEDS: FOLIC ACID 1 MG TAB PO SCH (13:20)
[2017-05-22] MEDS: MULTIVITAMINS, THERA 1 EACH TAB PO SCH (13:20)
--- NOTE | 2017-05-22 16:21 | P.DS ---
Providers Date of admission: 05/18/17 11:52 Attending physician: Jun Monique Consults: 05/18/17 11:49 Consult Physician Routine Consulting Provider: Carito Galeas Consult Reason/Comments: pleural effusion Do you want consulting provider notified?: Yes Consult Physician Routine Consulting Provider: Jerome Solorzano Consult Reason/Comments: pericardial effusion Do you want consulting provider notified?: Yes Primary care physician: [facility] Hospital Course: This 72-year-old woman with a past medical history multiple medical problems was admitted with a bilateral chest pain and features of for pericardial effusion and as well as pleural effusion after a cardiac ablation. The possibility of for pleuropericarditis secondary to Abdon syndrome was considered. Patient was seen by multiple consultants including Dr. Bro cardio thoracic surgery And cardiology. Please refer to the respective notes and consultations for further details. Patient is started on colchicine. Patient improved significantly. Patient was discharged in a stable pressure the guarded prognosis. Total time taken 35 minutes. Home O2 is also being arranged. Patient was recommended to follow-up with the primary physician and broach setter and cardiothoracic surgery and pulmonary in the outpatient setting. On exam vitals are stable. Cardio S1 and S2 normal. Respirator system few scattered rhonchi. Abdomen soft nontender. Final diagnosis 1. Bilateral chest pain secondary to pleural effusion and pericardial effusion possibly after cardiac ablation secondary to pleuropericarditis and Abdon syndrome. Improved no evidence of tamponade. 2. Increased obesity. 3. Anemia normocytic anemia of chronic disease. 4. Increased MCV. 5. Increased platelets. 6. Hyponatremia. 7. Hypokalemia. 8. Increased plasma lactic acid. 9. Mild acute renal failure possibly multifactorial. Patient Condition at Discharge: Fair Plan - Discharge Summary New Discharge Prescriptions: New Colchicine [Colcrys] 0.6 mg PO DAILY #30 tab Flecainide [Tambocor] 50 mg PO Q12HR #60 tab Metoprolol Tartrate [Lopressor] 25 mg PO BID tab Furosemide [Lasix] 20 mg PO DAILY #30 tab Continue Raloxifene [Evista] 60 mg PO DAILY Levothyroxine Sodium [Synthroid] 150 mcg PO DAILY Multivitamins, Thera [Multivitamin (formulary)] 1 tab PO DAILY Cyanocobalamin [Vitamin B-12] 1,000 mcg PO DAILY Cholecalciferol [Vitamin D3] 2,000 unit PO DAILY DULoxetine HCL [Cymbalta] 90 mg PO HS Fiber Advance 2 cap PO DAILY Lisinopril [Zestril] 2.5 mg PO DAILY #30 tab Atorvastatin [Lipitor] 20 mg PO HS Folic Acid 1 mg PO DAILY@1200 #30 tab Magnesium Chloride [Slow-Mag] 128 mg PO DAILY Rivaroxaban [Xarelto] 20 mg PO HS Famotidine [Pepcid] 20 mg PO DAILY #7 tablet HYDROcodone/APAP 5-325MG [[place] 5-325] 1 tab PO Q8H #15 tab Discontinued Colchicine [Colcrys] 0.6 mg PO BID #6 tablet Metoprolol Succinate [Toprol XL] 25 mg PO DAILY Discharge Medication List Raloxifene [Evista] 60 mg PO DAILY 02/27/15 [History] Cholecalciferol [Vitamin D3] 2,000 unit PO DAILY 06/26/15 [History] Cyanocobalamin [Vitamin B-12] 1,000 mcg PO DAILY 06/26/15 [History] DULoxetine HCL [Cymbalta] 90 mg PO HS 06/26/15 [History] Fiber Advance 2 cap PO DAILY 06/26/15 [History] Levothyroxine Sodium [Synthroid] 150 mcg PO DAILY 06/26/15 [History] Multivitamins, Thera [Multivitamin (formulary)] 1 tab PO DAILY 06/26/15 [History ] Lisinopril [Zestril] 2.5 mg PO DAILY #30 tab 07/03/15 [Rx] Atorvastatin [Lipitor] 20 mg PO HS 10/18/15 [History] Folic Acid 1 mg PO DAILY@1200 #30 tab 10/22/15 [Rx] Magnesium Chloride [Slow-Mag] 128 mg PO DAILY 05/04/17 [History] Rivaroxaban [Xarelto] 20 mg PO HS 05/04/17 [History] Famotidine [Pepcid] 20 mg PO DAILY #7 tablet 05/09/17 [Rx] HYDROcodone/APAP 5-325MG [[place] 5-325] 1 tab PO Q8H #15 tab 05/09/17 [Rx] Colchicine [Colcrys] 0.6 mg PO DAILY #30 tab 05/22/17 [Rx] Flecainide [Tambocor] 50 mg PO Q12HR #60 tab 05/22/17 [Rx] Furosemide [Lasix] 20 mg PO DAILY #30 tab 05/22/17 [Rx] Metoprolol Tartrate [Lopressor] 25 mg PO BID tab 05/22/17 [Rx] Follow up Appointment(s)/Referral(s): Carito Galeas MD [STAFF PHYSICIAN] - 06/01/17 1:30 pm Lui Shah MD [STAFF PHYSICIAN] - 05/26/17 (OFFICE WILL CALL WITH TIME) Kylie Bernal III, MD [Primary Care Provider] - 05/29/17 2:00 pm [facility], [NON-STAFF] - Ambulatory/Diagnostic Orders: Complete Blood Count w/diff [LAB.AMB] Location: Determined By Patient Patient Instructions/Handouts: Thoracentesis (DC), Heart Healthy Diet (DC) Activity/Diet/Wound Care/Special Instructions: Nebulizer and oxygen ordered through [facility]: #[phone] ACTIVITY LIMITED UNTIL FOLLOW UP Discharge Disposition: HOME SELF-CARE
[2017-05-22] MEDS ORDERED: FLECAINIDE 50 MG TAB PO SCH (21:00)
[2017-05-23] MEDS ORDERED: FUROSEMIDE 20 MG TAB PO SCH (09:00)
== END 2017-05-22 16:03 | disposition home or self-care (01) | DRG 314 ==
LOC: EC 07:45 → 6SEL 11:52
PROVIDERS: ADMIT Hospitalist; ATTEND Hospitalist
PROC: 0W9B3ZZ Drainage of Left Pleural Cavity, Percutaneous Approach (ICD-10-PCS; principal; 2017-05-19)
DX: I24.1 Dressler's syndrome (principal); I50.23 Acute on chronic systolic (congestive) heart failure; N17.9 Acute kidney failure, unspecified; E87.1 Hypo-osmolality and hyponatremia; I95.9 Hypotension, unspecified; I27.20 Pulmonary hypertension, unspecified; I48.0 Paroxysmal atrial fibrillation; I11.0 Hypertensive heart disease with heart failure; I07.1 Rheumatic tricuspid insufficiency; E86.0 Dehydration; I48.2 Chronic atrial fibrillation; N14.1 Nephropathy induced by other drugs, medicaments and biological substances; D63.8 Anemia in other chronic diseases classified elsewhere; D72.829 Elevated white blood cell count, unspecified; E03.9 Hypothyroidism, unspecified; E66.9 Obesity, unspecified; E78.5 Hyperlipidemia, unspecified; E87.6 Hypokalemia; G25.0 Essential tremor; M79.7 Fibromyalgia; R26.9 Unspecified abnormalities of gait and mobility; D47.3 Essential (hemorrhagic) thrombocythemia; R41.0 Disorientation, unspecified; T50.4X5A Adverse effect of drugs affecting uric acid metabolism, initial encounter; Z79.01 Long term (current) use of anticoagulants; Z79.899 Other long term (current) drug therapy; Z88.8 Allergy status to other drugs, medicaments and biological substances; Z85.828 Personal history of other malignant neoplasm of skin; Z85.72 Personal history of non-Hodgkin lymphomas; Z82.49 Family history of ischemic heart disease and other diseases of the circulatory system; Y92.239 Unspecified place in hospital as the place of occurrence of the external cause
CPT/HCPCS: 36415; 71010; 71020; 71275; 74177; 76604; 80048; 80053; 81001; 82150; 82465; 82550; 82553; 82728; 82945; 83540; 83550; 83605; 83615; 83690; 83735; 84100; 84157; 84311; 84478; 84484; 85025; 85027; 85610; 85652; 85730; 86850; 86870; 86880; 86900; 86901; 87040; 87070; 87086; 87116; 87205; 87206; 89050; 93005; 93306; 93308; 94640; 94760; 96361; 96374; 96375; 99285

== ENCOUNTER 2018-07-13 17:10 | Emergency (ER) | payer BC, MEDICARE ==
[2018-07-13] MEDS ORDERED: SODIUM CHLORIDE 0.9% 1,000 ML IV STA (17:13)
--- NOTE | 2018-07-13 17:16 | ED ---
General Adult HPI - General Stated complaint: fall - History of Present Illness Initial comments: Dictation was produced using [employer] dictation software. please excuse any grammatical, word or spelling errors. Chief Complaint: 73-year-old female with past history of atrial fibrillation on Xarelto presents after fall. History of Present Illness: Patient allegedly syncopized. She was at [employer] approximate 30 minutes prior to arrival when she fell backwards. Patient states she's been feeling faint for the last 2 or 3 days. Patient is on Xarelto for atrial fibrillation. Patient denies any pain complaints. She does feel slightly clammy. Denies any constitutional symptoms. No cough, sore throat. No abdominal pain. No changes in urinary habits. No nausea vomiting. The ROS documented in this emergency department record has been reviewed and confirmed by me. Those systems with pertinent positive or negative responses have been documented in the HPI. All other systems are other negative and/or noncontributory. - Related Data Home Medications Medication Instructions Recorded Confirmed Raloxifene [Evista] 60 mg PO DAILY 02/27/15 07/13/18 Cholecalciferol [Vitamin D3] 2,000 unit PO DAILY 06/26/15 07/13/18 Cyanocobalamin [Vitamin B-12] 1,000 mcg PO DAILY 06/26/15 07/13/18 Levothyroxine Sodium [Synthroid] 150 mcg PO DAILY 06/26/15 07/13/18 Atorvastatin [Lipitor] 20 mg PO HS 10/18/15 07/13/18 Magnesium Chloride [Slow-Mag] 128 mg PO DAILY 05/04/17 07/13/18 Rivaroxaban [Xarelto] 20 mg PO DAILY@1600 05/04/17 07/13/18 Metoprolol Tartrate [Lopressor] 25 mg PO HS 07/13/18 07/13/18 Previous Rx's Medication Instructions Recorded Lisinopril [Zestril] 2.5 mg PO DAILY #30 tab 07/03/15 Allergies Allergy/AdvReac Type Severity Reaction Status Date / Time paroxetine HCl [From Paxil] Allergy Hallucinati Verified 07/13/18 17:33 ons pregabalin [From Lyrica] Allergy Hallucinati Verified 07/13/18 17:33 ons Review of Systems ROS Statement: Those systems with pertinent positive or pertinent negative responses have been documented in the HPI. ROS Other: All systems not noted in ROS Statement are negative. Past Medical History Past Medical History: Atrial Fibrillation, Cancer, Fibromyalgia, Hyperlipidemia , Hypertension, Thyroid Disorder Additional Past Medical History / Comment(s): Pt recently admitted to [facility] -had cardiac ablation. Other hx: AFib/RVR/tachycardia, lymphoma diagnosed fall 2014 with with abdominal mass- last chemo completed 05/21/15 and mass is gone per pt, has periods of weakness ever since cancer diagnosis, shingles fall 2014, anemia, essential tremors, hypothyroid, uti, skin cancer with removal. History of Any Multi-Drug Resistant Organisms: None Reported Past Surgical History: Cardiac Ablation, Tonsillectomy Additional Past Surgical History / Comment(s): lymph node bx-forehead, hemorrhoids, left carotid endartectomy 2004, bilateral cataracts removed with lens implants, COLONOSCOPY, basal cell skin cancer removed from abdomin, colonoscopy Past Anesthesia/Blood Transfusion Reactions: Previous Problems w/ Anesthesia Additional Past Anesthesia/Blood Transfusion Reaction / Comment(s): Patient states that anaesthesia wears off very slowly and she is drowsy for a while. Smoking Status: Never smoker - Past Family History Sister(s) Family Medical History: Cancer Mother Family Medical History: Congestive Heart Failure (CHF), Coronary Artery Disease (CAD) Additional Family Medical History / Comment(s): Mother smoked. She at age 75 yrs. Father Family Medical History: Congestive Heart Failure (CHF), Coronary Artery Disease (CAD), Dementia Additional Family Medical History / Comment(s): Father smoked. He at age 75 yrs. General Exam - General Exam Comments Initial Comments: Dictation was produced using [employer] dictation software. please excuse any grammatical, word or spelling errors. Chief Complaint: 73-year-old female with past history of atrial fibrillation on Xarelto presents after fall. History of Present Illness: Patient allegedly syncopized. She was at [employer] approximate 30 minutes prior to arrival when she fell backwards. Patient states she's been feeling faint for the last 2 or 3 days. Patient is on Xarelto for atrial fibrillation. Patient denies any pain complaints. She does feel slightly clammy. Denies any constitutional symptoms. No cough, sore throat. No abdominal pain. No changes in urinary habits. No nausea vomiting. The ROS documented in this emergency department record has been reviewed and confirmed by me. Those systems with pertinent positive or negative responses have been documented in the HPI. All other systems are other negative and/or noncontributory. Course Vital Signs 07/13/18 07/13/18 07/13/18 17:15 17:30 18:00 Temperature 97.9 F Pulse Rate 104 H 98 103 H Respiratory 16 15 17 Rate Blood Pressure 138/86 138/86 146/85 O2 Sat by Pulse 96 96 98 Oximetry 07/13/18 07/13/18 07/13/18 18:30 19:00 19:30 Temperature Pulse Rate 110 H 111 H 105 H Respiratory 16 17 16 Rate Blood Pressure 147/83 150/93 136/76 O2 Sat by Pulse 97 95 95 Oximetry Medical Decision Making - Medical Decision Making ED course: 73-year-old female presents after syncope. Vital signs upon arrival are within acceptable limits. Patient does have signs of external trauma on the head.Laboratory evaluation obtained per it CBC, coag panel, metabolic panel is unremarkable. CT head and C-spine shows no acute processes. Chest x-ray is unremarkable. Pending urine studies. Patient wanted to leave as soon as possible. She is willing to leave despite the results for her urine studies. Patient not have any urinary symptoms at this time. Patient told to call back for her urine results patient told to follow-up with her primary care physician for outpatient workup of syncope. This point there is no clear etiology of patient's syncope however she has been stable on the awake overnight monitor here in emergency department. Patient and bleeding without difficulty tolerating by mouth and feels at baseline. I believe discharge is reasonable disposition given that she has good follow up. EKG interpretation: Ventricular rate 102, sinus tachycardia, first-degree AV block,. Interval to 10, QRS 68, QTc 435. No MA prolongation, no QTC prolongation, no ST or T-wave changes noted. Overall, this EKG is unremarkable - Lab Data Result diagrams: 07/13/18 17:30 07/13/18 17:30 Lab Results 07/13/18 07/13/18 07/13/18 Range/Units 17:30 17:30 17:30 WBC 7.3 (3.8-10.6) k/uL RBC 4.40 (3.80-5.40) m/uL Hgb 14.3 (11.4-16.0) gm/dL Hct 41.9 (34.0-46.0) % MCV 95.2 (80.0-100.0) fL MCH 32.5 (25.0-35.0) pg MCHC 34.2 (31.0-37.0) g/dL RDW 12.8 (11.5-15.5) % Plt Count 240 (150-450) k/uL Neutrophils % 75 % Lymphocytes % 13 % Monocytes % 7 % Eosinophils % 2 % Basophils % 1 % Neutrophils # 5.5 (1.3-7.7) k/uL Lymphocytes # 1.0 (1.0-4.8) k/uL Monocytes # 0.5 (0-1.0) k/uL Eosinophils # 0.2 (0-0.7) k/uL Basophils # 0.0 (0-0.2) k/uL PT (9.0-12.0) sec INR (<1.2) APTT (22.0-30.0) sec Sodium 138 (137-145) mmol/L Potassium 4.1 (3.5-5.1) mmol/L Chloride 105 (98-107) mmol/L Carbon Dioxide 26 (22-30) mmol/L Anion Gap 7 mmol/L BUN 20 H (7-17) mg/dL Creatinine 1.06 H (0.52-1.04) mg/dL Est GFR (CKD-EPI)AfAm 60 (>60 ml/min/1.73 sqM) Est GFR (CKD-EPI)NonAf 52 (>60 ml/min/1.73 sqM) Glucose 137 H (74-99) mg/dL POC Glucose (mg/dL) (75-99) mg/dL POC Glu Warp Dresser ID Calcium 10.1 (8.4-10.2) mg/dL Magnesium 1.9 (1.6-2.3) mg/dL Total Bilirubin 0.5 (0.2-1.3) mg/dL AST 20 (14-36) U/L ALT 17 (9-52) U/L Alkaline Phosphatase 100 (38-126) U/L Total Creatine Kinase 38 (30-135) U/L CK-MB (CK-2) 0.3 (0.0-2.4) ng/mL CK-MB (CK-2) Rel Index 0.8 Troponin I <0.012 (0.000-0.034) ng/mL Total Protein 6.6 (6.3-8.2) g/dL Albumin 3.6 (3.5-5.0) g/dL 07/13/18 07/13/18 Range/Units 17:30 17:37 WBC (3.8-10.6) k/uL RBC (3.80-5.40) m/uL Hgb (11.4-16.0) gm/dL Hct (34.0-46.0) % MCV (80.0-100.0) fL MCH (25.0-35.0) pg MCHC (31.0-37.0) g/dL RDW (11.5-15.5) % Plt Count (150-450) k/uL Neutrophils % % Lymphocytes % % Monocytes % % Eosinophils % % Basophils % % Neutrophils # (1.3-7.7) k/uL Lymphocytes # (1.0-4.8) k/uL Monocytes # (0-1.0) k/uL Eosinophils # (0-0.7) k/uL Basophils # (0-0.2) k/uL PT 10.2 (9.0-12.0) sec INR 1.0 (<1.2) APTT 20.7 L (22.0-30.0) sec Sodium (137-145) mmol/L Potassium (3.5-5.1) mmol/L Chloride (98-107) mmol/L Carbon Dioxide (22-30) mmol/L Anion Gap mmol/L BUN (7-17) mg/dL Creatinine (0.52-1.04) mg/dL Est GFR (CKD-EPI)AfAm (>60 ml/min/1.73 sqM) Est GFR (CKD-EPI)NonAf (>60 ml/min/1.73 sqM) Glucose (74-99) mg/dL POC Glucose (mg/dL) 131 H (75-99) mg/dL POC Glu Warp Dresser ID Calcium (8.4-10.2) mg/dL Magnesium (1.6-2.3) mg/dL Total Bilirubin (0.2-1.3) mg/dL AST (14-36) U/L ALT (9-52) U/L Alkaline Phosphatase (38-126) U/L Total Creatine Kinase (30-135) U/L CK-MB (CK-2) (0.0-2.4) ng/mL CK-MB (CK-2) Rel Index Troponin I (0.000-0.034) ng/mL Total Protein (6.3-8.2) g/dL Albumin (3.5-5.0) g/dL Disposition Clinical Impression: Syncope Disposition: HOME SELF-CARE Condition: Good Instructions: Syncope (ED) Is patient prescribed a controlled substance at d/c from ED?: No Referrals: Terrie Buitrago MD [Primary Care Provider] - 1-2 days Time of Disposition: 20:21
[2018-07-13 17:21] VITALS: RESP 16
[2018-07-13 17:40] LABS: Glucose,Whole Blood 131 mg/dL (75-99)
[2018-07-13 17:44] LABS: Basophils % (A) 1 %; Eosinophils # (A) 0.2 k/uL (0-0.7); Eosinophils % (A) 2 %; HCT 41.9 % (34.0-46.0); HGB 14.3 gm/dL (11.4-16.0); Lymphocytes % (A) 13 %; MCH 32.5 pg (25.0-35.0); MCHC 34.2 g/dL (31.0-37.0); MCV 95.2 fL (80.0-100.0); Mean Platelet Volume 7.5; Monocytes # (A) 0.5 k/uL (0-1.0); Monocytes % (A) 7 %; Neutrophils # (A) 5.5 k/uL (1.3-7.7); Neutrophils % (A) 75 %; Platelet Count 240 k/uL (150-450); RDW 12.8 % (11.5-15.5); WBC 7.3 k/uL (3.8-10.6)
[2018-07-13 17:52] LABS: Albumin 3.6 g/dL (3.5-5.0); Calcium 10.1 mg/dL (8.4-10.2); Magnesium 1.9 mg/dL (1.6-2.3); Potassium 4.1 mmol/L (3.5-5.1); Total Bilirubin 0.5 mg/dL (0.2-1.3); Total Protein 6.6 g/dL (6.3-8.2)
[2018-07-13 17:59] LABS: Prothrombin Time 10.2 sec (9.0-12.0)
--- NOTE | 2018-07-13 18:05 | CT ---
EXAMINATION TYPE: CT brain cspine wo con DATE OF EXAM: 07/13/2018 COMPARISON: CT brain May 09, 2017. CT cervical spine October 15, 2012. HISTORY: Syncope and fall. Headache and neck pain. CT DLP: 1255.5 mGycm. Automated Exposure Control for Dose Reduction was Utilized. TECHNIQUE: CT scan of the head and cervical spine are performed without contrast. FINDINGS: There is no acute intracranial hemorrhage or midline shift identified. The ventricles an d sulci are within normal limits in size for patient's age. Some low-attenuation in periventricular and deep white matter is redemonstrated. The globes are intact and the visualized sinuses are clear. The calvarium is intact. There is acute small to moderate-sized high left parietal occipital scalp he matoma near axial image 43 noted. Cervical spine is visualized in its entirety from C1 through upper thoracic levels and demonstrates p ersistent grade 1 retrolisthesis of C5 on C6 without evidence of acute fracture or dislocation. Prev ertebral soft tissue appears within normal limits. The C1-C2 articulation is within normal limits on the coronal images. Vertebral body heights are maintained. Moderate disc space narrowing and anterior spurring C5-C6 leve l is redemonstrated. Spinal canal is grossly preserved without large disc herniations identified. Thy roid gland is not well seen and may be congenitally atrophic without significant interval change from prior CT. Lung apices are clear. IMPRESSION: 1. There is no acute fracture or dislocation evident in the cervical spine. No significant change fro m prior CT. 2. No acute intracranial hemorrhage or midline shift is seen. There is small to moderate-size acute l eft parietal occipital scalp hematoma noted.
[2018-07-13 18:09] LABS: Creatine Kinase 38 U/L (30-135)
[2018-07-13 18:10] LABS: Partial Thromboplastin Time 20.7 sec (22.0-30.0)
[2018-07-13 18:23] LABS: Creatine Kinase MB 0.3 ng/mL (0.0-2.4); Troponin I <0.012 ng/mL (0.000-0.034)
--- NOTE | 2018-07-13 19:15 | XR ---
EXAMINATION TYPE: XR chest 2V DATE OF EXAM: 07/13/2018 COMPARISON: Most recent chest x-ray September 04, 2017 HISTORY: Syncope and fall. TECHNIQUE: Frontal and lateral views of the chest are obtained. FINDINGS: There is chronic parenchymal change without suspicious new focal air space opacity, pleura l effusion, or pneumothorax seen. The cardiac silhouette size is stable and mildly enlarged. The o sseous structures are intact. IMPRESSION: Chronic parenchymal change and mild cardiomegaly without acute pulmonary process.
[2018-07-13 20:21] LABS: Appearance,Urine Clear (Clear); Bilirubin,Urine Negative (Negative); Blood,Urine Trace (Negative); Color,Urine Yellow; Glucose,Urine (UA) Negative (Negative); Hyaline Casts,Urine 126 /lpf (0-2); Ketones,Urine Negative (Negative); Leukocyte Esterase,Urine Moderate (Negative); Mucus,Urine Rare /hpf; Nitrite,Urine Negative (Negative); Protein,Urine Negative (Negative); RBC,Urine 1 /hpf (0-5); Specific Gravity,Urine 1.012 (1.001-1.035); Squamous Epithelial Cell,Urine 2 /hpf (0-4); Urobilinogen,Urine <2.0 mg/dL (<2.0); WBC,Urine 17 /hpf (0-5)
--- NOTE | 2018-07-13 20:24 | ED ---
Medical Decision Making - Lab Data Result diagrams: 07/13/18 17:30 07/13/18 17:30 Lab Results 07/13/18 07/13/18 07/13/18 Range/Units 17:30 17:30 17:30 WBC 7.3 (3.8-10.6) k/uL RBC 4.40 (3.80-5.40) m/uL Hgb 14.3 (11.4-16.0) gm/dL Hct 41.9 (34.0-46.0) % MCV 95.2 (80.0-100.0) fL MCH 32.5 (25.0-35.0) pg MCHC 34.2 (31.0-37.0) g/dL RDW 12.8 (11.5-15.5) % Plt Count 240 (150-450) k/uL Neutrophils % 75 % Lymphocytes % 13 % Monocytes % 7 % Eosinophils % 2 % Basophils % 1 % Neutrophils # 5.5 (1.3-7.7) k/uL Lymphocytes # 1.0 (1.0-4.8) k/uL Monocytes # 0.5 (0-1.0) k/uL Eosinophils # 0.2 (0-0.7) k/uL Basophils # 0.0 (0-0.2) k/uL PT (9.0-12.0) sec INR (<1.2) APTT (22.0-30.0) sec Sodium 138 (137-145) mmol/L Potassium 4.1 (3.5-5.1) mmol/L Chloride 105 (98-107) mmol/L Carbon Dioxide 26 (22-30) mmol/L Anion Gap 7 mmol/L BUN 20 H (7-17) mg/dL Creatinine 1.06 H (0.52-1.04) mg/dL Est GFR (CKD-EPI)AfAm 60 (>60 ml/min/1.73 sqM) Est GFR (CKD-EPI)NonAf 52 (>60 ml/min/1.73 sqM) Glucose 137 H (74-99) mg/dL POC Glucose (mg/dL) (75-99) mg/dL POC Glu Engagement Manager ID Calcium 10.1 (8.4-10.2) mg/dL Magnesium 1.9 (1.6-2.3) mg/dL Total Bilirubin 0.5 (0.2-1.3) mg/dL AST 20 (14-36) U/L ALT 17 (9-52) U/L Alkaline Phosphatase 100 (38-126) U/L Total Creatine Kinase 38 (30-135) U/L CK-MB (CK-2) 0.3 (0.0-2.4) ng/mL CK-MB (CK-2) Rel Index 0.8 Troponin I <0.012 (0.000-0.034) ng/mL Total Protein 6.6 (6.3-8.2) g/dL Albumin 3.6 (3.5-5.0) g/dL Urine Color Urine Appearance (Clear) Urine pH (5.0-8.0) Ur Specific [place] (1.001-1.035) Urine Protein (Negative) Urine Glucose (UA) (Negative) Urine Ketones (Negative) Urine Blood (Negative) Urine Nitrite (Negative) Urine Bilirubin (Negative) Urine Urobilinogen (<2.0) mg/dL Ur Leukocyte Esterase (Negative) Urine RBC (0-5) /hpf Urine WBC (0-5) /hpf Ur Squamous Epith Cells (0-4) /hpf Hyaline Casts (0-2) /lpf Urine Mucus (None) /hpf 07/13/18 07/13/18 07/13/18 Range/Units 17:30 17:37 19:45 WBC (3.8-10.6) k/uL RBC (3.80-5.40) m/uL Hgb (11.4-16.0) gm/dL Hct (34.0-46.0) % MCV (80.0-100.0) fL MCH (25.0-35.0) pg MCHC (31.0-37.0) g/dL RDW (11.5-15.5) % Plt Count (150-450) k/uL Neutrophils % % Lymphocytes % % Monocytes % % Eosinophils % % Basophils % % Neutrophils # (1.3-7.7) k/uL Lymphocytes # (1.0-4.8) k/uL Monocytes # (0-1.0) k/uL Eosinophils # (0-0.7) k/uL Basophils # (0-0.2) k/uL PT 10.2 (9.0-12.0) sec INR 1.0 (<1.2) APTT 20.7 L (22.0-30.0) sec Sodium (137-145) mmol/L Potassium (3.5-5.1) mmol/L Chloride (98-107) mmol/L Carbon Dioxide (22-30) mmol/L Anion Gap mmol/L BUN (7-17) mg/dL Creatinine (0.52-1.04) mg/dL Est GFR (CKD-EPI)AfAm (>60 ml/min/1.73 sqM) Est GFR (CKD-EPI)NonAf (>60 ml/min/1.73 sqM) Glucose (74-99) mg/dL POC Glucose (mg/dL) 131 H (75-99) mg/dL POC Glu Engagement Manager ID Calcium (8.4-10.2) mg/dL Magnesium (1.6-2.3) mg/dL Total Bilirubin (0.2-1.3) mg/dL AST (14-36) U/L ALT (9-52) U/L Alkaline Phosphatase (38-126) U/L Total Creatine Kinase (30-135) U/L CK-MB (CK-2) (0.0-2.4) ng/mL CK-MB (CK-2) Rel Index Troponin I (0.000-0.034) ng/mL Total Protein (6.3-8.2) g/dL Albumin (3.5-5.0) g/dL Urine Color Yellow Urine Appearance Clear (Clear) Urine pH 5.0 (5.0-8.0) Ur Specific [place] 1.012 (1.001-1.035) Urine Protein Negative (Negative) Urine Glucose (UA) Negative (Negative) Urine Ketones Negative (Negative) Urine Blood Trace H (Negative) Urine Nitrite Negative (Negative) Urine Bilirubin Negative (Negative) Urine Urobilinogen <2.0 (<2.0) mg/dL Ur Leukocyte Esterase Moderate H (Negative) Urine RBC 1 (0-5) /hpf Urine WBC 17 H (0-5) /hpf Ur Squamous Epith Cells 2 (0-4) /hpf Hyaline Casts 126 H (0-2) /lpf Urine Mucus Rare H (None) /hpf Disposition Clinical Impression: Syncope, UTI (urinary tract infection) Disposition: HOME SELF-CARE Condition: Good Instructions: Syncope (ED) Prescriptions: Cephalexin [Keflex] 500 mg PO Q6HR 5 Days #20 cap Is patient prescribed a controlled substance at d/c from ED?: No Referrals: Terrie Buitrago MD [Primary Care Provider] - 1-2 days Time of Disposition: 20:24
[2018-07-13 20:30] VITALS: BP 122/79; PULSE 126; TEMP 98.8
--- NOTE | 2018-07-16 08:23 | CDI ---
Documentation Clarification OP Dear John Lopez, DO Please do addendum to ED report for complete Physical Exam. Thank you, Satish Boyer Dobby Loom Fixer If you have any questions, please contact Retail Operations Specialist at [phone] [facility]
== END 2018-07-13 20:30 | disposition home or self-care (01) ==
LOC: EC 17:10
DX: N39.0 Urinary tract infection, site not specified (principal); R55 Syncope and collapse; I44.0 Atrioventricular block, first degree; I48.91 Unspecified atrial fibrillation; E78.5 Hyperlipidemia, unspecified; I10 Essential (primary) hypertension; E03.9 Hypothyroidism, unspecified; Z85.828 Personal history of other malignant neoplasm of skin; Z85.72 Personal history of non-Hodgkin lymphomas; Z92.21 Personal history of antineoplastic chemotherapy; Z98.890 Other specified postprocedural states; Z79.01 Long term (current) use of anticoagulants; Z79.899 Other long term (current) drug therapy; Z88.8 Allergy status to other drugs, medicaments and biological substances; W18.39XA Other fall on same level, initial encounter; Y92.512 Supermarket, store or market as the place of occurrence of the external cause
CPT/HCPCS: 36415; 70450; 71046; 72125; 80053; 81001; 82550; 82553; 83735; 84484; 85025; 85610; 85730; 93005; 96360; 99285

== ENCOUNTER → 2018-10-17 | Outpatient (CLI) | payer MEDICARE ==
--- NOTE | 2018-10-17 12:21 | BD ---
EXAMINATION TYPE: Axial Bone Density DATE OF EXAM: 10/17/2018 COMPARISON: 03.10.2010 DEXA bone scan CLINICAL HISTORY: 73 YR OLD FEMALE...ICD-10 CODE: Z78.0 POST MENOPAUSAL Height: 66.8 Weight: 180 FRAX RISK QUESTIONS: NOTHING TO NOTE HERE RISK FACTORS HISTORY OF: Active: YES Postmenopausal woman: YES, AT 50 YRS OLD Take estrogen and/or progesterone medications: IN THE PAST FOR 5 YRS Lost more than 2 inches in height since high school: YES Frequent falls: A BIT UNSTEADY MEDICATIONS: Thyroid Medications: YES, SYNTHROID, FOR ABOUT 20+ YRS Osteoporosis Medications: YES, EVISTA, FOR ABOUT 15 YRS Additional Medications: BP MEDS, HX OF CHEMO IN PAST, STATIN FOR CHOLESTEROL, VIT D3, MAGNESIUM, Additional History: HX OF LYMPHOMA....HEAD AND ABDOMEN EXAM MEASUREMENTS: Bone mineral densitometry was performed using the [employer] System. Bone mineral density as measured about the Lumbar spine is: ----- L1-L4(G/cm2): 1.428 T Score Values are as follows: ----- L1: 0.2 ----- L2: 1.1 ----- L3: 3.2 ----- L4: 3.2 ----- L1-L4: 2.1 Bone mineral density has: Increased 12.8% since study of: 03.10.2010 Bone mineral density about the R hip (g/cm2): 0.882 Bone mineral density about the L hip (g/cm2): 0.917 T Score values are as follows: -----R Neck: -1.3 -----L Neck: -1.6 -----R Total: -1.0 -----L Total: -0.7 Bone mineral density has: Decreased -1.4% since study of: 03.10.2010 FRAX%s: THERE IS A 11.2% CHANCE FOR A MAJOR OSTEOPOROTIC FX AND A 2.1% FOR HIP....PROBABILITY OF FX IN 10 YRS TIME IMPRESSION: Osteopenia (T Score between -2.5 and -1) remains present femoral neck level of both hips. There is slightly increased risk of fracture and the patient may be considered for treatment. Re-Screen 2-5 years. NOTE: T-SCORE=SD OF THE YOUNG ADULT MEAN.
--- NOTE | 2018-10-18 10:32 | MM ---
Reason for exam: screening (asymptomatic). Last mammogram was performed 4 years and 5 months ago. History: Patient is postmenopausal and has history of other cancer at age 40. Family history of premenopausal breast cancer in sister at age 40. Took estrogen for 5 years. Physical Findings: A clinical breast exam by your physician is recommended on an annual basis and results should be correlated with mammographic findings. MG 3D Screening Mammo W/Cad Bilateral CC and MLO view(s) were taken. Prior study comparison: May 11, 2014, bilateral MG screening mammo w CAD. July 05, 2011, bilateral digital screening mammo w/CAD. The breast tissue is heterogeneously dense. This may lower the sensitivity of mammography. Benign appearing bilateral calcifications. No significant changes when compared with prior studies. ASSESSMENT: Benign, BI-RAD 2 RECOMMENDATION: Routine screening mammogram of both breasts in 1 year.
== END ==
LOC: RADMAMWWP 09:45
PROVIDERS: ATTEND Family Medicine
DX: Z12.31 Encounter for screening mammogram for malignant neoplasm of breast (principal); M85.852 Other specified disorders of bone density and structure, left thigh; M85.851 Other specified disorders of bone density and structure, right thigh; Z78.0 Asymptomatic menopausal state
CPT/HCPCS: 77063; 77067; 77080

== ENCOUNTER 2019-03-20 12:52 | Emergency (ER) | payer MEDICARE ==
[2019-03-20 13:11] VITALS: RESP 16; TEMP 97.9
[2019-03-20] MEDS ORDERED: ACETAMINOPHEN TAB 500 MG TAB PO STA (14:01)
--- NOTE | 2019-03-20 14:09 | ED ---
Fall HPI - General Source: patient Mode of arrival: wheelchair <Yu Castano - Last Filed: 03/20/19 18:41> <Merlin Guerra - Last Filed: 03/20/19 19:11> - General Chief Complaint: Fall Stated Complaint: Fall Time Seen by Provider: 03/20/19 13:34 - History of Present Illness Initial Comments: Patient is a 74-year-old female presenting to the emergency Department with complaints of a headache 1 week. Patient states she was walking outside and tripped over a speed bump on the pavement one week ago landing mostly on her hands and knees but also hitting the left side of her head on the pavement. Patient denies LOC. Patient states she has had a headache for the last week. Patient states she called her doctor about it today and he recommended her going to the ER. Patient does admit to being on Xeraltol for A. fib. Patient states ever since the fall she has been feeling a little bit "uneasy" and states that she is having intermittent blurry vision. Patient has past medical history of lymphoma and an essential tremor of the left arm. Patient denies fever, chills, shortness of breath, chest pain, abdominal pain, nausea, vomiting. Patient rates her headache as a 6/10 right now. (Yu Castano) - Related Data Home Medications Medication Instructions Recorded Confirmed Raloxifene [Evista] 60 mg PO DAILY 02/27/15 07/13/18 Cholecalciferol [Vitamin D3 (25 2,000 unit PO DAILY 06/26/15 07/13/18 Mcg = 1000 Iu)] Cyanocobalamin [Vitamin B-12] 1,000 mcg PO DAILY 06/26/15 07/13/18 Levothyroxine Sodium [Synthroid] 150 mcg PO DAILY 06/26/15 07/13/18 Atorvastatin [Lipitor] 20 mg PO HS 10/18/15 07/13/18 Magnesium Chloride [Slow-Mag] 128 mg PO DAILY 05/04/17 07/13/18 Rivaroxaban [Xarelto] 20 mg PO DAILY@1600 05/04/17 07/13/18 Metoprolol Tartrate [Lopressor] 25 mg PO HS 07/13/18 07/13/18 Previous Rx's Medication Instructions Recorded Lisinopril [Zestril] 2.5 mg PO DAILY #30 tab 07/03/15 Cephalexin [Keflex] 500 mg PO Q6HR 5 Days #20 cap 07/13/18 Allergies Allergy/AdvReac Type Severity Reaction Status Date / Time paroxetine HCl [From Paxil] Allergy Hallucinati Verified 03/20/19 13:11 ons pregabalin [From Lyrica] Allergy Hallucinati Verified 03/20/19 13:11 ons Review of Systems ROS Other: All systems not noted in ROS Statement are negative. <Yu Castano - Last Filed: 03/20/19 18:41> ROS Other: All systems not noted in ROS Statement are negative. <Merlin Guerra - Last Filed: 03/20/19 19:11> ROS Statement: Those systems with pertinent positive or pertinent negative responses have been documented in the HPI. Past Medical History Past Medical History: Atrial Fibrillation, Cancer, Fibromyalgia, Hyperlipidemia, Hypertension, Thyroid Disorder Additional Past Medical History / Comment(s): Pt recently admitted to [facility] 05/07/17-had cardiac ablation. Other hx: AFib/RVR/tachycardia, lymphoma diagnosed fall 2014 with with abdominal mass- last chemo completed 05/21/15 and mass is gone per pt, has periods of weakness ever since cancer diagnosis, shingles fall 2014, anemia, essential tremors, hypothyroid, uti, skin cancer with removal. History of Any Multi-Drug Resistant Organisms: None Reported Past Surgical History: Cardiac Ablation, Tonsillectomy Additional Past Surgical History / Comment(s): lymph node bx-forehead, hemorrhoids, left carotid endartectomy 2004, bilateral cataracts removed with lens implants, COLONOSCOPY, basal cell skin cancer removed from abdomin, colo noscopy Past Anesthesia/Blood Transfusion Reactions: Previous Problems w/ Anesthesia Additional Past Anesthesia/Blood Transfusion Reaction / Comment(s): Patient states that anaesthesia wears off very slowly and she is drowsy for a while. Past Psychological History: No Psychological Hx Reported Smoking Status: Never smoker - Past Family History Sister(s) Family Medical History: Cancer Mother Family Medical History: Congestive Heart Failure (CHF), Coronary Artery Disease (CAD) Additional Family Medical History / Comment(s): Mother smoked. She at age 75 yrs. Father Family Medical History: Congestive Heart Failure (CHF), Coronary Artery Disease (CAD), Dementia Additional Family Medical History / Comment(s): Father smoked. He at age 75 yrs. <Yu Castano Rich - Last Filed: 03/20/19 18:41> General Exam Limitations: no limitations General appearance: alert, in no apparent distress Head exam: Present: atraumatic, normal inspection Eye exam: Present: normal appearance, PERRL, EOMI, other (Mild bruising under her left eye) Pupils: Present: normal accommodation ENT exam: Present: normal exam, normal oropharynx, mucous membranes moist Neck exam: Present: normal inspection, full ROM. Absent: tenderness, lymphadenopathy Respiratory exam: Present: normal lung sounds bilaterally. Absent: respiratory distress, wheezes, rales Cardiovascular Exam: Present: regular rate, normal rhythm, normal heart sounds. Absent: rubs, gallop GI/Abdominal exam: Present: soft, normal bowel sounds. Absent: tenderness, guarding Neurological exam: Present: alert, oriented X3, CN II-XII intact Expanded Patient oriented to: Present: person, place, time Speech: Present: fluid speech Cranial nerves: EOM's Intact: Normal, Tongue Deviation: Normal, Nystagmus: Normal, Facial Sensation: Normal Cerebellar function: Finger to Nose: Normal (Essential tremor of the left upper extremity) Upper motor neuron: Pronator Drift: Normal Motor strength exam: RUE: 4, LUE: 4, RLE: 5, LLE: 5 Eye Response: (4) open spontaneously Motor Response: (6) obeys commands Verbal Response: (5) oriented Portis Total: 15 Psychiatric exam: Present: normal affect, normal mood Skin exam: Present: warm, dry, intact. Absent: rash <Yu Castano - Last Filed: 03/20/19 18:41> Course <Merlin Guerra - Last Filed: 03/20/19 19:11> Vital Signs 03/20/19 03/20/19 13:06 16:01 Temperature 97.9 F Pulse Rate 109 H 79 Respiratory 16 16 Rate Blood Pressure 134/80 140/92 O2 Sat by Pulse 96 100 Oximetry - Reevaluation(s) Reevaluation #1: 03/20/19 19:10 PA supervision: I personally did an evaluation this case and did review the imaging and reports and did initially. The workup thus far is negative for acute processes. I do agree with the assessment and plan (Merlin Guerra) Medical Decision Making - Lab Data Result diagrams: 03/20/19 14:49 03/20/19 14:49 <Yu Castano - Last Filed: 03/20/19 18:41> - Lab Data Result diagrams: 03/20/19 14:49 03/20/19 14:49 <Merlin Guerra - Last Filed: 03/20/19 19:11> - Medical Decision Making Patient is a 74-year-old female presenting to the ER for headache 1 week after she took a fall. Patient states she went to her doctor today and he recommended ER visit for possible computed tomography scan. Patient does admit to being on Xeralto for A fib. Patient's exam is unremarkable. Patient does have an essential tremor of the left upper extremity that is chronic in nature. CBC, CMP are within normal limits. INR 0.9. UA shows 10 WBCs and rare bacteria. Patient is asymptomatic at this time. CT of the brain shows no acute intracranial hemorrhage. Did show stable prominence of the right ICA terminus and basilar artery caliber. Findings were discussed with the patient and she is comfortable to be discharged home. Patient did receive Tylenol for her headache which did improve her symptoms. Return parameters were discussed with the patient she verbalized understanding. Case was discussed with Dr. Guerra and he agrees with plan of care. (Yu Castano) - Lab Data Lab Results 03/20/19 03/20/19 03/20/19 Range/Units 14:00 14:49 14:49 WBC 7.2 (3.8-10.6) k/uL RBC 4.61 (3.80-5.40) m/uL Hgb 14.4 (11.4-16.0) gm/dL Hct 44.6 (34.0-46.0) % MCV 96.7 (80.0-100.0) fL MCH 31.2 (25.0-35.0) pg MCHC 32.3 (31.0-37.0) g/dL RDW 14.4 (11.5-15.5) % Plt Count 248 (150-450) k/uL Neutrophils % 74 % Lymphocytes % 11 % Monocytes % 7 % Eosinophils % 5 % Basophils % 1 % Neutrophils # 5.3 (1.3-7.7) k/uL Lymphocytes # 0.8 L (1.0-4.8) k/uL Monocytes # 0.5 (0-1.0) k/uL Eosinophils # 0.4 (0-0.7) k/uL Basophils # 0.0 (0-0.2) k/uL PT (9.0-12.0) sec INR (<1.2) APTT (22.0-30.0) sec Sodium 140 (137-145) mmol/L Potassium 4.6 (3.5-5.1) mmol/L Chloride 106 (98-107) mmol/L Carbon Dioxide 28 (22-30) mmol/L Anion Gap 6 mmol/L BUN 15 (7-17) mg/dL Creatinine 0.85 (0.52-1.04) mg/dL Est GFR (CKD-EPI)AfAm 78 (>60 ml/min/1.73 sqM) Est GFR (CKD-EPI)NonAf 68 (>60 ml/min/1.73 sqM) Glucose 87 (74-99) mg/dL Calcium 10.3 H (8.4-10.2) mg/dL Total Bilirubin 0.6 (0.2-1.3) mg/dL AST 27 (14-36) U/L ALT 19 (9-52) U/L Alkaline Phosphatase 149 H (38-126) U/L Total Protein 7.7 (6.3-8.2) g/dL Albumin 4.4 (3.5-5.0) g/dL Urine Color Yellow Urine Appearance Cloudy H (Clear) Urine pH 5.5 (5.0-8.0) Ur Specific [place] 1.012 (1.001-1.035) Urine Protein Negative (Negative) Urine Glucose (UA) Negative (Negative) Urine Ketones Negative (Negative) Urine Blood Trace H (Negative) Urine Nitrite Negative (Negative) Urine Bilirubin Negative (Negative) Urine Urobilinogen <2.0 (<2.0) mg/dL Ur Leukocyte Esterase Large H (Negative) Urine RBC 8 H (0-5) /hpf Urine WBC 10 H (0-5) /hpf Ur Squamous Epith Cells 3 (0-4) /hpf Urine Bacteria Rare H (None) /hpf Urine Mucus Rare H (None) /hpf 03/20/19 Range/Units 14:49 WBC (3.8-10.6) k/uL RBC (3.80-5.40) m/uL Hgb (11.4-16.0) gm/dL Hct (34.0-46.0) % MCV (80.0-100.0) fL MCH (25.0-35.0) pg MCHC (31.0-37.0) g/dL RDW (11.5-15.5) % Plt Count (150-450) k/uL Neutrophils % % Lymphocytes % % Monocytes % % Eosinophils % % Basophils % % Neutrophils # (1.3-7.7) k/uL Lymphocytes # (1.0-4.8) k/uL Monocytes # (0-1.0) k/uL Eosinophils # (0-0.7) k/uL Basophils # (0-0.2) k/uL PT 9.8 (9.0-12.0) sec INR 0.9 (<1.2) APTT 22.6 (22.0-30.0) sec Sodium (137-145) mmol/L Potassium (3.5-5.1) mmol/L Chloride (98-107) mmol/L Carbon Dioxide (22-30) mmol/L Anion Gap mmol/L BUN (7-17) mg/dL Creatinine (0.52-1.04) mg/dL Est GFR (CKD-EPI)AfAm (>60 ml/min/1.73 sqM) Est GFR (CKD-EPI)NonAf (>60 ml/min/1.73 sqM) Glucose (74-99) mg/dL Calcium (8.4-10.2) mg/dL Total Bilirubin (0.2-1.3) mg/dL AST (14-36) U/L ALT (9-52) U/L Alkaline Phosphatase (38-126) U/L Total Protein (6.3-8.2) g/dL Albumin (3.5-5.0) g/dL Urine Color Urine Appearance (Clear) Urine pH (5.0-8.0) Ur Specific [place] (1.001-1.035) Urine Protein (Negative) Urine Glucose (UA) (Negative) Urine Ketones (Negative) Urine Blood (Negative) Urine Nitrite (Negative) Urine Bilirubin (Negative) Urine Urobilinogen (<2.0) mg/dL Ur Leukocyte Esterase (Negative) Urine RBC (0-5) /hpf Urine WBC (0-5) /hpf Ur Squamous Epith Cells (0-4) /hpf Urine Bacteria (None) /hpf Urine Mucus (None) /hpf Disposition Is patient prescribed a controlled substance at d/c from ED?: No <Yu Castano - Last Filed: 03/20/19 18:41> <Merlin Guerra - Last Filed: 03/20/19 19:11> Clinical Impression: Fall, Headache Disposition: HOME SELF-CARE Condition: Stable Instructions (If sedation given, give patient instructions): Fall Prevention for Older Adults (ED) Additional Instructions: Please return to the Emergency Department if symptoms worsen or any other concerns. Follow-up with PCP as needed Referrals: Terrie Buitrago MD [Primary Care Provider] - 1-2 days
[2019-03-20 14:44] LABS: Appearance,Urine Cloudy (Clear); Bacteria,Urine Rare /hpf; Bilirubin,Urine Negative (Negative); Blood,Urine Trace (Negative); Color,Urine Yellow; Glucose,Urine (UA) Negative (Negative); Ketones,Urine Negative (Negative); Leukocyte Esterase,Urine Large (Negative); Mucus,Urine Rare /hpf; Nitrite,Urine Negative (Negative); PH, Urine 5.5 (5.0-8.0); Protein,Urine Negative (Negative); RBC,Urine 8 /hpf (0-5); Specific Gravity,Urine 1.012 (1.001-1.035); Squamous Epithelial Cell,Urine 3 /hpf (0-4); Urobilinogen,Urine <2.0 mg/dL (<2.0); WBC,Urine 10 /hpf (0-5)
[2019-03-20 15:03] LABS: Basophils % (A) 1 %; Eosinophils # (A) 0.4 k/uL (0-0.7); Eosinophils % (A) 5 %; HCT 44.6 % (34.0-46.0); HGB 14.4 gm/dL (11.4-16.0); Lymphocytes # (A) 0.8 k/uL (1.0-4.8); Lymphocytes % (A) 11 %; MCH 31.2 pg (25.0-35.0); MCHC 32.3 g/dL (31.0-37.0); MCV 96.7 fL (80.0-100.0); Mean Platelet Volume 7.4; Monocytes # (A) 0.5 k/uL (0-1.0); Monocytes % (A) 7 %; Neutrophils # (A) 5.3 k/uL (1.3-7.7); Neutrophils % (A) 74 %; Platelet Count 248 k/uL (150-450); RBC 4.61 m/uL (3.80-5.40); RDW 14.4 % (11.5-15.5); WBC 7.2 k/uL (3.8-10.6)
[2019-03-20 15:12] LABS: Albumin 4.4 g/dL (3.5-5.0); Calcium 10.3 mg/dL (8.4-10.2); INR 0.9 (<1.2); Partial Thromboplastin Time 22.6 sec (22.0-30.0); Potassium 4.6 mmol/L (3.5-5.1); Prothrombin Time 9.8 sec (9.0-12.0); Total Bilirubin 0.6 mg/dL (0.2-1.3); Total Protein 7.7 g/dL (6.3-8.2)
--- NOTE | 2019-03-20 15:19 | CT ---
EXAMINATION TYPE: CT brain wo con DATE OF EXAM: 03/20/2019 COMPARISON: 07/13/2018 HISTORY: Fall 1 week ago with Left sided facial injury. Weakness and fatigue since CT DLP: 1158.4 mGycm Automated exposure control for dose reduction was used. TECHNIQUE: CT scan of the head is performed without contrast. FINDINGS: There is no acute intracranial hemorrhage or midline shift identified. There is diffuse v entricular and sulcal prominence consistent with diffuse age-related cerebral atrophy. No suspicious extra-axial fluid collection. Benign dystrophic calcifications of the basal ganglia are seen bilater ally. There is low-attenuation in the periventricular white matter consistent with chronic small vess el ischemic change. The globes are intact and the visualized sinuses are clear. Internal carotid a rtery prominence at the terminus is seen similar to the prior as well as prominence in size of the ba silar artery measuring up to 6 mm. Subcentimeter mucosal retention cyst is seen nondependently within the right anterior maxillary sinus. Remaining paranasal sinuses and mastoid air cells are well aerat ed. Cerebellar tonsils are low-lying terminating approximately 2 mm below the foramen magnum. This is a stable finding. IMPRESSION: 1. No acute intracranial hemorrhage or midline shift. There is diffuse age-related cerebral atrophy and chronic small vessel ischemic change noted. 2. Stable prominence of the right ICA terminus and basilar artery caliber. Basilar artery prominence could represent dolichoectasia. CTA or MRA could evaluate for right ICA terminus aneurysm.
[2019-03-20 16:04] VITALS: BP 140/92; PULSE 79
== END 2019-03-20 16:14 | disposition home or self-care (01) ==
LOC: EC 12:52
DX: R51 Headache (principal); I48.91 Unspecified atrial fibrillation; E78.5 Hyperlipidemia, unspecified; E03.9 Hypothyroidism, unspecified; I10 Essential (primary) hypertension; Z79.01 Long term (current) use of anticoagulants; Z79.890 Hormone replacement therapy; Z79.899 Other long term (current) drug therapy; Z88.8 Allergy status to other drugs, medicaments and biological substances; Z85.72 Personal history of non-Hodgkin lymphomas; Z85.828 Personal history of other malignant neoplasm of skin; W01.198A Fall on same level from slipping, tripping and stumbling with subsequent striking against other object, initial encounter; Y93.01 Activity, walking, marching and hiking
CPT/HCPCS: 36415; 70450; 80053; 81001; 85025; 85610; 85730; 99284

== ENCOUNTER 2022-05-24 07:11 | Emergency (ER) | payer MEDICARE ==
[2022-05-24] MEDS ORDERED: KETOROLAC 15 MG/ML 1 ML VIAL IVP STA (07:31)
[2022-05-24] MEDS ORDERED: ORPHENADRINE 30 MG/ML 2 ML VIAL IVP STA (07:31)
--- NOTE | 2022-05-24 08:14 | XR ---
EXAMINATION TYPE: XR lumbar spine 2 or 3V DATE OF EXAM: 05/24/2022 COMPARISON: None HISTORY: Pain with sciatica TECHNIQUE: 3 view lumbar spine FINDINGS: There are 5 lumbar-type vertebral bodies. Pedicles are intact. Disc space narrowing is pres ent at L3-4 and milder disc space narrowing present at L2-3 and L4-5. Spondylosis is present. Scolios is is present with the convexity to the right. No spondylolisthesis is evident. Vascular calcificatio n is in the abdominal aorta. IMPRESSION: 1. Degenerative disc changes L2-3 through L4-5 greatest at L3-4.
--- NOTE | 2022-05-24 08:15 | XR ---
EXAMINATION TYPE: XR femur RT DATE OF EXAM: 05/24/2022 COMPARISON: None HISTORY: Right sciatica TECHNIQUE: 2 view right femur FINDINGS: Femoral head articulates with the acetabulum. No acute fracture or dislocation is evident. Knee joint space may have minimal degenerative change. IMPRESSION: 1. No acute osseous abnormality right femur.
--- NOTE | 2022-05-24 09:00 | US ---
EXAMINATION TYPE: US venous doppler duplex LE RT DATE OF EXAM: 05/24/2022 5:47 AM COMPARISON: US 2016 CLINICAL HISTORY: pain. Right leg pain SIDE PERFORMED: Right TECHNIQUE: The lower extremity deep venous system is examined utilizing real time linear array sonog girish with graded compression, doppler sonography and color-flow sonography. VESSELS IMAGED: Common Femoral Vein Deep Femoral Vein Greater Saphenous Vein * Femoral Vein Popliteal Vein Small Saphenous Vein * Proximal Calf Veins (* superficial vessels) Right Leg: Appears negative for DVT Grayscale, color doppler, spectral doppler imaging performed of the deep veins of the lower extremiti es. There is normal flow, compressibility, vascular waveforms. IMPRESSION: No evidence of deep vein thrombosis of the right lower extremity.
[2022-05-24] MEDS ORDERED: ACET/COD 300 MG/30 MG STARTER PACK 6 TAB BTL PO STA (09:11)
[2022-05-24] MEDS ORDERED: methylPREDNISolone SOD SUCCI 125 MG/2 ML VIAL IV STA (09:11)
--- NOTE | 2022-05-24 09:12 | ED ---
General Adult HPI - General Chief complaint: Extremity Injury, Lower Stated complaint: right upper leg pain Time Seen by Provider: 05/24/22 07:12 Source: patient, EMS, RN notes reviewed Mode of arrival: EMS Limitations: no limitations - History of Present Illness Initial comments: 77-year-old female presented emergency department with chief complaint of right leg pain. Patient states she has chronic sciatica but states is more localized. Patient states does have some similar properties. Patient denies any trauma. Patient is just worse with movement has been increasing last few days. Patient did receive pain medication prior arrival EMS which helped some. Patient states she currently does state and radiates down. She denies any abdominal pain. Denies any recent fall. Patient does have some known back issues. - Related Data Home Medications Medication Instructions Recorded Confirmed Raloxifene [Evista] 60 mg PO DAILY 02/27/15 07/13/18 Cholecalciferol [Vitamin D3 (25 2,000 unit PO DAILY 06/26/15 07/13/18 Mcg = 1000 Iu)] Cyanocobalamin [Vitamin B-12] 1,000 mcg PO DAILY 06/26/15 07/13/18 Levothyroxine Sodium [Synthroid] 150 mcg PO DAILY 06/26/15 07/13/18 Atorvastatin [Lipitor] 20 mg PO HS 10/18/15 07/13/18 Magnesium Chloride [Slow-Mag] 128 mg PO DAILY 05/04/17 07/13/18 Rivaroxaban [Xarelto] 20 mg PO DAILY@1600 05/04/17 07/13/18 Metoprolol Tartrate [Lopressor] 25 mg PO HS 07/13/18 07/13/18 Previous Rx's Medication Instructions Recorded lisinopriL [Zestril] 2.5 mg PO DAILY #30 tab 07/03/15 Cephalexin [Keflex] 500 mg PO Q6HR 5 Days #20 cap 07/13/18 Orphenadrine [Norflex] 100 mg PO Q12H #14 tab 05/24/22 predniSONE 50 mg PO DAILY #5 tab 05/24/22 Allergies Allergy/AdvReac Type Severity Reaction Status Date / Time paroxetine HCl [From Paxil] Allergy Hallucinati Verified 05/24/22 07:24 ons pregabalin [From Lyrica] Allergy Hallucinati Verified 05/24/22 07:24 ons Review of Systems ROS Statement: Those systems with pertinent positive or pertinent negative responses have been documented in the HPI. ROS Other: All systems not noted in ROS Statement are negative. Past Medical History Past Medical History: Atrial Fibrillation, Cancer, Fibromyalgia, Hyperlipidemia, Hypertension, Thyroid Disorder Additional Past Medical History / Comment(s): Pt recently admitted to [facility] 05/07/17-had cardiac ablation. Other hx: AFib/RVR/tachycardia, lymphoma diagnosed fall 2014 with with abdominal mass- last chemo completed 05/21/15 and mass is gone per pt, has periods of weakness ever since cancer diagnosis, shingles fall 2014, anemia, essential tremors, hypothyroid, uti, skin cancer with removal. History of Any Multi-Drug Resistant Organisms: None Reported Past Surgical History: Cardiac Ablation, Tonsillectomy Additional Past Surgical History / Comment(s): lymph node bx-forehead, hemorrhoids, left carotid endartectomy 2004, bilateral cataracts removed with lens implants, COLONOSCOPY, basal cell skin cancer removed from abdomin, colonoscopy Past Anesthesia/Blood Transfusion Reactions: Previous Problems w/ Anesthesia Additional Past Anesthesia/Blood Transfusion Reaction / Comment(s): Patient states that anaesthesia wears off very slowly and she is drowsy for a while. Past Psychological History: No Psychological Hx Reported Past Alcohol Use History: None Reported Past Drug Use History: None Reported - Past Family History Sister(s) Family Medical History: Cancer Mother Family Medical History: Congestive Heart Failure (CHF), Coronary Artery Disease (CAD) Additional Family Medical History / Comment(s): Mother smoked. She at age 75 yrs. Father Family Medical History: Congestive Heart Failure (CHF), Coronary Artery Disease (CAD), Dementia Additional Family Medical History / Comment(s): Father smoked. He at age 75 yrs. General Exam Limitations: no limitations General appearance: alert, in no apparent distress Neck exam: Present: normal inspection. Absent: tenderness, meningismus, lymphadenopathy Respiratory exam: Present: normal lung sounds bilaterally. Absent: respiratory distress, wheezes, rales, rhonchi, stridor Cardiovascular Exam: Present: regular rate, normal rhythm, normal heart sounds. Absent: systolic murmur, diastolic murmur, rubs, gallop, clicks Extremities exam: Present: other (Bilateral lower extremity strength equal bilaterally pain with range of motion the right, neurovascular intact with equal pedal pulses, equal and equal warmth.) Course Vital Signs 05/24/22 07:19 Temperature 98.1 F Pulse Rate 102 H Respiratory 18 Rate Blood Pressure 175/87 O2 Sat by Pulse 97 Oximetry Medical Decision Making - Medical Decision Making Patient did receive Toradol, Norflex her symptoms improve her symptoms. Patient has degenerative changes actively this related to lumbar radiculopathy Patient will be discharged in stable condition with close follow-up return parameters were discussed. Disposition Clinical Impression: Right leg pain, Lumbar radiculopathy, acute Disposition: HOME SELF-CARE Condition: Stable Instructions (If sedation given, give patient instructions): Lumbar Radiculopathy (ED), Leg Pain (ED) Additional Instructions: Please return to the Emergency Department if symptoms worsen or any other concerns. Prescriptions: Orphenadrine [Norflex] 100 mg PO Q12H #14 tab predniSONE 50 mg PO DAILY #5 tab Is patient prescribed a controlled substance at d/c from ED?: No Referrals: Terrie Buitrago MD [Primary Care Provider] - 1-2 days Time of Disposition: 09:11
[2022-05-24 09:35] VITALS: BP 150/80; PULSE 107; RESP 20; TEMP 98.8
== END 2022-05-24 10:07 | disposition home or self-care (01) ==
LOC: EC 07:11
DX: M54.16 Radiculopathy, lumbar region (principal); I48.91 Unspecified atrial fibrillation; E78.5 Hyperlipidemia, unspecified; I10 Essential (primary) hypertension; E07.9 Disorder of thyroid, unspecified; Z88.8 Allergy status to other drugs, medicaments and biological substances; Z79.01 Long term (current) use of anticoagulants; Z79.890 Hormone replacement therapy; Z79.899 Other long term (current) drug therapy
CPT/HCPCS: 99284; 96374; 96375; 72100; 73552; 93971; J2360; J2930; J1885

== ENCOUNTER 2022-09-19 08:54 | Day surgery (SDC) | payer MEDICARE ==
[2022-09-15 12:39] VITALS: BMI 26.6
[~2022-09-19 08:54] MED LIST changes: +LIDOCAINE 1% (10MG/ML) FOR IV START INTRADERMA PRN; +ONDANSETRON 4 MG/2 ML VIAL IVP PRN; -SODIUM CHLORIDE 0.9% 1,000 ML IV SCH
[2022-09-19 09:23] VITALS: RESP 16; TEMP 98.6
[2022-09-19] MEDS ORDERED: LIDOCAINE 2% INJ 20 MG/ML (2 ML VIAL) ONE (09:48)
[2022-09-19] MEDS ORDERED: PROPOFOL 10 MG/ML 20 ML VIAL IV ONE (09:48)
--- NOTE | 2022-09-19 09:53 | P.GSHP ---
History of Present Illness H&P Date: 09/19/22 Chief Complaint: Abnormal stool test 77-year-old female here today for colonoscopy. Recent stool test that was abnormal. No rectal bleeding or melena. No family history of colon cancer. Past Medical History Past Medical History: Atrial Fibrillation, Cancer, Eye Disorder, Fibromyalgia, Hyperlipidemia, Hypertension, Thyroid Disorder Additional Past Medical History / Comment(s): Hx lymphoma 2015 with abdominal mass, last chemo 05/21/15, has periods of weakness ever since cancer diagnosis. Hx shingles 2015, anemia, essential tremors, hypothyroid, UTI's, skin cancer with removal. History of Any Multi-Drug Resistant Organisms: None Reported Past Surgical History: Cardiac Ablation, Tonsillectomy Additional Past Surgical History / Comment(s): Lymph node biopsy of forehead, hemorrhoidectomy, left carotid endarterectomy X2, last in 2004, bilateral cataracts removed with lens implants, colonoscopy, basal cell skin cancer removed from abdomen. Past Anesthesia/Blood Transfusion Reactions: Previous Problems w/ Anesthesia Additional Past Anesthesia/Blood Transfusion Reaction / Comment(s): "Anesthesia wears off very slowly, am drowsy for a while". Past Psychological History: No Psychological Hx Reported Smoking Status: Never smoker Past Alcohol Use History: None Reported Past Drug Use History: None Reported - Past Family History Sister(s) Family Medical History: Cancer Additional Family Medical History / Comment(s): Breast cancer. Mother Family Medical History: Congestive Heart Failure (CHF), Coronary Artery Disease (CAD) Additional Family Medical History / Comment(s): Mother smoked. She at age 75 yrs. Father Family Medical History: Congestive Heart Failure (CHF), Coronary Artery Disease (CAD), Dementia Additional Family Medical History / Comment(s): Father smoked. He at age 75 yrs. Medications and Allergies Home Medications Medication Instructions Recorded Confirmed Type Rivaroxaban [Xarelto] 20 mg PO HS 05/04/17 09/19/22 History Metoprolol Tartrate [Lopressor] 25 mg PO QAM 07/13/18 09/19/22 History Acetaminophen Tab [Tylenol Tab] 500 mg PO HS 09/15/22 09/19/22 History Atorvastatin [Lipitor] 40 mg PO HS 09/15/22 09/19/22 History Levothyroxine Sodium [Synthroid] 100 mcg PO QAM 09/15/22 09/19/22 History Vit C/E/Zn/Coppr/Lutein/Zeaxan 1 each PO HS 09/15/22 09/19/22 History [Preservision Areds 2 Softgel] amLODIPine BESYLATE 2.5 mg PO HS 09/15/22 09/19/22 History lisinopriL [Zestril] 2.5 mg PO QAM 09/15/22 09/19/22 History Allergies Allergy/AdvReac Type Severity Reaction Status Date / Time carvedilol Allergy Headache, Verified 09/19/22 09:23 dizziness paroxetine HCl [From Paxil] Allergy Hallucinati Verified 09/19/22 09:23 ons pregabalin [From Lyrica] Allergy Hallucinati Verified 09/19/22 09:23 ons Surgical - Exam Vital Signs Temp Pulse Resp BP Pulse Ox 98.6 F 107 H 16 122/71 98 09/19/22 09:21 09/19/22 09:21 09/19/22 09:21 09/19/22 09:21 09/19/22 09:21 Physical exam: General: Well-developed, well-nourished HEENT: Normocephalic, sclerae nonicteric Abdomen: Nontender, nondistended Extremities: No edema Neuro: Alert and oriented Assessment and Plan (1) Abnormal stool test Narrative/Plan: Will proceed with colonoscopy Current Visit: Yes Status: Acute Code(s): R19.5 - OTHER FECAL ABNORMALITIES SNOMED Code(s): 828397044
--- NOTE | 2022-09-19 10:06 | P.PCN ---
Date of Procedure: 09/19/22 Procedure(s) Performed: PREOPERATIVE DIAGNOSIS: Abnormal stool study POSTOPERATIVE DIAGNOSIS: Diverticulosis, hemorrhoids PROCEDURE: Colonoscopy ANESTHESIA: MAC SURGEON: Justin Buitrago M.D. SPECIMENS: None ENDOSCOPIC PROCEDURE: The patient was placed on the endoscopy table in the left decubitus position. The Olympus colonoscope was inserted into the anus and passed under direct visualization to the base of the cecum. The appendiceal orifice was visualized. From that point the scope was slowly withdrawn inspecting all surfaces carefully. There were no neoplastic inflammatory or polypoid lesions throughout the cecum, ascending, transverse, descending, sigmoid and rectum. There was mild left-sided diverticulosis noted. Patient had small internal hemorrhoids at the anus without evidence for recent or active bleeding. The patient was taken to the recovery room in stable condition per anesthesia guidelines. RECOMMENDATIONS: Resume diet. Increase fiber.
[2022-09-19 10:26] VITALS: BP 139/78; PULSE 96
== END 2022-09-19 10:54 | disposition home or self-care (01) ==
LOC: ORWHC2ENDO 08:54
PROVIDERS: ATTEND Surgery
DX: K57.30 Diverticulosis of large intestine without perforation or abscess without bleeding (principal); K64.8 Other hemorrhoids; I48.91 Unspecified atrial fibrillation; I10 Essential (primary) hypertension; E78.5 Hyperlipidemia, unspecified; E03.9 Hypothyroidism, unspecified; Z79.890 Hormone replacement therapy; H57.9 Unspecified disorder of eye and adnexa; G25.0 Essential tremor; Z85.828 Personal history of other malignant neoplasm of skin; Z92.21 Personal history of antineoplastic chemotherapy; D64.9 Anemia, unspecified; M79.7 Fibromyalgia; Z85.72 Personal history of non-Hodgkin lymphomas; Z98.890 Other specified postprocedural states; Z80.3 Family history of malignant neoplasm of breast; Z82.49 Family history of ischemic heart disease and other diseases of the circulatory system; Z79.02 Long term (current) use of antithrombotics/antiplatelets; Z79.899 Other long term (current) drug therapy; Z79.01 Long term (current) use of anticoagulants; Z88.8 Allergy status to other drugs, medicaments and biological substances
CPT/HCPCS: 45378; J2704; J2001